=== PATIENT | male | born 1960 | race Caucasian/White ===

== ENCOUNTER 2020-03-07 13:55 | Emergency (ER) | payer OTHER, SELFPAY | END 2020-03-07 15:17 | disposition left against medical advice (07) | PROVIDERS: Emergency Provider Emergency Medicine; PCP Internal Medicine | DX: T63.481A Toxic effect of venom of other arthropod, accidental (unintentional), initial encounter (principal); M79.606 Pain in leg, unspecified; Y92.9 Unspecified place or not applicable | CPT/HCPCS: 99281 ==

== ENCOUNTER 2020-03-07 18:16 | Emergency (ER) | payer OTHER, SELFPAY | END 2020-03-07 19:30 | disposition left against medical advice (07) | PROVIDERS: Emergency Provider Emergency Medicine; PCP Internal Medicine | DX: T63.481A Toxic effect of venom of other arthropod, accidental (unintentional), initial encounter (principal); Y92.9 Unspecified place or not applicable | CPT/HCPCS: 99281 ==

== ENCOUNTER 2020-03-09 08:26 | Emergency (ER) | payer OTHER, SELFPAY ==
[2020-03-09 08:55] VITALS: BP 143/94; PULSE 61; RESP 16; TEMP 36.6; O2SAT 98; BMI 25.1
--- NOTE | 2020-03-09 09:20 | XR_ITS ---
EXAMINATION: XR TIBIA AND FIBULA, LEFT CLINICAL INFORMATION: Anterior lower leg soft tissue foreign body versus insect in soft tissue. COMPARISON: None TECHNIQUE: AP x2 and lateral view of the lower leg are obtained for 3 views. FINDINGS: There is no visible radiopaque soft tissue foreign body. No gas tracking in soft tissue planes. Bony structures appear normal in attenuation. There is no osteopenia. No periostitis or destructive process. No fracture or dislocation. XR/XR tibia fibula LT 2V IMPRESSION: No visible radiopaque soft tissue foreign body or gas tracking in soft tissues. No focal bony abnormality.
--- NOTE | 2020-03-09 09:21 | ED.SKABFB ---
HPI - Skin/Abscess/Foreign Bdy General Chief complaint: Skin/Abscess/Foreign Body Stated complaint: tick left pardo area Time Seen by Provider: 03/09/20 09:20 Source: patient Mode of arrival: ambulatory History of Present Illness HPI narrative: 59-year-old male with no significant past medical history presenting to the ED complaining of tick/insect bite to left pardo x1 week. Reports feels like insect or tick is under the skin. Admits tried to dig it out in the beginning. Denies fever, chills, itching, FB sensation to other area Related Data Previous Rx's Medication Instructions Recorded doxycycline hyclate 100 mg PO BID 7 Days #14 cap 03/09/20 Allergies Allergy/AdvReac Type Severity Reaction Status Date / Time tramadol Allergy Unknown muscle Verified 04/29/15 00:00 cramps No Known Allergies Allergy Unverified 01/16/20 14:52 Review of Systems Review of Systems: Constitutional: No Weight loss, No Fever, No Chills Musculoskeletal: No joint pain, No Myalgias, No Joint Swelling Skin: +Skin Lesions, No rash Neuro: No Weakness, No Numbness, No Paresthesias Yes all other systems are reviewed and are negative [facility] Past Medical History Attestation statement: The following information was validated with the patient. Surgical History History of bunionectomy (~06/2016) History of excision of mass (~09/2013) History of right inguinal hernia repair (~2001) Family History Family History (Updated 02/27/20 @ 14:55 by Norma Troncoso Anthony) Maternal Grandmother History of diabetes mellitus History of hypertension Social History Social History Advance Directives: No Advance Directives Information Provided: No Physical Exam Vital Signs: Vital Signs: Last Vital Signs Temp 98 F 03/09/20 08:55 Pulse 61 03/09/20 08:55 Resp 16 03/09/20 08:55 BP 143/94 H 03/09/20 08:55 Pulse Ox 98 03/09/20 08:55 Body Mass Index 25.1 Const: General: cooperative and healthy appearing Orientation/consciousness: patient oriented x3 Limitations: no limitations HENMT: Head: Yes normal to inspection Ears: hearing grossly normal bilaterally General nose exam: Normal external nose present Face and sinus: Yes normal facial exam Eyes: General: appearance normal, both eyes and all related structures EOM: EOMs intact bilaterally Neck: Neck: Yes normal visual inspection Chest: Chest palpation & inspection: normal inspection of the chest Resp: Effort & Inspection: normal respiratory effort : General: Yes no CVA tenderness Back/Spine/Pelvis: Back: no CVA tenderness Skin: Other: Small ulcerated area noted to anterior left pardo with mild surrounding erythema. No fluctuance/induration or drainage, no appreciable FB Neuro: General: patient oriented x3 Gait exam (Neuro): Normal gait present Extrem: General: Yes normal to inspection Course Course Course Narrative: -x-ray without acute findings MDM - Skin/Abscess/Foreign Bdy MDM Narrative Medical decision making narrative: On exam VSS, NAD/well-appearing. Exam as above. Concern for early cellulitis due to patient trying to pick at area. No appreciable FB. Low concern for Lyme, no Lyme like rash, no streaking. Will obtain x-ray, and treat for early cellulitis Discharge Plan Discharge Clinical Impression: Cellulitis Patient Disposition: Home, Self-Care Instructions: Cellulitis (ED) Additional Instructions: Looks like you have an early infection in your leg likely from picking at area There was no foreign body or abnormality seen on x-ray Doxycycline as antibiotic, take as prescribed AVOID THE SUN WITH DOXYCYCLINE CAN MAKE YOU HYPERSENSITIVE TO SUNLIGHT If the area on your leg grows, worsens, pain becomes unbearable/severe or you develop fever return to the ED Follow-up with her doctor Prescriptions: New doxycycline hyclate 100 mg capsule 100 mg PO BID 7 Days Qty: 14 RF: 0 Referrals: Chloe Austin MD [Primary Care Provider] - 3 days
== END 2020-03-09 10:43 | disposition home or self-care (01) ==
PROVIDERS: Emergency Provider Emergency Medicine; PCP Internal Medicine
DX: L03.116 Cellulitis of left lower limb (principal); M79.605 Pain in left leg; Z79.899 Other long term (current) drug therapy
CPT/HCPCS: 73590; 99283

== ENCOUNTER 2020-04-02 08:04 | Outpatient (REF) | payer OTHER, SELFPAY | END 2020-04-02 08:05 | disposition home or self-care (01) | LOC: HO.LAB 08:04 | PROVIDERS: Visit Provider Internal Medicine | DX: Z20.828 Contact with and (suspected) exposure to other viral communicable diseases (principal) | CPT/HCPCS: C9803; U0003 ==

== ENCOUNTER 2020-08-10 07:11 | Outpatient (REF) | payer OTHER, SELFPAY ==
--- NOTE | ~2020-08-10 | XR_ITS ---
EXAMINATION: XR LUMBOSACRAL SPINE CLINICAL INFORMATION: Back pain COMPARISON: Previous lumbar spine x-ray May 2013 and lumbar spine MRI December 2018 TECHNIQUE: Three views of the lumbosacral spine. FINDINGS: There is mild curvature of the lower lumbar spine to the left. Bone alignment is otherwise normal. No fracture or dislocation is seen. There is evidence of multilevel degenerative disc disease from L2-L3 to L5-S1. There is lower lumbar spine facet arthritis. XR/XR lumbar spine 2-3V IMPRESSION: Mild curvature of the lower lumbar spine to the left and multilevel degenerative disc disease and facet arthritis.
[2020-08-10 09:00] LABS: Alanine Aminotransferase 228 U/L (0-40); Albumin Level 4.4 g/dL (3.5-5.0); Alkaline Phosphatase 76 U/L (39-117); Anion Gap 13 (12-20); Aspartate Amino Transferase 125 U/L (5-37); Bilirubin Total 0.6 mg/dL (0.0-1.0); Blood Urea Nitrogen 17 mg/dL (9-16); Calcium 9.1 mg/dL (8.4-10.2); Carbon Dioxide 26 mmol/L (22-29); Chloride 105 mmol/L (96-108); Cholesterol 225 mg/dL; Estimated Glomerular Filt Rate > 60; Glucose Fasting 121 mg/dL (60-99); HDL Cholesterol 101 mg/dL; LDL Cholesterol Calculated 111 mg/dl; Potassium 4.9 mmol/L (3.3-5.1); Sodium 139 mmol/L (135-145); Total Protein 6.7 g/dL (6.5-8.0); Triglycerides 66 mg/dL
[2020-08-14 15:12] LABS: Vitamin D 25-OH, D2 <4 ng/mL; Vitamin D 25-OH, D3 13 ng/mL; Vitamin D 25-OH, Total 13 ng/mL (30-100)
== END 2020-08-10 07:12 | disposition home or self-care (01) ==
LOC: HO.LAB 07:11
PROVIDERS: PCP Internal Medicine; Visit Provider Internal Medicine
DX: M54.9 Dorsalgia, unspecified (principal); E55.9 Vitamin D deficiency, unspecified; E78.5 Hyperlipidemia, unspecified
CPT/HCPCS: 36415; 72100; 80053; 80061; 82306

== ENCOUNTER 2020-09-09 10:24 | Outpatient (REF) | payer OTHER, SELFPAY ==
--- NOTE | ~2020-09-09 | XR_ITS ---
EXAMINATION: CERVICAL AND THORACIC SPINE X-RAY CLINICAL INFORMATION: Pain COMPARISON: Previous chest x-ray May 2013 TECHNIQUE: 3 views of the cervical spine and 2 views of the thoracic spine FINDINGS: Cervical spine: Bone alignment is normal. No fracture or dislocation is seen. There is degenerative spondylosis and degenerative disc disease at C4-C5, C5-C6 and C6-C7. Prevertebral soft tissues are normal. Thoracic spine: There is mild curvature of the midthoracic spine to the right with apex at T6-T7. This is similar to May 2013 exam. Bone alignment is otherwise normal. No fracture or dislocation is seen. There is mild degenerative spondylosis of the lower thoracic spine. Paraspinal soft tissues are unremarkable. XR/XR thoracic spine 2V IMPRESSION: Cervical spine: Degenerative spondylosis and degenerative disc disease from C4-C5 to C6-C7. Thoracic spine: Mild scoliosis of the midthoracic spine and spondylosis of the lower thoracic spine.
--- NOTE | ~2020-09-09 | US_ITS ---
EXAMINATION: US ABDOMEN LIMITED WITH LIVER ELASTOGRAPHY CLINICAL INFORMATION: Elevated transaminase COMPARISON: None. TECHNIQUE: Real-time imaging of the abdominal viscera. Noninvasive ultrasound liver fibrosis assessment is performed using Kanu ElastPQ point quantification shear wave elastography (pSWE) with a C5-2 MHz transducer. Multiple elastography samples are obtained. FINDINGS: PANCREAS: The visualized pancreatic head and body are normal in appearance. The remainder of the pancreas is obscured from visualization by the overlying bowel gas. LIVER: Liver echotexture is increased. The liver is enlarged. The liver contour is normal.. No focal lesion or intrahepatic biliary duct dilatation. The right lobe measures 17 cm in length. The left lobe measures 8.2 cm in length. Portal flow is normal/hepatopedal Shear wave liver elastography median stiffness is 1.6 m/s (reference: normal median stiffness is 1.3 m/s or less). IQR/median stiffness to assess sampling precision is 0.1 (reference: good quality data set is IQR/median stiffness of 0.15 or less). GALLBLADDER: Normal. The gallbladder is physiologically distended without evidence of stones, sludge, polyps, wall thickening or pericholecystic fluid. COMMON BILE DUCT: Normal in caliber measuring 0.4 cm in diameter. RIGHT KIDNEY: Normal. No hydronephrosis. No renal calculi or focal parenchymal lesions. The kidney measures 9.2 cm in maximum dimension. FREE FLUID: None. US/US abdomen alberto w elastography IMPRESSION: 1. Impression: Enlarged echogenic liver probably representing fatty infiltration. Limited visualization of the tail of the pancreas. 2. Liver elastography: Adequate sampling. In the absence of other known clinical signs, rule out compensated advanced chronic liver disease. REFERENCE: Society of Radiologists in Ultrasound Liver Stiffness Thresholds (2020): LIVER STIFFNESS THRESHOLDS: *Liver Stiffness equal or less than 1.3 m/s: High probability of being normal. *Liver Stiffness less than 1.7 m/s: In the absence of other known clinical signs, rules out compensated advanced chronic liver disease. *Liver Stiffness 1.7-2.1 m/s: Suggestive of compensated advanced chronic liver disease but need further test for confirmation. *Liver Stiffness over 2.1 m/s: Rules in compensated advanced chronic liver disease. *Liver Stiffness over 2.4 m/s: Suggestive of clinically significant portal hypertension. QUALITY OF DATA SET: *IQR/Median value equal or less than 0.15 implies a quality data set. *IQR/Median value over 0.15 implies a poor quality data set. SIGNIFICANT CHANGE FROM PRIOR EXAM: Significant change if liver stiffness measurement is 10% or greater from prior exam. OTHER CONSIDERATIONS: The stage of liver fibrosis may be overestimated in the setting of acute hepatitis, liver inflammation, elevated liver function tests, hepatic vascular congestion, obstructive cholestasis, non-fasting state, and infiltrative diseases such as amyloidosis and lymphoma. In some patients with NAFLD, the liver stiffness thresholds for compensated advanced chronic liver disease may be lower. In causes other than viral hepatitis and NAFLD, liver stiffness thresholds are not well established.
--- NOTE | ~2020-09-09 | XR_ITS ---
EXAMINATION: CERVICAL AND THORACIC SPINE X-RAY CLINICAL INFORMATION: Pain COMPARISON: Previous chest x-ray May 2013 TECHNIQUE: 3 views of the cervical spine and 2 views of the thoracic spine FINDINGS: Cervical spine: Bone alignment is normal. No fracture or dislocation is seen. There is degenerative spondylosis and degenerative disc disease at C4-C5, C5-C6 and C6-C7. Prevertebral soft tissues are normal. Thoracic spine: There is mild curvature of the midthoracic spine to the right with apex at T6-T7. This is similar to May 2013 exam. Bone alignment is otherwise normal. No fracture or dislocation is seen. There is mild degenerative spondylosis of the lower thoracic spine. Paraspinal soft tissues are unremarkable. XR/XR cervical spine 3V IMPRESSION: Cervical spine: Degenerative spondylosis and degenerative disc disease from C4-C5 to C6-C7. Thoracic spine: Mild scoliosis of the midthoracic spine and spondylosis of the lower thoracic spine.
== END 2020-09-09 10:25 | disposition home or self-care (01) ==
LOC: HO.US 10:24
PROVIDERS: PCP Internal Medicine; Visit Provider Internal Medicine
DX: M54.2 Cervicalgia (principal); M54.9 Dorsalgia, unspecified; R74.01 Elevation of levels of liver transaminase levels
CPT/HCPCS: 72040; 72070; 76705; 76981

== ENCOUNTER → 2020-09-22 11:04 | Outpatient (BNVA) | payer OTHER, SELFPAY | PROVIDERS: PCP Internal Medicine; Referring Provider Internal Medicine; Visit Provider Nurse Practitioner | DX: R74.01 Elevation of levels of liver transaminase levels (principal); R10.9 Unspecified abdominal pain; R73.02 Impaired glucose tolerance (oral); D12.6 Benign neoplasm of colon, unspecified | CPT/HCPCS: 99202 ==

== ENCOUNTER 2020-09-25 12:54 | Outpatient (REF) | payer OTHER, SELFPAY ==
[2020-09-25 13:28] LABS: MANUAL DIFF FLAG NO
[2020-09-25 13:41] LABS: Basophils Absolute Auto 0.1 X10*3/uL (0.0-0.2); Eosinophils Absolute Auto 0.2 X10*3/uL (0.0-0.4); Eosinophils Percent Auto 4.8 % (0-4); Hematocrit 41.8 % (42-52); Hemoglobin 14.1 g/dl (14.0-18.0); Imm Gran Abs Auto 0.03 X10*3/uL (0.00-0.03); Imm Gran Pct Auto 0.6 % (0.0-0.4); Lymphocytes Absolute Auto 1.4 X10*3/uL (1.2-4.9); Lymphocytes Percent Auto 28.6 % (20-40); Mean Corpuscular HGB Conc 33.7 g/dl (31.0-36.0); Mean Corpuscular Hemoglobin 31.6 pg (27.0-33.0); Mean Corpuscular Volume 93.7 fL (80-98); Mean Platelet Volume 9.6 fL (9.4-12.4); Monocytes Absolute Auto 0.5 X10*3/uL (0.1-1.2); Monocytes Percent Auto 9.5 % (2-11); Neutrophils Absolute Auto 2.8 X10*3/uL (2.0-8.3); Neutrophils Percent Auto 55.5 % (45-73); Platelet Count 270 X10*3/uL (160-400); Red Blood Count 4.46 X10*6/uL (4.60-5.80); Red Cell Distribution Width 12.9 % (11.0-16.0)
[2020-09-25 13:49] LABS: Gamma Glutamyl Transpeptidase 41 U/L (11-51)
[2020-09-25 14:13] LABS: Ferritin 69 ng/mL (20-250)
[2020-09-27 15:27] LABS: Anti Nuclear Antibody Screen NEGATIVE (NEGATIVE)
[2020-09-29 04:53] LABS: HBS Num1 2.07 mIU/mL (0-7.99); HBc Num1 0.04 S/CO (0.00-0.79); Hepatitis B Core Antibody Nonreactive (Nonreactive); ~HepC Num1 0.03 S/CO (0.00-0.79); ~Hepatitis B Surface Antibody NONREACTIVE (Nonreactive); ~Hepatitis C Antibody Nonreactive (Nonreactive)
[2020-09-29 04:55] LABS: HBsAGNum1 0.18 S/CO (0.00-0.99); HIV AB/AG Nonreactive (Nonreactive); HIV Num 1 0.06 S/CO (0.00-0.99); Hepatitis B Surface Antigen Negative (Negative)
[2020-09-29 13:33] LABS: Alpha Fetoprotein 1.5 ng/mL (<6.1)
[2020-09-30 07:36] LABS: Hepatitis A Antibody IgM 0.31 Index (0-0.79); ~Hepatitis A Antibody IgM Nonreactive (Nonreactive)
[2020-09-30 16:31] LABS: Mitochondrial Antibodies NEGATIVE (NEGATIVE)
[2020-10-01 11:22] LABS: Smooth Muscle Antibody <20 U (<20)
== END 2020-09-25 12:55 | disposition home or self-care (01) ==
LOC: HO.LAB 12:54
PROVIDERS: PCP Internal Medicine; Visit Provider Nurse Practitioner
DX: R74.01 Elevation of levels of liver transaminase levels (principal); D12.6 Benign neoplasm of colon, unspecified
CPT/HCPCS: 36415; 82105; 82728; 82977; 85025; 86038; 86039; 86255; 86256; 86704; 86706; 86709; 86803; 87340; 87389

== ENCOUNTER 2020-11-04 10:17 | Outpatient (REF) | payer OTHER, SELFPAY ==
--- NOTE | ~2020-11-04 | US_ITS ---
EXAMINATION: US ABDOMEN LIMITED CLINICAL INFORMATION: Unspecified abdominal pain.? Abdominal wall hernia. COMPARISON: Limited abdominal ultrasound 09/09/2020. KUB 05/07/2015. TECHNIQUE: Real-time imaging of the left flank/abdominal wall, area indicated by patient. FINDINGS: No hernia is evident by ultrasound. No soft tissue mass or fluid collection is seen. US/US abdomen limited IMPRESSION: No hernia seen by ultrasound.
== END 2020-11-04 10:18 | disposition home or self-care (01) ==
LOC: HO.US 10:17
PROVIDERS: Visit Provider Nurse Practitioner
DX: R10.9 Unspecified abdominal pain (principal)
CPT/HCPCS: 76705

== ENCOUNTER 2020-12-04 12:38 | Day surgery (SDC) | payer OTHER, SELFPAY ==
[2020-11-30 11:01] VITALS: BMI 27.0
--- NOTE | 2020-12-03 11:51 | P.CONAN_ITS ---
Documented by User: Vidhya Miranda 12/03/20 11:53 HPI - Anesthesia Eval Consult details Narrative: 60yo M for Colonoscopy PMFSH Active Problems Active Problems: All Active Problems (Updated 09/22/20 @ 12:08 by KIMBERLY Olvera) Tubular adenoma of colon (Acute) Abdominal pain (Acute) Chest pain (Acute) Neck pain (Acute) Impaired glucose tolerance (Acute) Transaminitis (Acute) Back pain (Acute) Past Medical History Medical History Back pain Chest pain Impaired glucose tolerance Neck pain Transaminitis Family History Family History Maternal Grandmother History of diabetes mellitus History of hypertension Mother Medical history unknown Father Medical history unknown Son No problems noted. Son No problems noted. Son No problems noted. Daughter No problems noted. Surgical History Surgical History H/O colonoscopy History of bunionectomy (~06/2016) History of excision of mass (~09/2013) History of right inguinal hernia repair (~2001) History of varicose vein ligation and stripping Social History Social History Alcohol intake: current Alcohol intake frequency: 0-2 drinks per day Alcohol type: beer Patient Tobacco Use Status: Never used Tobacco Advance Directives Information Provided: No Meds Allergies Allergy/AdvReac Type Severity Reaction Status Date / Time tramadol Allergy Intermediate muscle Verified 12/04/20 13:04 cramps Home Medications Medication Instructions Recorded Confirmed Last Taken Type cyclobenzaprine 10 mg tablet 10 mg PO BEDTIME PRN 08/10/20 11/30/20 Unknown History Exam Exam Date and Time: December 03, 2020 1151 Height,Weight and Vital Signs: Height 5 ft 9 in Weight 83.064 kg Pertinent Lab Results Pertinent Lab Results: Laboratory Tests 08/10/20 09/25/20 07:38 13:01 WBC 5.0 Hgb 14.1 Hct 41.8 L Plt Count 270 Sodium 139 Potassium 4.9 Chloride 105 Carbon Dioxide 26 BUN 17 H Creatinine 1.10 Assessment and Plan Assessment Anesthesia Assessment: Chart Reviewed Documented by User: Lety Rooney MD 12/04/20 14:03 PMFSH Past Medical History Medical History Back pain Chest pain Impaired glucose tolerance Neck pain Transaminitis Family History Family History Maternal Grandmother History of diabetes mellitus History of hypertension Mother Medical history unknown Father Medical history unknown Son No problems noted. Son No problems noted. Son No problems noted. Daughter No problems noted. Surgical History Surgical History H/O colonoscopy History of bunionectomy (~06/2016) History of excision of mass (~09/2013) History of right inguinal hernia repair (~2001) History of varicose vein ligation and stripping History of Problems with Anesthesia: No Social History Social History Alcohol intake: current Alcohol intake frequency: 0-2 drinks per day Alcohol type: beer Patient Tobacco Use Status: Never used Tobacco Advance Directives Information Provided: No Meds Allergies Allergy/AdvReac Type Severity Reaction Status Date / Time tramadol Allergy Intermediate muscle Verified 12/04/20 13:04 cramps Home Medications Medication Instructions Recorded Confirmed Last Taken Type cyclobenzaprine 10 mg tablet 10 mg PO BEDTIME PRN 08/10/20 11/30/20 Unknown H istory Exam Airway Mallampati Class: II TM Dist: >3cm Neck ROM: Full Loose/Missing/Broken Teeth: No Heart: RRR Lungs: CTA Assessment and Plan Assessment Anesthesia Assessment: Anesthesia Plan Discussed Final Anesthetic Review History of Problems with Anesthesia: No NPO: Yes ASA Class: II Final Preanesthetic Review: Meds/Allgs Chart Reviewed, Consent Obtained/Reviewed and Anes Risks/Benef Reviewed Patient Risk: Low Procedure Risk: Low Anesthetic Plan Anesthetic Plan: MAC: Disposition: Standard PACU
[2020-12-04 13:21] VITALS: BP 138/91; PULSE 66; RESP 18; TEMP 36.7; O2SAT 98
[2020-12-04] MEDS: Lactated Ringers 1,000 ML 100 ML IVCONT (13:32)
--- NOTE | 2020-12-04 14:35 | MHC.SHP ---
Pre-Procedural Eval Section A Date of Service: 12/04/20 The patient is an INPATIENT: No The History & Physical has been completed within 30 days and I have reviewed it.: No Section B Chief Complaint: Tubular adenoma of colon Details of Present Illness: Colon cancer screening, history of colon polyps Relevant Family History (Specify if Yes): No Relevant Social History: None Present Medications: see Short Stay Collaborative assessment Medical History: Significant History (Back pain Chest pain Impaired glucose tolerance Neck pain Transaminitis) History of Previous Operations: Relevant previous surgery/procedure and date(s) (History of bunionectomy (~06/2016) History of excision of mass (~09/2013) History of right inguinal hernia repair (~2001) History of varicose vein ligation and stripping) Allergies: Allergies Allergy/AdvReac Type Severity Reaction Status Date / Time tramadol Allergy Intermediate muscle Verified 12/04/20 13:04 cramps Review of Systems Sugical H&P ROS: Negative: Constitution, Cardiovascular, Respiratory and Gastrointestinal Exam Surgical H&P Exam: Normal: Heart, Normal: Lungs, Normal: Extremities and Normal: Abdomen Plan Diagnosis/Plan: Unchanged I have reviewed the history and physical and performed a pertinent physical examination on my patient. No changes have occurred unless specified.
--- NOTE | 2020-12-04 15:47 | PM.OP ---
Brief Operative Note Date of Service: 12/04/20 Pre-op diagnosis: Colon cancer screening, known hx of a large adenomatous cecal polyp detected in 2017 and pt declined surgery Post-op diagnosis: other (cecal mass, diverticulosis) Procedure: COLONOSCOPY TILL CECUM WITH BIOPSIES Consent: Indications for the procedure and potential complications of bleeding, perforation, reaction to medications and missed diagnosis were discussed with the patient and informed consent was obtained. Instrument: Olympus PCF H 190 L variable stiffness pediatric colonoscope Monitoring: Vital signs and clinical assessment, intermittent blood pressure monitoring, continuous EKG monitoring, Pulse oximetry and Carbon Dioxide monitoring were done throughout the procedure. Colon withdrawl time was 23 minutes. Procedure: The patient was placed in the left lateral decubitis position and pre-procedure medications were administered. After a digital rectal examination of the ano-rectum, the video colonoscope was inserted into the rectum and advanced through the colon to the cecum. The colonoscope was slowly withdrawn in a retrograde panoramic fashion and the colon mucosa was carefully examined including a retroflexed view of the rectum. Findings and interventions are described below. Procedure Difficulty: Without difficulty Findings: Terminal Ileum: Not evaluated Cecum: A 6-7 cms polypoidal mass in the cecum extending from the ICV and covering 60% of the colon circumference - multiple biopsies were obtained Ascending Colon: Normal Transverse Colon: Normal Descending Colon: Moderate diverticulosis Sigmoid Colon: Moderate diverticulosis Rectum: Normal Ano-rectum: Normal Colon preparation: Good after copious irrigation Impression and Post Procedure Diagnosis: Colonoscopy Findings: A 6-7 cms polypoidal mass in the cecum extending from the ICV and covering 60% of the colon circumference - multiple biopsies were obtained Moderate diverticulosis seen in the left colon Plan: Await pathology results. Pt will be scheduled for an abdominal CT scan and referred to General surgery clinic. Patient to schedule a FU appointment in the GI Clinic with Paige Parish NP. Repeat Colonoscopy in 1 year ( after patient has surgery). Above findings were reviewed with the patient and diverticulosis handout was given in the discharge area Surgeon: Chele Talbert MD Anesthesia: MAC (Lilia Guzman CRNA) Was an Monorail Operator used for this Procedure?: No Monorail Operator: Herbie Dawn Estimated blood loss (mL): 0 Pathology: other (A. cecal mass) Condition: stable Disposition: PACU
[2020-12-04 15:52] VITALS: BP 114/83; PULSE 71; RESP 18; TEMP 36.1; O2SAT 96
[2020-12-04 16:07] VITALS: BP 142/85; PULSE 52; RESP 18; O2SAT 97
--- NOTE | 2020-12-04 19:24 | W.PM.OPN ---
Operative Note Operative Note Date of Service: 12/04/20 Narrative: Pre-op diagnosis:?Colon cancer screening, known hx of a large adenomatous cecal polyp detected in 2017 and pt declined surgery Post-op diagnosis:?other (cecal mass, diverticulosis) Procedure:? COLONOSCOPY TILL CECUM WITH BIOPSIES Consent: Indications for the procedure and potential complications of bleeding, perforation, reaction to medications and missed diagnosis were discussed with the patient and informed consent was obtained. Instrument: Olympus PCF H 190 L variable stiffness pediatric colonoscope Monitoring: Vital signs and clinical assessment, intermittent blood pressure monitoring, continuous EKG monitoring, Pulse oximetry and Carbon Dioxide monitoring were done throughout the procedure. Colon withdrawl time was 23 minutes. Procedure: The patient was placed in the left lateral decubitis position and pre-procedure medications were administered. After a digital rectal examination of the ano-rectum, the video colonoscope was inserted into the rectum and advanced through the colon to the cecum. The colonoscope was slowly withdrawn in a retrograde panoramic fashion and the colon mucosa was carefully examined including a retroflexed view of the rectum. Findings and interventions are described below. Procedure Difficulty: Without difficulty Findings: Terminal Ileum: Not evaluated Cecum:? A 6-7 cms polypoidal mass in the cecum extending from the ICV and covering 60% of the colon circumference - multiple biopsies were obtained Ascending Colon:? Normal Transverse Colon:? Normal Descending Colon:? Moderate diverticulosis Sigmoid Colon:? Moderate diverticulosis Rectum:? Normal Ano-rectum:? Normal Colon preparation: ? Good after copious irrigation Impression and Post Procedure Diagnosis: Colonoscopy Findings: A 6-7 cms polypoidal mass in the cecum extending from the ICV and covering 60% of the colon circumference - multiple biopsies were obtained Moderate diverticulosis seen in the left colon Plan: Await pathology results. Pt will be scheduled for an abdominal CT scan and referred to General surgery clinic. Patient to schedule a FU appointment in the GI Clinic with? Paige Parish NP. Repeat Colonoscopy in 1 year ( after patient has surgery). Above findings were reviewed with the patient and diverticulosis handout was given in the discharge area Surgeon:?Chele Talbert MD Anesthesia:?MAC (Lilia Guzman CRNA) Was an Dental Office Manager used for this Procedure?:?No Dental Office Manager:?Herbie Dawn Estimated blood loss (mL):?0 Pathology:?other (A.? cecal mass) Condition:?stable Disposition:?PACU
== END 2020-12-04 16:55 ==
LOC: HO.SSS 12:38
PROVIDERS: PCP Internal Medicine; Visit Provider Internal Medicine Gastroenterology
PROC: 0DJD8ZZ Inspection of Lower Intestinal Tract, Via Natural or Artificial Opening Endoscopic (ICD-10-PCS; CPT 45378; principal; 2020-12-04 14:10)
DX: Z12.11 Encounter for screening for malignant neoplasm of colon (principal); Z86.010 Personal history of colon polyps; C18.0 Malignant neoplasm of cecum; K57.30 Diverticulosis of large intestine without perforation or abscess without bleeding; R73.02 Impaired glucose tolerance (oral); Z79.899 Other long term (current) drug therapy; Z88.8 Allergy status to other drugs, medicaments and biological substances
CPT/HCPCS: 45380; 88305; 88341; 88342; 88360

== ENCOUNTER 2020-12-22 08:17 | Outpatient (REF) | payer OTHER, SELFPAY ==
--- NOTE | ~2020-12-22 | CT_ITS ---
EXAMINATION: CT ABDOMEN AND PELVIS WITH CONTRAST CLINICAL INFORMATION: Other specified diseases of intestine COMPARISON: Previous abdominal ultrasounds most recent October 2020 and pelvic ultrasound December 2019 TECHNIQUE: Multidetector volumetric images were obtained from the superior aspect of the liver through the pubic symphysis following administration 85 mL of Omnipaque 350 intravenous contrast. Sagittal and coronal reformatted images were obtained on the technologist's workstation. Oral contrast: Yes This CT examination was performed using dose optimization techniques as appropriate, variously including the following: *Automated exposure control *Adjustment of mA and/or kV according to patient size (this includes techniques or standardized protocols for targeted exams where dose is matched to indication/reason for exam; i.e. extremities or head) *Use of iterative reconstruction technique DLP: 403 mGy-cm FINDINGS: LUNG BASES: The visualized lung bases are unremarkable. LIVER, GALLBLADDER, AND BILIARY TREE: The liver is low in attenuation suggestive of fatty infiltration. The gallbladder is unremarkable with no evidence of radiopaque gallstones, gallbladder wall thickening, or obvious pericholecystic inflammatory changes. PANCREAS: Unremarkable. SPLEEN: Unremarkable. ADRENAL GLANDS: Unremarkable. KIDNEYS AND URETERS: The kidneys are normal in size, shape, and attenuation. No hydronephrosis, hydroureter, or calculi seen. No perinephric stranding. BLADDER: Unremarkable. GASTROINTESTINAL TRACT: There is a question of a focal wall thickening of the anterior medial cecum, for example axial image 49 series 3, coronal reconstructed image 42 and sagittal reconstructed image 83. There is mild diverticulosis of the distal colon. Small and large bowel is otherwise unremarkable. The appendix is unremarkable. ABDOMINAL WALL: There is a small umbilical hernia containing fat. LYMPH NODES: Normal. VASCULAR: Unremarkable. PELVIC VISCERA: Unremarkable. OSSEOUS STRUCTURES: There are degenerative changes of the spine. CT/CT abdomen pelvis w con IMPRESSION: Focal wall thickening of the cecum. Infectious, inflammatory and neoplastic process should be considered. . Correlation with colonoscopy recommended. Mild diverticulosis. Fatty liver.
[2020-12-22 09:54] LABS: Alanine Aminotransferase 66 U/L (0-40); Albumin Level 4.4 g/dL (3.5-5.0); Alkaline Phosphatase 68 U/L (39-117); Anion Gap 13 (12-20); Aspartate Amino Transferase 33 U/L (5-37); Bilirubin Direct < 0.2 mg/dL (0.0-0.5); Bilirubin Total 0.4 mg/dL (0.0-1.0); Blood Urea Nitrogen 14 mg/dL (9-16); Calcium 9.3 mg/dL (8.4-10.2); Carbon Dioxide 24 mmol/L (22-29); Chloride 109 mmol/L (96-108); Estimated Glomerular Filt Rate > 60; Glucose Fasting 112 mg/dL (60-99); Sodium 141 mmol/L (135-145); Total Protein 6.7 g/dL (6.5-8.0)
[2020-12-22] MEDS: iohexoL 350 MG/ML 100 ML INFUS..BTL 85 ML IV (10:52)
[2020-12-24 11:41] LABS: Alpha Fetoprotein 1.9 ng/mL (<6.1)
[2020-12-26 06:47] LABS: Mitochondrial Antibodies NEGATIVE (NEGATIVE)
== END 2020-12-22 08:18 | disposition home or self-care (01) ==
LOC: HO.CT 08:17
PROVIDERS: Absent Provider Internal Medicine; PCP Internal Medicine; Visit Provider Internal Medicine Gastroenterology
DX: K63.89 Other specified diseases of intestine (principal); R74.01 Elevation of levels of liver transaminase levels
CPT/HCPCS: 36415; 74177; 80053; 80076; 82105; 82248; 86255; 86256; Q9967

== ENCOUNTER → 2021-01-07 10:59 | Outpatient (BNVA) | payer OTHER, SELFPAY | PROVIDERS: PCP Internal Medicine; Visit Provider Surgery | DX: K63.89 Other specified diseases of intestine (principal) | CPT/HCPCS: 99202 ==

== ENCOUNTER → 2021-02-10 09:13 | Outpatient (BNVA) | payer OTHER, SELFPAY | PROVIDERS: PCP Internal Medicine; Referring Provider Internal Medicine; Visit Provider Surgery | DX: K63.89 Other specified diseases of intestine (principal) | CPT/HCPCS: 99212 ==

== ENCOUNTER → 2021-02-18 09:41 | Outpatient (BNVA) | payer OTHER, SELFPAY | PROVIDERS: PCP Internal Medicine; Visit Provider Nurse Practitioner ==

== ENCOUNTER 2021-02-26 08:00 | Inpatient (IN) | payer OTHER, SELFPAY ==
--- NOTE | 2021-02-17 | ECG_ITS ---
Test Reason : PREOP Blood Pressure : / mmHG Vent. Rate : 071 BPM Atrial Rate : 071 BPM P-R Int : 164 ms QRS Dur : 106 ms QT Int : 396 ms P-R-T Axes : 071 -36 032 degrees QTc Int : 430 ms Sinus rhythm with Premature atrial complexes with Aberrant conduction Left axis deviation Abnormal ECG No previous ECGs available Referred By: Chloe Henry Electronically Signed By:RAI GALEANA MD
[2021-02-17 12:04] VITALS: BP 158/96; PULSE 71; RESP 20; O2SAT 98; BMI 26.1
--- NOTE | 2021-02-17 12:15 | P.CONAN_ITS ---
Documented by User: Vidhya Miranda NP 02/25/21 11:06 HPI - Anesthesia Eval Consult details Narrative: 60yo M for Right Hand Assisted Laparoscopic Colon Resection, Poss open +ETOH daily: Admits 2 nips + 1 beer - denies any hx of w/drawal. Encouraged decrease preop. Pt has plan to stop drinking. PMFSH Active Problems Active Problems: All Active Problems (Updated 02/17/21 @ 12:00 by Carol Marsh RN) Tubular adenoma of colon (Acute) Abdominal pain (Acute) Colon cancer screening (Acute) ROSADO (nonalcoholic steatohepatitis) (Acute) Chest pain (Acute) Neck pain (Acute) Impaired glucose tolerance (Acute) Back pain (Acute) Past Medical History Medical History Back pain Chest pain History of gibbs Impaired glucose tolerance Mass of cecum Neck pain Numbness and tingling in left hand Transaminitis Family History Family History Maternal Grandmother History of diabetes mellitus History of hypertension Mother Medical history unknown Father Medical history unknown Son No problems noted. Son No problems noted. Son No problems noted. Daughter No problems noted. Family history of problems with anesthesia: Unobtainable (Adopted) Surgical History Surgical History (Updated 02/26/21 @ 06:44 by Arti Walsh RN) H/O colonoscopy History of bunionectomy History of esophagogastroduodenoscopy (EGD) History of excision of mass History of right inguinal hernia repair History of varicose vein ligation and stripping Hx of hand surgery History of Problems with Anesthesia: No Social History Social History Are you a primary career development director to a significant other at home: No Do you presently have visiting nurse or other home services: No Alcohol intake: current Alcohol intake frequency: 3 or more drinks per day Alcohol type: beer Patient Tobacco Use Status: Never used Tobacco Narrative Narrative: No recent illness. Describes atyplcal CP. [place] over chest . Happens randomly. Very active outside without symptoms. EKG ordered at [facility]. Meds Allergies Allergy/AdvReac Type Severity Reaction Status Date / Time tramadol Allergy Intermediate muscle Verified 02/26/21 06:44 cramps Exam Exam Date and Time: February 17, 2021 1215 Height,Weight and Vital Signs: Height 5 ft 9 in Weight 80.286 kg Last Vital Signs Pulse 71 02/17/21 12:04 Resp 20 02/17/21 12:04 BP 158/96 H 02/17/21 12:04 Pulse Ox 98 02/17/21 12:04 Pertinent Lab Results Pertinent Lab Results: Laboratory Tests 02/17/21 02/17/21 13:00 13:00 WBC 6.7 Hgb 15.2 Hct 44.0 Plt Count 287 Sodium 137 Potassium 4.8 Chloride 103 Carbon Dioxide 25 BUN 13 Creatinine 1.12 Laboratory Tests 02/17/21 13:00 Blood Type O Positive Antibody Screen NEGATIVE Narrative Narrative: EKG 01/2021 Vent. Rate : 071 BPM ? ? Atrial Rate : 071 BPM ?? P-R Int : 164 ms? QRS Dur : 106 ms ? ? QT Int : 396 ms ? ? ? P-R-T Axes : 071 -36 032 degrees ?? QTc Int : 430 ms ? Sinus rhythm with Premature atrial complexes with Aberrant conduction Left axis deviation Abnormal ECG No previous ECGs available Negative Exercise stress 2014 Airway Mallampati Class: I TM Dist: >3cm Neck ROM: Full (? Pinched nerve in neck) Loose/Missing/Broken Teeth: Yes (2 x molars missing, left upper molar chipped) Heart: RRR Lungs: CTAB Assessment and Plan Final Anesthetic Review Family History of Problems with Anesthesia: Unobtainable (Adopted) History of Problems with Anesthesia: No Documented by User: Gordon Manzo MD 02/26/21 07:55 [facility] Past Medical History Medical History Back pain Chest pain History of gibbs Impaired glucose tolerance Mass of cecum Neck pain Numbness and tingling in left hand Transaminitis Family History Family History Maternal Grandmother History of diabetes mellitus History of hypertension Mother Medical history unknown Father Medical history unknown Son No problems noted. Son No problems noted. Son No problems noted. Daughter No problems noted. Family history of problems with anesthesia: No (Adopted) Surgical History Surgical History (Updated 02/26/21 @ 06:44 by Arti Walsh RN) H/O colonoscopy History of bunionectomy History of esophagogastroduodenoscopy (EGD) History of excision of mass History of right inguinal hernia repair History of varicose vein ligation and stripping Hx of hand surgery History of Problems with Anesthesia: No Social History Social History Are you a primary career development director to a significant other at home: No Do you presently have visiting nurse or other home services: No Alcohol intake: current Alcohol intake frequency: 3 or more drinks per day Alcohol type: beer Patient Tobacco Use Status: Never used Tobacco Meds Allergies Allergy/AdvReac Type Severity Reaction Status Date / Time tramadol Allergy Intermediate muscle Verified 02/26/21 06:44 cramps Exam Airway Mallampati Class: I TM Dist: >3cm Neck ROM: Full Assessment and Plan Final Anesthetic Review Family History of Problems with Anesthesia: No (Adopted) History of Problems with Anesthesia: No NPO: Yes ASA Class: II Final Preanesthetic Review: No Changes in Pt Med Stat, Meds/Allgs Chart Reviewed, Consent Obtained/Reviewed and Anes Risks/Benef Reviewed Patient Risk: Low Procedure Risk: Intermediate Anesthetic Plan Anesthetic Plan: GA and Agree w/ Assess. and Plan Disposition: Standard PACU
[2021-02-17 13:14] LABS: Hemoglobin 15.2 g/dl (14.0-18.0); Mean Corpuscular HGB Conc 34.5 g/dl (31.0-36.0); Mean Corpuscular Hemoglobin 31.5 pg (27.0-33.0); Mean Corpuscular Volume 91.3 fL (80-98); Platelet Count 287 X10*3/uL (160-400); Red Blood Count 4.82 X10*6/uL (4.60-5.80); Red Cell Distribution Width 12.5 % (11.0-16.0); White Blood Count 6.7 X10*3/uL (4.8-10.8)
[2021-02-17 13:19] LABS: INTERNATIONAL NORM RATIO 0.9 (0.9-1.1); Prothrombin Time 10.7 SEC (9.9-13.0)
[2021-02-17 13:22] LABS: Estimated Average Glucose 105 mg/dL; Hemoglobin A1c % 5.3 %
[2021-02-17 13:36] LABS: Alanine Aminotransferase 95 U/L (0-40); Albumin Level 4.7 g/dL (3.5-5.0); Alkaline Phosphatase 77 U/L (39-117); Anion Gap 14 (12-20); Aspartate Amino Transferase 65 U/L (5-37); Bilirubin Total 0.8 mg/dL (0.0-1.0); Blood Urea Nitrogen 13 mg/dL (9-16); Calcium 9.7 mg/dL (8.4-10.2); Carbon Dioxide 25 mmol/L (22-29); Chloride 103 mmol/L (96-108); Creatinine Clr Calc Pharmacy 71.8; Estimated Glomerular Filt Rate > 60; Glucose Random 102 mg/dL (60-115); Potassium 4.8 mmol/L (3.3-5.1); Sodium 137 mmol/L (135-145); Total Protein 7.3 g/dL (6.5-8.0)
[2021-02-26] VITALS (14 sets, daily range): BP systolic 110–165; BP diastolic 78–105; PULSE 58–84; RESP 12–18; TEMP 36.1–36.7; O2SAT 93–100
--- NOTE | ~2021-02-26 | XR_ITS ---
EXAMINATION: XR CHEST CLINICAL INFORMATION: NG tube placement COMPARISON: CT abdomen/pelvis 02/21/2021 TECHNIQUE: Frontal view of the chest was obtained. FINDINGS: NG tube tip overlies the fundus of the stomach. The lungs are hypoinflated. Subsegmental right basilar atelectasis is suspected. No additional consolidation is seen. No evidence of pneumothorax, pleural effusion, or pulmonary edema. The cardiomediastinal contour is unremarkable. No acute osseous findings are seen. Multiple dilated gas-filled small bowel loops are present in the abdomen. XR/XR chest 1V IMPRESSION: 1. NG tube tip in the stomach. 2. Low lung volumes. 3. Multiple dilated gas-filled small bowel loops in the abdomen concerning for obstruction or ileus in the proper clinical setting.
[2021-02-26 07:19] LABS: COVID-19 Test Negative (Negative)
[2021-02-26] MEDS: Lactated Ringers 1,000 ML 100 ML IVCONT (07:30)
--- NOTE | 2021-02-26 10:13 | W.PM.OPN ---
Operative Note Operative Note Date of Service: 02/26/21 Narrative: Preop diagnosis: Cecal polyp with intramucosal adenocarcinoma Postop diagnosis: The same Procedure: Hand assisted laparoscopic right colon resection Surgeon: Celso Bernstein MD assistant infant teacher: CORAL Zelaya The patient is a 60-year-old male who had previously undergone colonoscopy about 2 years ago noted to have a cecal polyp. At that time, this was unresectable endoscopically because of the flat nature. I had scheduled him for right colon resection but he canceled he had another colonoscopy last December, and again this cecal polyp was seen. Biopsies of these revealed an intramucosal adenocarcinoma. I had a discussion with him about proceeding with the resection. He eventually consented. He understood the technique of the procedure as well as the risks, benefits, and alternatives. He was brought to the operating room and placed supine on the table under general anesthesia via endotracheal tube. The abdomen is prepped and draped in the usual sterile fashion. A Small catheter was in place. A surgical time-out was done. The patient received Cefotan 2 g IV preoperatively I made a short midline incision starting from the level umbilicus cephalad using blade 15. And this carried down through the full-thickness of the skin subcutaneous fat down to the fascia. The fascia was incised the peritoneum was entered. We extended the fascial incision to optimize the length of the skin incision. The Allan wound retractor was placed. The GelPort was positioned and we insufflated to this GelPort with an insufflating port to a pressure of 15 mm hg. A 30 degree 10 mm laparoscope was placed through this insufflating port. With laparoscopic visualization a proceeded to then insert 5/12 mm ports in the epigastric area just below the costal margin, and on the left upper quadrant. I repositioned the laparoscopic through the epigastric port. The patient was then placed any [id number] position. I placed my the GelPort and reflected all the small bowel loops away from the right lower quadrant. I easily visualized the cecum, appendix and the entire right colon. I proceeded to gently dissect the peritoneal attachments of the right colon starting from the cecum using the LigaSure along the white line of Toldt. We proceeded with this dissection from the cecum all the way to the hepatic flexure. I then proceeded to continue to mobilize the hepatic flexure by dividing the hepatic colic ligaments with the LigaSure. Proceeded to continue with this dissection distally. I the proximal transverse from the attached omentum for continued mobilization. I continued with this dissection all the way to just past the midline. I continued to also separate the right colon along its retroperitoneum with the LigaSure until was able to reflect this medially all the way to expose the duodenum. The duodenum was clearly seen and this was the limit of our medial dissection I continued to mobilize the cecum and the terminal ileum by dividing the rest of its ligamentous attachments on the sidewall using the LigaSure. I was able to reflect the entire right colon medially and I felt that we had adequate mobilization. I could also feel the polyp the cecum I desufflated. The patient was leveled. I removed the GelPort and pulled up the terminal ileum, right colon and hepatic flexure out into the field. It however appeared that the proximal transverse colon was still tethered to the omentum. We therefore brought back to the right colon into the peritoneal cavity. I replaced the port and had to separate rest of the more distal transverse colon from the at attached omentum. This was again achieved with the LigaSure. Once I felt that we were way past the midline and that we had good mobilization, I then removed the GelPort again. This time were able to have a longer length of adverse colon in that we were able to pull out into the field. I chose my point of transection in the terminal ileum about 12 cm from the ileocecal valve. A mesenteric defect was created. I transected terminal ileum at this level using the CRISTHIAN 60 mm stapler I chose my point of dissection in the hepatic flexure as well by a mesenteric window. I divided this area with a CRISTHIAN 60 mm stapler. I then proceeded to divide the mesentery attachments, alternating from proximal and distal towards the ileocolic pedicle. I made sure that we were including adequate lymphatic basin for lymph node assessment. I then thinned out the ileocolic pedicle. I also made sure that we were going to do a high ligation of this pedicle. Applied a right angle clamp and divided the pedicle above this. The entire specimen was therefore sent for immediate gross. I doubly ligated the pedicle with the Polysorb 2 0 tie. This was hemostatic I then proceeded to position the divided limbs aligned this for a [id number]-vh-fwny anastomosis. I cleared up some of the appendices epiploicae a from the remaining proximal transverse colon in preparation for the anastomosis. I opened up the staple line on each apex to enter the lumen. I positioned each arm of the CRISTHIAN 60 mm stapler on the anti mesenteric border. I locked this tapers in place and made sure that there was no bowel loops trapped within the staple line. Once it appeared that we had a good staple line, I proceeded to fire this to create our [id number]-[id number]-kiyd anastomosis. I completed the anastomosis by closing the enterotomy with a TA 60 mm stapler. I examined the staple line. This appeared patent and I could feel a good anastomosis between my thumb and index finger The entire staple line appeared hemostatic. There was no evidence of any leak. Both limbs appeared viable and nonischemic. We observed this for about a minute. We then proceeded to apply a seromuscular Dexon 3-0 stitch at the crotch of the staple line to relieve the staple line of any tension I irrigated the staple line. I brought this back into the peritoneal cavity I replaced all the ports and the GelPort. I examined the abdominal cavity laparoscopically. There was no evidence of any bowel injury or any bleeding. We irrigated the right gutter a bit to clear this of clots and blood Once hemostasis was ensured I proceeded to position the omentum to overlie the anastomosis. Again this appeared viable. I then proceeded to desufflate through the port sites. I removed the GelPort, the Allan wound retractor as well as both ports. I closed the fascia with running Maxon 1 stitch. Skin closure was achieved on all incisions using skin aliza. All incisions were infiltrated with Marcaine 0.5% for postop analgesia. The procedure was then completed. The patient tolerated procedure well. There were no complications noted. Initial and final counts of sponges and instruments were correct. Estimated blood loss was about 50 cc. The patient was extubated without difficulty in the operating room and transferred to the recovery room with stable vital signs. Colon Resection Tumor location: Right colon Extent of lymphovascular resection Right colon (cecum and ascending colon): from the distal ileum to include the cecum, right colon, hepatic flexure General Surg. - Synoptic Notes Colon Resection Tumor location: Right colon Extent of Lymphovascular Resection: Right colon (cecum and ascending colon): from the distal ileum to include the cecum, right colon, hepatic flexure
[2021-02-26] MEDS: HYDROmorphone HCl 0.5 MG/0.5 ML SYRINGE IVPUSH ×3 (10:36→10:54)
[2021-02-26] MEDS: fentaNYL citrate/PF 100 MCG/2 ML VIAL 50 MCG IVPUSH ×2 (11:01→11:21)
--- NOTE | 2021-02-26 11:07 | P.BOP_ITS ---
Brief Operative Note Date of Service: 02/26/21 Pre-op diagnosis: cecal polyp with intramucosal adenocarcinoma Post-op diagnosis: same Procedure: KRYSTIAN right colectomy Surgeon: XIOMARA HERNANDEZ MD Anesthesia: GETA Was an Aviation Support Equipment Repairer used for this Procedure?: Yes Aviation Support Equipment Repairer: Ruba Zelaya Estimated blood loss (mL): 50 Urine output (mL): 200 Pathology: other (CECUM) Condition: stable Disposition: PACU
[2021-02-26] MEDS: Lactated Ringers 1,000 ML 80 ML IVCONT (13:08)
[2021-02-26] MEDS: 0.9 % Sodium Chloride Flush 3 ML SYRINGE IVFLUSH (13:12)
[2021-02-26] MEDS: Morphine Sulfate 2 MG/ML CARTRIDGE 4 MG IVPUSH ×2 (15:55→20:55)
[2021-02-26] MEDS: ondansetron HCL 4 MG/2 ML VIAL IVPUSH (15:55)
--- NOTE | 2021-02-26 18:38 | PM.EVENT ---
Event Note Date of Service: 02/26/21 Event Note: Seen postop Underwent right colon resection earlier Some pain on incisions Feels a little gassy Abdomen soft Good urine output Stable vital signs Pain management Out of bed to chair Explained plan to patient at bedside as well
[2021-02-27] VITALS (8 sets, daily range): BP systolic 124–159; BP diastolic 68–98; PULSE 66–79; RESP 16–18; TEMP 36.1–37.7; O2SAT 95–99
[2021-02-27] MEDS: Morphine Sulfate 2 MG/ML CARTRIDGE 4 MG IVPUSH ×2 (00:51→05:33)
[2021-02-27] MEDS: Lactated Ringers 1,000 ML 80 ML IVCONT ×2 (02:25→15:03)
[2021-02-27 06:08] LABS: MANUAL DIFF FLAG NO
[2021-02-27 06:15] LABS: Basophils Percent Auto 0.2 % (0-2); Eosinophils Percent Auto 0.3 % (0-4); Hematocrit 38.9 % (42-52); Hemoglobin 13.5 g/dl (14.0-18.0); Imm Gran Abs Auto 0.05 X10*3/uL (0.00-0.03); Imm Gran Pct Auto 0.5 % (0.0-0.4); Lymphocytes Absolute Auto 1.1 X10*3/uL (1.2-4.9); Lymphocytes Percent Auto 10.9 % (20-40); Mean Corpuscular HGB Conc 34.7 g/dl (31.0-36.0); Mean Corpuscular Hemoglobin 31.9 pg (27.0-33.0); Mean Platelet Volume 9.6 fL (9.4-12.4); Monocytes Absolute Auto 1.1 X10*3/uL (0.1-1.2); Monocytes Percent Auto 10.6 % (2-11); Neutrophils Percent Auto 77.5 % (45-73); Platelet Count 276 X10*3/uL (160-400); Red Blood Count 4.23 X10*6/uL (4.60-5.80); Red Cell Distribution Width 12.6 % (11.0-16.0); White Blood Count 10.3 X10*3/uL (4.8-10.8)
[2021-02-27 06:43] LABS: Anion Gap 13 (12-20); Blood Urea Nitrogen 11 mg/dL (9-16); Calcium 8.9 mg/dL (8.4-10.2); Carbon Dioxide 27 mmol/L (22-29); Chloride 102 mmol/L (96-108); Creatinine Clr Calc Pharmacy 75.9; Estimated Glomerular Filt Rate > 60; Glucose Random 110 mg/dL (60-115); Potassium 4.5 mmol/L (3.3-5.1); Sodium 137 mmol/L (135-145)
[2021-02-27] MEDS: 0.9 % Sodium Chloride Flush 3 ML SYRINGE IVFLUSH (08:22)
--- NOTE | 2021-02-27 09:47 | MHC.CM.PN ---
met with pt who is independent cm interventio n is not expected to bve needed pt has own transportation home
--- NOTE | 2021-02-27 10:33 | P.PNGS_ITS ---
Subjective Subjective Date of Service: 02/27/21 Interval history: He states he feels well this morning Some incisional pain but well controlled Denies flatus Small catheter was removed last night, able to void freely Physical Exam Vital Signs: Vital Signs: Last Vital Signs Temp 99.3 F 02/27/21 08:00 Pulse 66 02/27/21 08:00 Resp 18 02/27/21 08:00 BP 148/94 H 02/27/21 08:00 Pulse Ox 96 02/27/21 08:00 Body Mass Index 26.1 Const: Other: Chemistry 02/27/21 05:39 Sodium 137 Potassium 4.5 Carbon Dioxide 27 BUN 11 Creatinine 1.06 Calcium 8.9 D Hematology 02/27/21 05:39 WBC 10.3 Hgb 13.5 L Plt Count 276 General: comfortable and no acute distress Resp: Effort & Inspection: normal respiratory effort Cardio: Rate: regular rate GI: Other: Soft, dressings dry, no guarding or rebound Procedures Date of Service Date of Service: 02/27/21 Progress Note: A&P Assessment and plan (1) Mass of cecum: Status: Acute Assessment and Plan: Status post right colon resection Doing well Labs okay Abdomen soft Encouraged to get out of bed and ambulate Pain control Await return of GI function Fall Risk Details Current Medications: Current Medications Diphenhydramine HCl (Diphenhydramine Hcl 50 Mg/Ml Vial) 25 mg IVPUSH Q6H PRN PRN Reason: Itching Heparin Sodium (Porcine) (Heparin Sodium,Porcine 5,000 Unit/Ml Vial) 5,000 unit SUBCUT Q8H JEFFREY Acetaminophen (Ofirmev) 1,000 mg in 100 mls @ 400 mls/hr IV Q6H PRN PRN Reason: Pain, Severe (Pain Scale 7-10) Lactated Ringer's (Lr) 1,000 mls @ 80 mls/hr IVCONT .[id number] [facility] Last Infusion: 02/27/21 02:26 Dose: 80 mls/hr Documented by: Morphine Sulfate (Morphine Sulfate 4 Mg/Ml Cartridge) 4 mg IVPUSH Q4H PRN; Protocol PRN Reason: Pain, Severe (Pain Scale 7-10) Ondansetron HCl (Ondansetron Hcl 4 Mg/2 Ml Vial) 4 mg IVPUSH Q8H PRN PRN Reason: Nausea and Vomiting Last Admin: 02/26/21 15:55 Dose: 4 mg Documented by: Oxycodone HCl (Oxycodone Hcl Immed Release 5 Mg Tablet) 5 mg PO Q4H PRN PRN Reason: Pain, Moderate (Pain Scale 4-6 Oxycodone HCl (Oxycodone Hcl Immed Release 5 Mg Tablet) 10 mg PO Q4H PRN PRN Reason: Pain, Severe (Pain Scale 7-10) Sodium Chloride (0.9 % Sodium Chloride Flush 3 Ml Syringe) [facility] Last Admin: 02/27/21 08:22 Dose: 3 ml Documented by: Sodium Chloride (0.9 % Sodium Chloride Flush 3 Ml Syringe) [facility] Last Admin: 02/27/21 08:23 Dose: Not Given Documented by: Zolpidem Tartrate (Zolpidem Tartrate 5 Mg Tablet) 5 mg PO BEDTIME PRN PRN Reason: Insomnia Time Spent With Patient Time: Total time spent is greater than 50% in coordination of care (as documented) at patient's floor/unit and/or counseling patient: Time with patient: 15 - 24 minutes Quality Stroke Does the patient have a stroke diagnosis?: No VTE Prior VTE?: No VTE Risk Level:: Surgical - moderate VTE Device Contraindication: N/A - Device Ordered VTE Drug Contraindication: N/A - Med Ordered
[2021-02-27] MEDS: Morphine Sulfate 4 MG/ML CARTRIDGE IVPUSH ×3 (10:49→20:52)
[2021-02-27] MEDS: Heparin Sodium,Porcine 5,000 UNIT/ML VIAL 5000 UNIT SUBCUT ×2 (11:08→20:15)
--- NOTE | 2021-02-27 13:23 | HO.POSTANES ---
Post Anesthesia Evaluation Post Anesthesia Evaluation Vital Signs: Vital Signs Temp Pulse Resp BP Pulse Ox 02/27/21 11:32 99.9 F 70 18 153/98 H 97 02/27/21 08:00 99.3 F 66 18 148/94 H 96 02/27/21 07:47 99 F 69 18 140/96 H 97 02/27/21 03:55 98.8 F 72 18 124/79 96 Anesthesia: General Endotracheal-GETA Mental Status: Awake Pain Control: Satisfactory Nausea/Vomiting: None Hydration: Adequate Anesthesia-Related Issues: No Anes. Related Issues
[2021-02-28] VITALS: BP 147/92; PULSE 66; RESP 17; TEMP 36.1; O2SAT 98
[2021-02-28] MEDS: Morphine Sulfate 4 MG/ML CARTRIDGE IVPUSH ×4 (01:18→22:25)
[2021-02-28 03:33] VITALS: BP 160/91; PULSE 71; RESP 16; TEMP 36.2; O2SAT 98
[2021-02-28] MEDS: Heparin Sodium,Porcine 5,000 UNIT/ML VIAL 5000 UNIT SUBCUT ×3 (03:34→19:47)
[2021-02-28] MEDS: Lactated Ringers 1,000 ML 80 ML IVCONT ×2 (03:37→18:23)
[2021-02-28] MEDS: diphenhydrAMINE HCL 50 MG/ML VIAL 25 MG IVPUSH (05:19)
[2021-02-28 07:59] VITALS: BP 160/98; PULSE 65; RESP 16; TEMP 37.2; O2SAT 94
--- NOTE | 2021-02-28 11:01 | PM.PNGS ---
Subjective Subjective Date of Service: 02/28/21 Interval history: Feels ?great? Says he has passed small amounts of flatus Has been ambulating down the hallway States he has good pain control Voiding freely Physical Exam Vital Signs: Vital Signs: Last Vital Signs Temp 98.9 F 02/28/21 07:59 Pulse 65 02/28/21 07:59 Resp 16 02/28/21 07:59 BP 160/98 H 02/28/21 07:59 Pulse Ox 94 02/28/21 07:59 Body Mass Index 26.1 Const: General: comfortable and no acute distress Resp: Effort & Inspection: normal respiratory effort Cardio: Rate: regular rate GI: Other: Soft, a little distended, no guarding rebound, dressings clean and dry Procedures Date of Service Date of Service: 02/28/21 Progress Note: A&P Assessment and plan (1) Mass of cecum: Status: Acute Assessment and Plan: Status post right colectomy Doing well Says he has passed small amounts of flatus Likely advance diet later Abdomen soft and benign Pain management Fall Risk Details Current Medications: Current Medications Diphenhydramine HCl (Diphenhydramine Hcl 50 Mg/Ml Vial) 25 mg IVPUSH Q6H PRN PRN Reason: Itching Last Admin: 02/28/21 05:19 Dose: 25 mg Documented by: Heparin Sodium (Porcine) (Heparin Sodium,Porcine 5,000 Unit/Ml Vial) 5,000 unit SUBCUT Q8H [facility] Last Admin: 02/28/21 03:34 Dose: 5,000 unit Documented by: Acetaminophen (Ofirmev) 1,000 mg in 100 mls @ 400 mls/hr IV Q6H PRN PRN Reason: Pain, Severe (Pain Scale 7-10) Last Infusion: 02/28/21 06:15 Dose: Infused Documented by: Lactated Ringer's (Lr) 1,000 mls @ 80 mls/hr IVCONT .[id number] [facility] Last Admin: 02/28/21 03:37 Dose: 80 mls/hr Documented by: Morphine Sulfate (Morphine Sulfate 4 Mg/Ml Cartridge) 4 mg IVPUSH Q4H PRN; Protocol PRN Reason: Pain, Severe (Pain Scale 7-10) Last Admin: 02/28/21 01:18 Dose: 4 mg Documented by: Ondansetron HCl (Ondansetron Hcl 4 Mg/2 Ml Vial) 4 mg IVPUSH Q8H PRN PRN Reason: Nausea and Vomiting Last Admin: 02/26/21 15:55 Dose: 4 mg Documented by: Oxycodone HCl (Oxycodone Hcl Immed Release 5 Mg Tablet) 5 mg PO Q4H PRN PRN Reason: Pain, Moderate (Pain Scale 4-6 Oxycodone HCl (Oxycodone Hcl Immed Release 5 Mg Tablet) 10 mg PO Q4H PRN PRN Reason: Pain, Severe (Pain Scale 7-10) Sodium Chloride (0.9 % Sodium Chloride Flush 3 Ml Syringe) 3 ml IVFLUSH [facility] Last Admin: 02/28/21 07:55 Dose: Not Given Documented by: Sodium Chloride (0.9 % Sodium Chloride Flush 3 Ml Syringe) 3 ml IVFLUSH [facility] Last Admin: 02/28/21 07:55 Dose: Not Given Documented by: Zolpidem Tartrate (Zolpidem Tartrate 5 Mg Tablet) 5 mg PO BEDTIME PRN PRN Reason: Insomnia Time Spent With Patient Time: Total time spent is greater than 50% in coordination of care (as documented) at patient's floor/unit and/or counseling patient: Time with patient: 15 - 24 minutes Quality Stroke Does the patient have a stroke diagnosis?: No VTE Prior VTE?: No VTE Risk Level:: Surgical - moderate VTE Device Contraindication: N/A - Device Ordered VTE Drug Contraindication: N/A - Med Ordered
[2021-02-28 15:22] VITALS: BP 134/94; PULSE 90; RESP 16; TEMP 36.6; O2SAT 98
--- NOTE | 2021-02-28 23:25 | PC.NURSE ---
PT VERY UNCOMFORTABLE hiccupping constantly spitting , abdomen distended SPOKE WITH DR Bernstein ORDER Receved for NG TUBE placement .to low suction .tube placed , chest x-ray ordered to verify placement . drainage dark brown. pt states feels little better will monitor
[2021-02-28 23:46] VITALS: BP 137/91; PULSE 96; RESP 16; TEMP 36.2; O2SAT 95
[2021-03-01] MEDS: Morphine Sulfate 4 MG/ML CARTRIDGE IVPUSH ×5 (02:49→22:14)
[2021-03-01] MEDS: Heparin Sodium,Porcine 5,000 UNIT/ML VIAL 5000 UNIT SUBCUT ×3 (02:49→20:36)
[2021-03-01] MEDS: Lactated Ringers 1,000 ML 80 ML IVCONT ×2 (06:16→20:37)
[2021-03-01] MEDS: oxyCODONE HCl Immed Release 5 MG TABLET 10 MG PO ×2 (07:23→12:01)
[2021-03-01 07:40] VITALS: BP 159/99; PULSE 86; RESP 18; TEMP 36.4; O2SAT 96
--- NOTE | 2021-03-01 08:23 | PM.PNGS ---
Subjective Subjective Date of Service: 03/01/21 Interval history: Had a lot of hiccuping and distension last night NG-tube placed Patient says he has much more comfortable now Says he says since he has passed small amounts of flatus Physical Exam Vital Signs: Vital Signs: Last Vital Signs Temp 97.5 F 03/01/21 07:40 Pulse 86 03/01/21 07:40 Resp 18 03/01/21 07:40 BP 159/99 H 03/01/21 07:40 Pulse Ox 96 03/01/21 07:40 Body Mass Index 26.1 Const: Other: Looks comfortable General: comfortable and no acute distress Resp: Effort & Inspection: normal respiratory effort Cardio: Rate: regular rate GI: Other: Distended but soft, no guarding or rebound, dressings dry Procedures Date of Service Date of Service: 03/01/21 Progress Note: A&P Assessment and plan (1) Mass of cecum: Status: Acute Assessment and Plan: Status post right colon resection Clinical postop ileus Keep NG tube in; x-rays seen Exam benign Instructed patient to get out of bed and ambulate more Looks well otherwise Fall Risk Details Current Medications: Current Medications Diphenhydramine HCl (Diphenhydramine Hcl 50 Mg/Ml Vial) 25 mg IVPUSH Q6H PRN PRN Reason: Itching Last Admin: 02/28/21 05:19 Dose: 25 mg Documented by: Heparin Sodium (Porcine) (Heparin Sodium,Porcine 5,000 Unit/Ml Vial) 5,000 unit SUBCUT Q8H [facility] Last Admin: 03/01/21 02:49 Dose: 5,000 unit Documented by: Acetaminophen (Ofirmev) 1,000 mg in 100 mls @ 400 mls/hr IV Q6H PRN PRN Reason: Pain, Severe (Pain Scale 7-10) Last Infusion: 02/28/21 06:15 Dose: Infused Documented by: Lactated Ringer's (Lr) 1,000 mls @ 80 mls/hr IVCONT .[id number] [facility] Last Admin: 03/01/21 06:16 Dose: 80 mls/hr Documented by: Morphine Sulfate (Morphine Sulfate 4 Mg/Ml Cartridge) 4 mg IVPUSH Q4H PRN; Protocol PRN Reason: Pain, Severe (Pain Scale 7-10) Last Admin: 03/01/21 06:07 Dose: 4 mg Documented by: Ondansetron HCl (Ondansetron Hcl 4 Mg/2 Ml Vial) 4 mg IVPUSH Q8H PRN PRN Reason: Nausea and Vomiting Last Admin: 02/26/21 15:55 Dose: 4 mg Documented by: Oxycodone HCl (Oxycodone Hcl Immed Release 5 Mg Tablet) 5 mg PO Q4H PRN PRN Reason: Pain, Moderate (Pain Scale 4-6 Oxycodone HCl (Oxycodone Hcl Immed Release 5 Mg Tablet) 10 mg PO Q4H PRN PRN Reason: Pain, Severe (Pain Scale 7-10) Last Admin: 03/01/21 07:23 Dose: 10 mg Documented by: Sodium Chloride (0.9 % Sodium Chloride Flush 3 Ml Syringe) 3 ml IVFLUSH [facility] Last Admin: 03/01/21 07:40 Dose: Not Given Documented by: Sodium Chloride (0.9 % Sodium Chloride Flush 3 Ml Syringe) 3 ml IVFLUSH [facility] Last Admin: 03/01/21 07:40 Dose: Not Given Documented by: Zolpidem Tartrate (Zolpidem Tartrate 5 Mg Tablet) 5 mg PO BEDTIME PRN PRN Reason: Insomnia Time Spent With Patient Time: Total time spent is greater than 50% in coordination of care (as documented) at patient's floor/unit and/or counseling patient: Time with patient: 15 - 24 minutes Quality Stroke Does the patient have a stroke diagnosis?: No VTE Prior VTE?: No VTE Risk Level:: Surgical - moderate VTE Device Contraindication: N/A - Device Ordered VTE Drug Contraindication: N/A - Med Ordered
--- NOTE | 2021-03-01 09:23 | MHC.CM.PN ---
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 ng-tube in place. 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
--- NOTE | 2021-03-01 13:25 | PC.NURSE ---
Skin assessment completed. Patient has 2 surgical incision with C/D/I bandages. No other skin issues noted at this time.
[2021-03-01 15:13] VITALS: BP 159/105; PULSE 88; RESP 18; TEMP 36.2; O2SAT 95
--- NOTE | 2021-03-01 15:53 | PM.EVENT ---
Event Note Date of Service: 03/01/21 Event Note: He denies significant pain Says that he thinks he may have passed small amounts of flatus He looks comfortable Stable vital signs Abdomen soft although some distension Incision clean and dry No guarding rebound NG tube in place Encourage out of bed and ambulation Hopefully we can pull out NG tube tomorrow He understands the plan
[2021-03-01 23:36] VITALS: BP 129/91; PULSE 80; RESP 17; TEMP 36.8; O2SAT 95
[2021-03-02 02:30] VITALS: RESP 18
[2021-03-02] MEDS: Morphine Sulfate 4 MG/ML CARTRIDGE IVPUSH ×3 (02:30→17:00)
[2021-03-02] MEDS: Heparin Sodium,Porcine 5,000 UNIT/ML VIAL 5000 UNIT SUBCUT ×3 (02:35→20:37)
[2021-03-02 03:41] VITALS: RESP 18
[2021-03-02 07:09] VITALS: BP 140/83; PULSE 75; RESP 18; TEMP 36.8; O2SAT 95
--- NOTE | 2021-03-02 08:06 | P.PNGS_ITS ---
Subjective Subjective Date of Service: 03/02/21 <Ruba Zelaya PA-C - Last Filed: 03/02/21 08:15> 03/02/21 <Celso Bernstein MD - Last Filed: 03/02/21 16:08> Interval history: Feels better this morning, some pain but improved and all at incision site. Denies nausea. Passing more flatus. Feels less bloated. NGT bothering throat. <Ruba Zelaya PA-C - Last Filed: 03/02/21 08:15> Physical Exam Vital Signs: Vital Signs: Last Vital Signs Temp 98.3 F 03/02/21 07:09 Pulse 75 03/02/21 07:09 Resp 18 03/02/21 07:09 BP 140/83 H 03/02/21 07:09 Pulse Ox 95 03/02/21 07:09 Body Mass Index 26.1 <Ruba Zelaya PA-C - Last Filed: 03/02/21 08:15> Const: General: comfortable, no acute distress and alert <Ruba Zelaya PA-C - Last Filed: 03/02/21 08:15> Orientation/consciousness: patient oriented x3 <Ruba Zelaya PA-C - Last Filed: 03/02/21 08:15> Resp: Effort & Inspection: normal respiratory effort <Ruba Zelaya PA-C - Last Filed: 03/02/21 08:15> GI: Inspection: Yes distended and Yes incision (clean) <Ruba Zelaya PA-C - Last Filed: 03/02/21 08:15> Palpation (GI): Soft to palpation and Tenderness to palpation present (GI) (mild incisional) <Ruba Zelaya PA-C - Last Filed: 03/02/21 08:15> Percussion: Yes tympanic to percussion <COURTNEY Lopez Last Filed: 03/02/21 08:15> Skin: General skin exam: no rashes or lesions noted <COURTNEY Lopez Last Filed: 03/02/21 08:15> Neuro: General: patient oriented x3 <COURTNEY Lopez Last File d: 03/02/21 08:15> Extrem: General: Yes no clubbing, cyanosis or edema <Ruba Zelaya PA-C - Last Filed: 03/02/21 08:15> Procedures Date of Service Date of Service: 03/02/21 <Ruba Zelaya PA-C - Last Filed: 03/02/21 08:15> Progress Note: A&P Assessment and plan (1) Mass of cecum: Status: Acute <Ruba Zelaya PA-C - Last Filed: 03/02/21 08:15> Assessment and Plan: Says he has been passing small amounts of flatus Denies significant abdominal pain Complaints of pain on the throat from the NG tube Says he feels well Abdomen soft, mildly distended Seen and examined-agree with CORAL Zelaya <eClso Bernstein MD - Last Filed: 03/02/21 16:08> (2) S/P right colectomy: Status: Acute <Ruba Zelaya PA-C - Last Filed: 03/02/21 08:15> Assessment and Plan: 60 year old male POD #4 s/p KRYSTIAN right colectomy for cecal polyp with intramucosal adenocarcinoma. He was doing well post op but developed abd distention requiring NGT inserti for post op ileus. He reports passing more flatus yesterday. His NGT output has been scanty and he has no nausea, vomiting but he does remain distended. Will trial clamping NGT for 4 hrs, check residual. Unclamp sooner if develops worsening abd pain, N/V, distention. Encouraged ambulation of halls today. Patient comfortable with plan. Pathology- pending. <Ruba Zelaya PA-C - Last Filed: 03/02/21 08:15> Fall Risk Details Current Medications: Current Medications Diphenhydramine HCl (Diphenhydramine Hcl 50 Mg/Ml Vial) 25 mg IVPUSH Q6H PRN PRN Reason: Itching Last Admin: 02/28/21 05:19 Dose: 25 mg Documented by: Heparin Sodium (Porcine) (Heparin Sodium,Porcine 5,000 Unit/Ml Vial) 5,000 unit SUBCUT Q8H [facility] Last Admin: 03/02/21 02:35 Dose: 5,000 unit Documented by: Lactated Ringer's (Lr) 1,000 mls @ 80 mls/hr IVCONT .[id number] [facility] Last Admin: 03/01/21 20:37 Dose: 80 mls/hr Documented by: Morphine Sulfate (Morphine Sulfate 4 Mg/Ml Cartridge) 4 mg IVPUSH Q4H PRN; Protocol PRN Reason: Pain, Severe (Pain Scale 7-10) Last Admin: 03/02/21 02:30 Dose: 4 mg Documented by: Ondansetron HCl (Ondansetron Hcl 4 Mg/2 Ml Vial) 4 mg IVPUSH Q8H PRN PRN Reason: Nausea and Vomiting Last Admin: 02/26/21 15:55 Dose: 4 mg Documented by: Oxycodone HCl (Oxycodone Hcl Immed Release 5 Mg Tablet) 5 mg PO Q4H PRN PRN Reason: Pain, Moderate (Pain Scale 4-6 Oxycodone HCl (Oxycodone Hcl Immed Release 5 Mg Tablet) 10 mg PO Q4H PRN PRN Reason: Pain, Severe (Pain Scale 7-10) Last Admin: 03/01/21 12:01 Dose: 10 mg Documented by: Sodium Chloride (0.9 % Sodium Chloride Flush 3 Ml Syringe) 3 ml IVFLUSH [facility] Last Admin: 03/02/21 00:36 Dose: Not Given Documented by: Sodium Chloride (0.9 % Sodium Chloride Flush 3 Ml Syringe) 3 ml IVFLUSH [facility] Last Admin: 03/02/21 00:36 Dose: Not Given Documented by: Zolpidem Tartrate (Zolpidem Tartrate 5 Mg Tablet) 5 mg PO BEDTIME PRN PRN Reason: Insomnia <Ruba Zelaya PA-C - Last Filed: 03/02/21 08:15> Time Spent With Patient Time: Total time spent is greater than 50% in coordination of care (as documented) at patient's floor/unit and/or counseling patient: <Ruba Zelaya PA-C - Last Filed: 03/02/21 08:15> Time with patient: 15 - 24 minutes <Ruba Zelaya PA-C - Last Filed: 03/02/21 08:15> Quality Stroke Does the patient have a stroke diagnosis?: No <Ruba Zelaya PA-C - Last Filed: 03/02/21 08:15> VTE Prior VTE?: No <Ruba Zelaya PA-C - Last Filed: 03/02/21 08:15> VTE Risk Level:: Surgical - moderate <Ruba Zelaya PA-C - Last Filed: 03/02/21 08:15> VTE Device Contraindication: N/A - Device Ordered <Ruba Zelaya PA-C - Last Filed: 03/02/21 08:15> VTE Drug Contraindication: N/A - Med Ordered <Ruba Zelaya PA-C - Last Filed: 03/02/21 08:15>
[2021-03-02] MEDS: Lactated Ringers 1,000 ML 80 ML IVCONT ×2 (08:16→20:38)
[2021-03-02] MEDS: oxyCODONE HCl Immed Release 5 MG TABLET 10 MG PO ×2 (11:58→22:44)
[2021-03-02 16:00] VITALS: BP 140/79; PULSE 82; RESP 18; TEMP 37; O2SAT 94
--- NOTE | 2021-03-02 16:08 | PM.EVENT ---
Event Note Date of Service: 03/02/21 Event Note: NG tube has been removed He has been ambulating around the hallways Looks well Abdomen soft although with distension Incision clean Stay on clear liquids He says he still is passing flatus Looks comfortable
[2021-03-02 23:54] VITALS: BP 159/95; PULSE 75; RESP 18; TEMP 37.2; O2SAT 96
[2021-03-02 23:56] VITALS: RESP 18
[2021-03-03] MEDS: Heparin Sodium,Porcine 5,000 UNIT/ML VIAL 5000 UNIT SUBCUT ×3 (04:09→19:44)
[2021-03-03] MEDS: Morphine Sulfate 4 MG/ML CARTRIDGE IVPUSH ×5 (04:17→23:57)
[2021-03-03 05:19] VITALS: RESP 18
[2021-03-03 07:16] VITALS: BP 147/86; PULSE 77; RESP 16; TEMP 36.9; O2SAT 92
--- NOTE | 2021-03-03 07:35 | PM.PNGS ---
Subjective Subjective Date of Service: 03/03/21 <Ruba Zelaya PA-C - Last Filed: 03/03/21 07:38> 03/03/21 <Celso Bernstein MD - Last Filed: 03/03/21 08:33> Interval history: NGT removed yesterday and started on sips of liquids. Was able to ambulate a lot yesterday, had some incisional pain following but improved with medication. Passing more flatus, no BM. Feels much better this morning. <Ruba Zelaya PA-C - Last Filed: 03/03/21 07:38> Physical Exam Vital Signs: Vital Signs: Last Vital Signs Temp 98.4 F 03/03/21 07:16 Pulse 77 03/03/21 07:16 Resp 16 03/03/21 07:16 BP 147/86 H 03/03/21 07:16 Pulse Ox 92 03/03/21 07:16 Body Mass Index 26.1 <Ruba Zelaya PA-C - Last Filed: 03/03/21 07:38> Const: Orientation/consciousness: patient oriented x3 <Ruba Zelaya PA-C - Last Filed: 03/03/21 07:38> Resp: Effort & Inspection: normal respiratory effort <COURTNEY Lopez Last Filed: 03/03/21 07:38> GI: Inspection: Yes distended and Yes incision (clean, mild ecchymosis midline ) <Ruba Zelaya PA-C - Last Filed: 03/03/21 07:38> Palpation (GI): Soft to palpation, Tenderness to palpation present (GI) (mild, incisional) and no guarding <Ruba Zelaya PA-C - Last Filed: 03/03/21 07:38> Percussion: Yes tympanic to percussion (decreasing) <COURTNEY Lopez Last Filed: 03/03/21 07:38> Skin: General skin exam: no rashes or lesions noted <COURTNEY Lopez Last Filed: 03/03/21 07:38> Neuro: General: patient oriented x3 <COURTNEY Lopez Last Filed: 03/03/21 07:38> Procedures Date of Service Date of Service: 03/03/21 <Ruba Zelaya PA-C - Last Filed: 03/03/21 07:38> Progress Note: A&P Assessment and plan (1) S/P right colectomy: Status: Acute <Ruba Zelaya PA-C - Last Filed: 03/03/21 07:38> Assessment and Plan: NG tube removed yesterday Still distended but passing flatus Clear liquids Abdomen remained soft, no guarding rebound, minimal tenderness Denies significant pain Has been ambulating Await full return of GI function Looks well otherwise Seen and examined - agree with CORAL Zelaya Path report seen Oncology consult <Celso Bernstein MD - Last Filed: 03/03/21 08:33> (2) Mass of cecum: Status: Acute <Ruba Zelaya PA-C - Last Filed: 03/03/21 07:38> Assessment and Plan: 60 year old male POD #5 s/p KRYSTIAN right colectomy for cecal polyp with intramucosal adenocarcinoma. He was doing well post op but developed abd distention requiring NGT insertion for post op ileus. Removed yesterday after trial clamping. He reports passing more flatus. Will advance to clear liquids and then further as tolerated. Encouraged continued ambulation of halls today. Add colace, miralax for bowel regimen. Patient comfortable with plan. Colon, right, hemicolectomy: - Adenocarcinoma, moderately differentiated, invasive into subserosa; margins negative. - 19 lymph nodes negative for metastatic carcinoma. - AJCC Stage (8th ed.)? pT3 N0 - Tubular adenomata with low grade dysplasia, incidental. - Vermiform appendix within normal limits. <Ruba Zelaya PA-C - Last Filed: 03/03/21 07:38> Fall Risk Details Current Medications: Current Medications Diphenhydramine HCl (Diphenhydramine Hcl 50 Mg/Ml Vial) 25 mg IVPUSH Q6H PRN PRN Reason: Itching Last Admin: 02/28/21 05:19 Dose: 25 mg Documented by: Heparin Sodium (Porcine) (Heparin Sodium,Porcine 5,000 Unit/Ml Vial) 5,000 unit SUBCUT Q8H [facility] Last Admin: 03/03/21 04:09 Dose: 5,000 unit Documented by: Lactated Ringer's (Lr) 1,000 mls @ 80 mls/hr IVCONT .[id number] [facility] Last Admin: 03/02/21 20:38 Dose: 80 mls/hr Documented by: Morphine Sulfate (Morphine Sulfate 4 Mg/Ml Cartridge) 4 mg IVPUSH Q4H PRN; Protocol PRN Reason: Pain, Severe (Pain Scale 7-10) Last Admin: 03/03/21 04:17 Dose: 4 mg Documented by: Ondansetron HCl (Ondansetron Hcl 4 Mg/2 Ml Vial) 4 mg IVPUSH Q8H PRN PRN Reason: Nausea and Vomiting Last Admin: 02/26/21 15:55 Dose: 4 mg Documented by: Oxycodone HCl (Oxycodone Hcl Immed Release 5 Mg Tablet) 5 mg PO Q4H PRN PRN Reason: Pain, Moderate (Pain Scale 4-6 Oxycodone HCl (Oxycodone Hcl Immed Release 5 Mg Tablet) 10 mg PO Q4H PRN PRN Reason: Pain, Severe (Pain Scale 7-10) Last Admin: 03/02/21 22:44 Dose: 10 mg Documented by: Sodium Chloride (0.9 % Sodium Chloride Flush 3 Ml Syringe) 3 ml IVFLUSH [facility] Last Admin: 03/02/21 23:56 Dose: Not Given Documented by: Sodium Chloride (0.9 % Sodium Chloride Flush 3 Ml Syringe) 3 ml IVFLUSH [facility] Last Admin: 03/02/21 23:56 Dose: Not Given Documented by: Zolpidem Tartrate (Zolpidem Tartrate 5 Mg Tablet) 5 mg PO BEDTIME PRN PRN Reason: Insomnia <Ruba Zelaya PA-C - Last Filed: 03/03/21 07:38> Time Spent With Patient Time: Total time spent is greater than 50% in coordination of care (as documented) at patient's floor/unit and/or counseling patient: <Ruba Zelaya PA-C - Last Filed: 03/03/21 07:38> Time with patient: 15 - 24 minutes <Ruba Zelaya PA-C - Last Filed: 03/03/21 07:38> Quality Stroke Does the patient have a stroke diagnosis?: No <Ruba Zelaya PA-C - Last Filed: 03/03/21 07:38> VTE Prior VTE?: No <Ruba Zelaya PA-C - Last Filed: 03/03/21 07:38> VTE Risk Level:: Surgical - moderate <Ruba Zelaya PA-C - Last Filed: 03/03/21 07:38> VTE Device Contraindication: N/A - Device Ordered <Ruba Zelaya PA-C - Last Filed: 03/03/21 07:38> VTE Drug Contraindication: N/A - Med Ordered <Ruba Zelaya PA-C - Last Filed: 03/03/21 07:38>
[2021-03-03] MEDS: Lactated Ringers 1,000 ML 80 ML IVCONT ×2 (08:31→19:45)
[2021-03-03] MEDS: Docusate Sodium 100 MG CAPSULE PO ×2 (08:32→19:44)
[2021-03-03] MEDS: polyethylene glycoL 3350 17 GM POWD.PACK PO (08:32)
[2021-03-03] MEDS: 0.9 % Sodium Chloride Flush 3 ML SYRINGE IVFLUSH ×2 (08:35→19:45)
[2021-03-03] MEDS: oxyCODONE HCl Immed Release 5 MG TABLET 10 MG PO (10:54)
[2021-03-03 15:11] VITALS: BP 151/88; PULSE 62; RESP 18; TEMP 36.3; O2SAT 98
--- NOTE | 2021-03-03 15:27 | PM.EVENT ---
Event Note Date of Service: 03/03/21 Event Note: Remains distended Comfortable however No significant abdominal pain Says he is ambulating Stable vital signs Abdominal exam otherwise benign Encouraged to ambulate some Advance diet slowly hopefully tomorrow He says he continues to pass flatus
[2021-03-03 23:02] VITALS: BP 159/95; PULSE 68; RESP 18; TEMP 36.1; O2SAT 96
[2021-03-04] MEDS: Morphine Sulfate 4 MG/ML CARTRIDGE IVPUSH (04:19)
[2021-03-04] MEDS: Heparin Sodium,Porcine 5,000 UNIT/ML VIAL 5000 UNIT SUBCUT ×3 (04:19→19:41)
--- NOTE | 2021-03-04 06:29 | PC.NURSE ---
Last night patient was oozing sero-sanguanous drainage from his umbilicus. Hoagland remain intact. Dressing applied and covered with and. This am a dime size area was noted on dressing. Dr Ang Munoz notified. Pt doing well ambulating frequently in ortiz. Pt reported passing gas and states distension in abdomen is better. Pts pain addressed with Morphine - see JUN. Will continue to monitor.
[2021-03-04 07:46] VITALS: BP 153/92; PULSE 66; RESP 18; TEMP 36.5; O2SAT 97
--- NOTE | 2021-03-04 08:19 | PM.PNGS ---
Subjective Subjective Date of Service: 03/04/21 <Ruba Zelaya PA-C - Last Filed: 03/04/21 08:25> 03/04/21 <Celso Bernstein MD - Last Filed: 03/04/21 08:35> Interval history: Had some bloating with clear liquids yesterday. Has only been having water since. Feels better this morning. Passing more flatus but continues to belch. Has been ambulating the halls regularly. <Ruba Zelaya PA-C - Last Filed: 03/04/21 08:25> Physical Exam Vital Signs: Vital Signs: Last Vital Signs Temp 97.7 F 03/04/21 07:46 Pulse 66 03/04/21 07:46 Resp 18 03/04/21 07:46 BP 153/92 H 03/04/21 07:46 Pulse Ox 97 03/04/21 07:46 Body Mass Index 26.1 <Ruba Zelaya PA-C - Last Filed: 03/04/21 08:25> Const: Orientation/consciousness: patient oriented x3 <Ruba Zelaya PA-C - Last Filed: 03/04/21 08:25> Resp: Effort & Inspection: normal respiratory effort <COURTNEY Lopez Last Filed: 03/04/21 08:25> GI: Inspection: Yes distended and Yes incision (some erythema at distal aspect) <Ruba Zelaya PA-C - Last Filed: 03/04/21 08:25> Palpation (GI): Soft to palpation, Tenderness to palpation present (GI) (mild, incisional) and no guarding <Ruba Zelaya PA-C - Last Filed: 03/04/21 08:25> Percussion: Yes tympanic to percussion (decreasing) <COURTNEY Lopez Last Filed: 03/04/21 08:25> Skin: General skin exam: no rashes or lesions noted <COURTNEY Lopez Last Filed: 03/04/21 08:25> Neuro: General: patient oriented x3 <COURTNEY Lopez Last Filed: 03/04/21 08:25> Extrem: General: Yes no clubbing, cyanosis or edema <Ruba Zelaya PA-C - Last Filed: 03/04/21 08:25> Procedures Date of Service Date of Service: 03/04/21 <Ruba Zelaya PA-C - Last Filed: 03/04/21 08:25> Progress Note: A&P Assessment and plan (1) S/P right colectomy: Status: Acute <Ruba Zelaya PA-C - Last Filed: 03/04/21 08:25> Assessment and Plan: still having bloating and distension no nausea or vomitting passing flatus however c/w postop ileus some thick serosanguinous drainage near the umbilicus - probed with qtip; no pus dressings replaced OOB, ambulate keep on clears for now abd soft pt looks well, comfortable, denies pain/tenderness seen and examined independently <Celso Bernstein MD - Last Filed: 03/04/21 08:35> (2) Mass of cecum: Status: Acute <Ruba Zelaya PA-C - Last Filed: 03/04/21 08:25> Assessment and Plan: 60 year old male POD #6 s/p KRYSTIAN right colectomy for cecal polyp with intramucosal adenocarcinoma. He was doing well post op but developed abd distention requiring NGT insertion for post op ileus. NGT has since been removed and started on clear liquids. Some increasing distention yesterday with clear liquids. Feels better this morning, passing more frequent flatus but continues to belch. VSS. Abd- soft, small amount of erythema at distal aspect of incision- will remove a couple aliza later today for ?seroma/hematoma. Continue clear liquids for now. Encouraged continued ambulation of halls today. Repeat BMP. Patient comfortable with plan. <Ruba Zelaya PA-C - Last Filed: 03/04/21 08:25> Fall Risk Details Current Medications: Current Medications Diphenhydramine HCl (Diphenhydramine Hcl 50 Mg/Ml Vial) 25 mg IVPUSH Q6H PRN PRN Reason: Itching Last Admin: 02/28/21 05:19 Dose: 25 mg Documented by: Docusate Sodium (Docusate Sodium 100 Mg Capsule) 100 mg PO BID [facility] Last Admin: 03/03/21 19:44 Dose: 100 mg Documented by: Heparin Sodium (Porcine) (Heparin Sodium,Porcine 5,000 Unit/Ml Vial) 5,000 unit SUBCUT Q8H [facility] Last Admin: 03/04/21 04:19 Dose: 5,000 unit Documented by: Lactated Ringer's (Lr) 1,000 mls @ 80 mls/hr IVCONT .[id number] [facility] Last Admin: 03/03/21 19:45 Dose: 80 mls/hr Documented by: Ondansetron HCl (Ondansetron Hcl 4 Mg/2 Ml Vial) 4 mg IVPUSH Q8H PRN PRN Reason: Nausea and Vomiting Last Admin: 02/26/21 15:55 Dose: 4 mg Documented by: Polyethylene Glycol (Polyethylene Glycol 3350 17 Gm Powd.Pack) 17 gm PO DAILY [facility] Last Admin: 03/03/21 08:32 Dose: 17 gm Documented by: Sodium Chloride (0.9 % Sodium Chloride Flush 3 Ml Syringe) 3 ml IVFLUSH [facility] Last Admin: 03/03/21 19:45 Dose: 3 ml Documented by: Sodium Chloride (0.9 % Sodium Chloride Flush 3 Ml Syringe) 3 ml IVFLUSH [facility] Last Admin: 03/04/21 00:35 Dose: Not Given Documented by: <Ruba Zelaya PA-C - Last Filed: 03/04/21 08:25> Time Spent With Patient Time: Total time spent is greater than 50% in coordination of care (as documented) at patient's floor/unit and/or counseling patient: <Ruba Zelaya PA-C - Last Filed: 03/04/21 08:25> Time with patient: 15 - 24 minutes <Ruba Zelaya PA-C - Last Filed: 03/04/21 08:25> Quality Stroke Does the patient have a stroke diagnosis?: No <Ruba Zelaya PA-C - Last Filed: 03/04/21 08:25> VTE Prior VTE?: No <Ruba Zelaya PA-C - Last Filed: 03/04/21 08:25> VTE Risk Level:: Surgical - moderate <Ruba Zelaya PA-C - Last Filed: 03/04/21 08:25> VTE Device Contraindication: N/A - Device Ordered <Ruba Zelaya PA-C - Last Filed: 03/04/21 08:25> VTE Drug Contraindication: N/A - Med Ordered <Ruba Zelaya PA-C - Last Filed: 03/04/21 08:25>
[2021-03-04] MEDS: polyethylene glycoL 3350 17 GM POWD.PACK PO (09:59)
[2021-03-04] MEDS: Docusate Sodium 100 MG CAPSULE PO ×2 (09:59→19:40)
[2021-03-04] MEDS: Lactated Ringers 1,000 ML 80 ML IVCONT (09:59)
--- NOTE | 2021-03-04 14:10 | MHC.CM.PN ---
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
[2021-03-04 16:00] VITALS: BP 149/89; PULSE 59; RESP 18; TEMP 36; O2SAT 99
--- NOTE | 2021-03-04 16:46 | PM.EVENT ---
Event Note Date of Service: 03/04/21 Event Note: Patient says he feels bloated but has been passing flatus Denies any pain States he has ambulated already Says he is comfortable Tolerating clear liquids Will keep on clear liquids until abdominal distension improves some more Has a very benign exam Stable vital signs Looks well
[2021-03-04] MEDS: oxyCODONE HCl Immed Release 5 MG TABLET PO (19:40)
[2021-03-04 22:52] VITALS: BP 157/99; PULSE 96; RESP 16; TEMP 36.2; O2SAT 97
[2021-03-05] MEDS: 0.9 % Sodium Chloride Flush 3 ML SYRINGE IVFLUSH ×3 (00:13→08:48)
[2021-03-05] MEDS: Heparin Sodium,Porcine 5,000 UNIT/ML VIAL 5000 UNIT SUBCUT ×2 (03:32→11:24)
[2021-03-05] MEDS: Morphine Sulfate 4 MG/ML CARTRIDGE IVPUSH (03:37)
[2021-03-05 08:00] VITALS: BP 154/99; PULSE 74; RESP 18; TEMP 36.3; O2SAT 96
--- NOTE | 2021-03-05 08:21 | P.PNGS_ITS ---
Subjective Subjective Date of Service: 03/05/21 <Ruba Zelaya PA-C - Last Filed: 03/05/21 08:25> 03/05/21 <Celso Bernstein MD - Last Filed: 03/05/21 23:08> Interval history: Had a large bowel movement this morning. Feels much better afterwards. Tolerating clear liquids and would like to eat solid food. OOB and ambulating halls. <Ruba Zelaya PA-C - Last Filed: 03/05/21 08:25> Physical Exam Vital Signs: Vital Signs: Last Vital Signs Temp 97.3 F 03/05/21 08:00 Pulse 74 03/05/21 08:00 Resp 18 03/05/21 08:00 BP 154/99 H 03/05/21 08:00 Pulse Ox 96 03/05/21 08:00 Body Mass Index 26.1 <COURTNEY Lopez Last Filed: 03/05/21 08:25> Const: General: comfortable, no acute distress and alert <Ruba Zelaya PA-C - Last Filed: 03/05/21 08:25> Orientation/consciousness: patient oriented x3 <COURTNEY Lopez Last Filed: 03/05/21 08:25> Eyes: Sclerae: sclerae normal <COURTNEY Lopez Last Filed: 03/05/21 08:25> Resp: Effort & Inspection: normal respiratory effort <Ruba Zelaya PA-C - Last Filed: 03/05/21 08:25> GI: Inspection: Yes distended (improving) and Yes incision (clean, erythema at distal apsect almost resolved) <COURTNEY Lopez Last Filed: 03/05/21 08:25> Palpation (GI): Soft to palpation (more soft this am), Tenderness to palpation present (GI) (mild, incisional) and no guarding <COURTNEY Lopez Last Filed: 03/05/21 08:25> Percussion: Yes normal to percussion <COURTNEY Lopez Last Filed: 03/05/21 08:25> Skin: General skin exam: no rashes or lesions noted <Ruba Zelaya PA-C - Last Filed: 03/05/21 08:25> Neuro: General: patient oriented x3 <Ruba Zelaya PA-C - Last Filed: 03/05/21 08:25> Procedures Date of Service Date of Service: 03/05/21 <COURTNEY Lopez Last Filed: 03/05/21 08:25> Progress Note: A&P Assessment and plan (1) S/P right colectomy: Status: Acute <Ruba Zelaya PA-C - Last Filed: 03/05/21 08:25> Assessment and Plan: tolerating diet has BM, flatus abd much softer, less distended looks well has been ambulating wants to go home ok to dc home explained path report [facility] Onc consult as outpt dc instructions explained seen and examined independently <Celso Bernstein MD - Last Filed: 03/05/21 23:08> (2) Mass of cecum: Status: Acute <Ruba Zelaya PA-C - Last Filed: 03/05/21 08:25> Assessment and Plan: 60 year old male POD #7 s/p KRYSTIAN right colectomy for cecal polyp with intramucosal adenocarcinoma. He was doing well post op but developed abd distention requiring NGT insertion for post op ileus. NGT has since been removed and started on clear liquids. Patient now has full return of GI function. Had large BM, continues to pass flatus. VSS. Abd- soft, the small amount of erythema at distal aspect of incision resolved following staple removal yesterday- serosanguineous fluid released consistent with seroma. Will advance to low residue diet. Home later today if not tomorrow if tolerating diet. Patient comfortable with plan. <Ruba Zelaya PA-C - Last Filed: 03/05/21 08:25> Fall Risk Details Current Medications: Current Medications Diphenhydramine HCl (Diphenhydramine Hcl 50 Mg/Ml Vial) 25 mg IVPUSH Q6H PRN PRN Reason: Itching Last Admin: 02/28/21 05:19 Dose: 25 mg Documented by: Docusate Sodium (Docusate Sodium 100 Mg Capsule) 100 mg PO BID JEFFREY Last Admin: 03/04/21 19:40 Dose: 100 mg Documented by: Heparin Sodium (Porcine) (Heparin Sodium,Porcine 5,000 Unit/Ml Vial) 5,000 unit SUBCUT Q8H [facility] Last Admin: 03/05/21 03:32 Dose: 5,000 unit Documented by: Morphine Sulfate (Morphine Sulfate 4 Mg/Ml Cartridge) 4 mg IVPUSH Q4H PRN; Protocol PRN Reason: Pain, Severe (Pain Scale 7-10) Last Admin: 03/05/21 03:37 Dose: 4 mg Documented by: Ondansetron HCl (Ondansetron Hcl 4 Mg/2 Ml Vial) 4 mg IVPUSH Q8H PRN PRN Reason: Nausea and Vomiting Last Admin: 02/26/21 15:55 Dose: 4 mg Documented by: Oxycodone HCl (Oxycodone Hcl Immed Release 5 Mg Tablet) 5 mg PO Q4H PRN PRN Reason: Pain, Moderate (Pain Scale 4-6 Last Admin: 03/04/21 19:40 Dose: 5 mg Documented by: Polyethylene Glycol (Polyethylene Glycol 3350 17 Gm Powd.Pack) 17 gm PO DAILY [facility] Last Admin: 03/04/21 09:59 Dose: 17 gm Documented by: Sodium Chloride (0.9 % Sodium Chloride Flush 3 Ml Syringe) 3 ml IVFLUSH [facility] Last Admin: 03/05/21 00:13 Dose: 3 ml Documented by: Sodium Chloride (0.9 % Sodium Chloride Flush 3 Ml Syringe) 3 ml IVFLUSH [facility] Last Admin: 03/05/21 00:14 Dose: 3 ml Documented by: <Ruba Zelaya PA-C - Last Filed: 03/05/21 08:25> Time Spent With Patient Time: Total time spent is greater than 50% in coordination of care (as documented) at patient's floor/unit and/or counseling patient: <Ruba Zelaya PA-C - Last Filed: 03/05/21 08:25> Time with patient: 15 - 24 minutes <Ruba Zelaya PA-C - Last Filed: 03/05/21 08:25> Quality Stroke Does the patient have a stroke diagnosis?: No <Ruba Zelaya PA-C - Last Filed: 03/05/21 08:25> VTE Prior VTE?: No <Ruba Zelaya PA-C - Last Filed: 03/05/21 08:25> VTE Risk Level:: Surgical - moderate <Ruba Zelaya PA-C - Last Filed: 03/05/21 08:25> VTE Device Contraindication: N/A - Device Ordered <COURTNEY Lopez Last Filed: 03/05/21 08:25> VTE Drug Contraindication: N/A - Med Ordered <Ruba Zelaya PA-C - Last Filed: 03/05/21 08:25>
[2021-03-05] MEDS: Docusate Sodium 100 MG CAPSULE PO (08:45)
[2021-03-05] MEDS: polyethylene glycoL 3350 17 GM POWD.PACK PO (08:46)
--- NOTE | 2021-03-05 13:14 | MHC.CM.PN ---
PLAN IS TO DC HOME TODAY - NO SERVICES. RN AWARE OF PLAN
--- NOTE | 2021-03-09 13:27 | P.DS_ITS ---
DS: Providers Provider Date of Service: 03/05/21 Date of admission: 02/26/21 08:00 Primary care physician: Chloe Henry MD Attending physician on admission: Celso Bernstein DS: Diagnosis Discharge Diagnosis (1) S/P right colectomy: Status: Acute (2) Mass of cecum: Status: Acute DS: Summary Hospital Course Hospital Course: BRIEF HPI: The patient is a 60-year-old male who had previously undergone colonoscopy about 2 years ago noted to have a cecal polyp.? At that time, this was unresectable endoscopically because of the flat nature.? I had scheduled him for right colon resection but he canceled. He had another colonoscopy December 2020 and again this cecal polyp was seen.? Biopsies of these revealed an intramucosal adenocarcinoma.? I had a discussion with him about proceeding with the resection.? He eventually consented.? He now presents for the procedure. HOSPITAL COURSE: On 02/26/21, a KRYSTIAN right colectomy was performed by Dr. Bernstein without complication. The patient tolerated the procedure well, completed routine recovery in PACU and was admitted to the medical/surgical floor for observation. He had a slow recovery course complicated by a post operative ileus. He was doi ng very well post operatively initially. His shah catheter was removed. He was tolerating a clear liquid diet without N/V and his pain was controlled on PRN analgesics. He was ambulating without difficulty. He began passing flatus on POD #2. On POD #3, he developed abdominal distention and hiccuping and an NGT was inserted. AXR was performed which was consistent with a post op ileus. He was ambulated multiple times daily to facilitate GI function. After two days, the NGT had scanty output. He began to pass more flatus and was less distended on exam. His NGT was clamped and removed 4 hours later after his residual was low and he remained asymptomatic. The following day he was advanced to clear liquids. He however reported some distention following clear liquids and he was continued on these for a couple days. He eventually began to tolerate the liquids without symptoms and was advanced to a solid diet. He was reassessed later that day and was tolerating solids without nausea, vomiting or worsening abdominal pain. His incisional pain was tolerable on PO analgesics. He felt ready for discharge. He was discharged to home on 03/05/21 in stable condition. He is to follow up with Dr. Bernstein in office in a week. His pathology revealed adenocarcinoma, moderately differentiated, invasive into subserosa with margins negative. He is to follow up with oncology as outpatient. The patient also developed some incisional erythema at the inferior aspect during the stay. A staple was removed and the subq was gently probed with a qtip releasing a small amount of serosanguineous drainage consistent with a seroma. The erythema resolved following. Status at Discharge Functional status at discharge: independent ambulation Overall status at discharge: patient is progressing back to baseline Time Spent with Patient Time attestation: Total time spent providing and/or coordinating discharge services: Discharge coordination time: Greater than 30 minutes Quality: Stroke Does the patient have a stroke diagnosis?: No Physical Exam Vital Signs: Vital Signs: Last Vital Signs Temp 97.3 F 03/05/21 08:00 Pulse 74 03/05/21 08:00 Resp 18 03/05/21 08:00 BP 154/99 H 03/05/21 08:00 Pulse Ox 96 03/05/21 08:00 Body Mass Index 26.1 Const: General: comfortable, no acute distress and alert Orientation/consciousness: patient oriented x3 Resp: Effort & Inspection: normal respiratory effort GI: Inspection: Yes distended (softly, decreasing) and Yes incision (clean) Palpation (GI): Soft to palpation and Tenderness to palpation present (GI) (mild, incisional) Percussion: Yes tympanic to percussion (decreasing) Skin: General skin exam: no rashes or lesions noted Neuro: General: patient oriented x3 Extrem: General: Yes no clubbing, cyanosis or edema DS: Data Data Completed and Pending Completed studies during hospitalization [Text1]: Colon, right, hemicolectomy: - Adenocarcinoma, moderately differentiated, invasive into subserosa; margins negative. - 19 lymph nodes negative for metastatic carcinoma. - AJCC Stage (8th ed.) pT3 N0 - Tubular adenomata with low grade dysplasia, incidental. - Vermiform appendix within normal limits. Discharge Plan Discharge Patient Disposition: Home, Self-Care Discharge Diagnosis: cecal polyp, s/p KRYSTIAN right colectomy Referrals: Celso Bernstein MD [Physician] - 03/11/21 Chloe Austin MD [Primary Care Provider] - 1 Week Discharge Medications: New ibuprofen 600 mg tablet 600 mg PO TID PRN (Reason: pain) Qty: 30 RF: 0 oxycodone-acetaminophen [Percocet] 5-325 mg tablet 1 tab PO Q4-6H PRN (Reason: pain) Qty: 20 RF: 0 Continued cyclobenzaprine 10 mg tablet 10 mg PO BEDTIME PRN (Reason: Muscle Spasm) 90 Days Qty: 90 RF: 1 Discharge Orders: Discharge Order (Routine); Ordered 03/05/21 Ordered By: Celso Bernstein Diet: other Activity on Discharge: No heavy lifting Stand Alone Forms: Patient Portal Discharge page Activity Restrictions/Additional Instructions: If the incision area is tender, you may apply an ice pack for short intervals (No more than 20 minutes on, followed by at least 20 minutes off). Do not apply heat. Do not use creams, lotions, or topical antibiotics unless instructed to do so by your surgeon. These can cause infection or allergic reaction. Ok to shower. You have aliza closing your incision and these will be removed approximately 10-14 days after surgery. NO HEAVY LIFTING (>10lbs). Follow up in office. ([phone]) Call Your Doctor If: -Your temperature exceeds 101.5? F -You experience excessive pain or swelling -You have an unexpected reaction to medication -You have excessive bleeding -You experience continued vomiting/nausea -Your incision begins to separate -Your incision shows signs of infection such as increased redness, swelling, excessive pain, drainage (light blood or clear fluid is normal) or heat Care Plan Goals: Return to baseline health and gradual return to activity following recovery period. Health Concerns: Cecal polyp, s/p KRYSTIAN right colectomy Plan of Treatment: Discharge to home, f/u in office Assessment: Doing well post op. Discharge Date/Time: 03/05/21 15:51
== END 2021-03-05 15:51 | disposition home or self-care (01) | DRG 231 ==
LOC: HO.SSSA 08:07 → HO.S3 11:06
PROVIDERS: Nurse Practitioner; Physician Assistant Surgical; Admitting Provider Surgery; PCP Internal Medicine; Visit Provider Surgery
PROC: 0DBK0ZZ Excision of Ascending Colon, Open Approach (ICD-10-PCS; principal; 2021-02-26 08:00)
DX: C18.9 Malignant neoplasm of colon, unspecified (principal); K56.7 Ileus, unspecified; Z88.5 Allergy status to narcotic agent; Z79.899 Other long term (current) drug therapy
CPT/HCPCS: 36415; 71045; 80048; 80053; 83036; 85025; 85027; 85610; 86850; 86900; 86901; 87635; 88309; 88329; 93005; 99024; J0131; J1100; J1170; J1200; J2250; J2270; J2405; J3010

== ENCOUNTER → 2021-03-11 09:46 | Outpatient (BNVA) | payer OTHER, SELFPAY | PROVIDERS: PCP Internal Medicine; Referring Provider Internal Medicine; Visit Provider Surgery | DX: Z48.3 Aftercare following surgery for neoplasm (principal); C18.9 Malignant neoplasm of colon, unspecified | CPT/HCPCS: 99212 ==

== ENCOUNTER → 2021-03-15 12:50 | Outpatient (BNV) | payer OTHER, SELFPAY | PROVIDERS: PCP Internal Medicine; Referring Provider Internal Medicine; Visit Provider Internal Medicine | DX: Z85.038 Personal history of other malignant neoplasm of large intestine (principal); Z86.010 Personal history of colon polyps | CPT/HCPCS: 99203; 99212; 99213; 99214; G2211 ==

== ENCOUNTER → 2021-03-29 14:48 | Outpatient (BNVA) | payer OTHER, SELFPAY | PROVIDERS: PCP Internal Medicine; Referring Provider Internal Medicine; Visit Provider Surgery | DX: C18.9 Malignant neoplasm of colon, unspecified (principal) | CPT/HCPCS: 99212 ==

== ENCOUNTER → 2021-04-28 10:06 | Outpatient (BNVA) | payer OTHER, SELFPAY | PROVIDERS: PCP Internal Medicine; Referring Provider Internal Medicine; Visit Provider Surgery | DX: Z48.3 Aftercare following surgery for neoplasm (principal); C18.9 Malignant neoplasm of colon, unspecified | CPT/HCPCS: 99212 ==

== ENCOUNTER 2021-08-02 06:26 | Outpatient (REF) | payer OTHER, SELFPAY ==
--- NOTE | ~2021-08-02 | CT_ITS ---
EXAMINATION: CT ABDOMEN AND PELVIS WITH CONTRAST CLINICAL INFORMATION: Colon cancer surveillance COMPARISON: 12/22/2020 TECHNIQUE: Multidetector volumetric images were obtained from the superior aspect of the liver through the pubic symphysis following administration 85 mL of Omnipaque 350 intravenous contrast. Sagittal and coronal reformatted images were obtained on the technologist's workstation. Oral contrast: Yes This CT examination was performed using dose optimization techniques as appropriate, variously including the following: *Automated exposure control *Adjustment of mA and/or kV according to patient size (this includes techniques or standardized protocols for targeted exams where dose is matched to indication/reason for exam; i.e. extremities or head) *Use of iterative reconstruction technique DLP: 390 mGy-cm FINDINGS: LUNG BASES: The visualized lung bases are unremarkable. LIVER, GALLBLADDER, AND BILIARY TREE: The liver is normal in size, shape, and attenuation. No focal hepatic lesion or biliary ductal dilatation is present. The gallbladder is unremarkable with no evidence of radiopaque gallstones, gallbladder wall thickening, or obvious pericholecystic inflammatory changes. PANCREAS: Unremarkable. SPLEEN: Unremarkable. ADRENAL GLANDS: Unremarkable. KIDNEYS AND URETERS: The kidneys are normal in size, shape, and attenuation. No hydronephrosis, hydroureter, or calculi seen. No perinephric stranding. BLADDER: Unremarkable. GASTROINTESTINAL TRACT: The stomach is unremarkable. Normal caliber of the small bowel. No obstruction. Previous area of anterior cecal wall thickening is no longer visualized. Moderate colonic stool burden. Diverticulosis at the distal descending and sigmoid colon. No diverticulitis. There is no wall thickening. ABDOMINAL WALL: No significant hernia is appreciated. LYMPH NODES: Normal. VASCULAR: Unremarkable. PELVIC VISCERA: The prostate and seminal vesicles are unremarkable. OSSEOUS STRUCTURES: No acute or suspicious osseous abnormality. Moderate degenerative changes of the lumbar spine. CT/CT abdomen pelvis w con IMPRESSION: No suspicious findings. No colonic wall thickening seen on this study. No lymphadenopathy. No suspicious liver lesion. Fleischner guidelines were followed.
[2021-08-02] MEDS: iohexoL 350 MG/ML 100 ML INFUS..BTL IV (08:38)
[2021-08-02] MEDS: Barium Sulfate Oral (Vanilla) 450 ML ORAL.SUSP 900 ML PO (08:39)
== END 2021-08-02 06:27 | disposition home or self-care (01) ==
LOC: HO.CT 06:26
PROVIDERS: Visit Provider Internal Medicine
DX: C18.9 Malignant neoplasm of colon, unspecified (principal)
CPT/HCPCS: 74177; Q9967

== ENCOUNTER → 2021-08-20 09:03 | Outpatient (BNVA) | payer OTHER, SELFPAY | PROVIDERS: PCP Internal Medicine; Referring Provider Internal Medicine; Visit Provider Nurse Practitioner | DX: C18.9 Malignant neoplasm of colon, unspecified (principal); K75.81 Nonalcoholic steatohepatitis (NASH); R25.2 Cramp and spasm; R35.89 Other polyuria | CPT/HCPCS: 99212 ==

== ENCOUNTER 2021-09-16 07:02 | Outpatient (REF) | payer OTHER, SELFPAY ==
[2021-09-16 08:07] LABS: Appearance Urine HAZY; Color Urine YELLOW; Glucose Urine UA NEG (NEG); Leukocyte Esterase Urine NEG (NEG); Nitrite Urine NEG (NEG); Specific Gravity - Urine >= 1.030 (1.005-1.025); Urine Blood NEG (NEG); Urine Ketones NEG (NEG); Urine Protein NEG (NEG-TRACE)
[2021-09-16 08:36] LABS: Estimated Average Glucose 105 mg/dL; Hemoglobin A1c % 5.3 %
[2021-09-16 08:42] LABS: Magnesium 2.2 mg/dL (1.6-2.6)
[2021-09-16 09:06] LABS: Ferritin 109 ng/mL (20-250); Vitamin D 25-OH Total 19.4 ng/mL (>30)
== END 2021-09-16 07:03 | disposition home or self-care (01) ==
LOC: HO.LAB 07:02
PROVIDERS: PCP Internal Medicine; Visit Provider Nurse Practitioner
DX: Z13.9 Encounter for screening, unspecified (principal); R25.2 Cramp and spasm; R35.89 Other polyuria; R82.90 Unspecified abnormal findings in urine
CPT/HCPCS: 36415; 81003; 82306; 82728; 83036; 83735

== ENCOUNTER → 2021-09-17 08:19 | Outpatient (BNVA) | payer OTHER, SELFPAY | PROVIDERS: PCP Internal Medicine; Referring Provider Internal Medicine; Visit Provider Nurse Practitioner | DX: R25.2 Cramp and spasm (principal); R35.89 Other polyuria; C18.9 Malignant neoplasm of colon, unspecified | CPT/HCPCS: 99212 ==

== ENCOUNTER → 2021-12-06 13:58 | Outpatient (BNVA) | payer OTHER, SELFPAY | PROVIDERS: PCP Internal Medicine; Visit Provider Surgery | DX: Z85.038 Personal history of other malignant neoplasm of large intestine (principal) | CPT/HCPCS: 99212 ==

== ENCOUNTER 2022-06-24 13:16 | Outpatient (REF) | payer OTHER, SELFPAY ==
--- NOTE | ~2022-06-24 | US_ITS ---
EXAMINATION: US ABDOMEN LIMITED CLINICAL INFORMATION: Umbilical hernia without obstruction or gangrene. COMPARISON: CT abdomen and pelvis with contrast dated 08/02/2021. Ultrasound abdomen limited dated 11/04/2020. KUB dated 05/07/2015. TECHNIQUE: Real-time imaging of the area of concern per patient left of umbilicus. FINDINGS: There is a tiny periumbilical hernia seen with a fascial defect of 0.7 cm. With Valsalva, this increases and small bit of bowel was appreciated by the technologist at the time of the exam although I see no images that definitely support this US/US abdomen limited IMPRESSION: Tiny periumbilical hernia. If further characterization is needed, would recommend CT scan.
--- NOTE | 2022-06-24 13:22 | ECG_ITS ---
Test Reason : HYPERKALEMIA Blood Pressure : / mmHG Vent. Rate : 077 BPM Atrial Rate : 077 BPM P-R Int : 170 ms QRS Dur : 098 ms QT Int : 364 ms P-R-T Axes : 077 -28 045 degrees QTc Int : 411 ms Sinus rhythm with sinus arrhythmia with occasional Premature ventricular complexes Otherwise normal ECG When compared with ECG of 17-FEB-2021 12:52, No significant changes seen Referred By: Chloe Henry Electronically Signed By:MIKAL FOWLER
[2022-06-24 15:40] LABS: Alanine Aminotransferase 33 U/L (0-40); Albumin Level 4.6 g/dL (3.5-5.0); Alkaline Phosphatase 83 U/L (39-117); Anion Gap 12 (12-20); Aspartate Amino Transferase 23 U/L (5-37); Bilirubin Total 0.7 mg/dL (0.0-1.0); Blood Urea Nitrogen 18 mg/dL (9-16); Calcium 9.4 mg/dL (8.4-10.2); Carbon Dioxide 26 mmol/L (22-29); Chloride 107 mmol/L (96-108); Cholesterol 231 mg/dL; Estimated Glomerular Filt Rate > 60; Glucose Fasting 107 mg/dL (60-99); HDL Cholesterol 69 mg/dL; LDL Cholesterol Calculated 143 mg/dl; Magnesium 1.9 mg/dL (1.6-2.6); Potassium 4.9 mmol/L (3.3-5.1); Sodium 140 mmol/L (135-145); Triglycerides 98 mg/dL
== END 2022-06-24 13:17 | disposition home or self-care (01) ==
LOC: HO.US 13:16
PROVIDERS: PCP Internal Medicine; Visit Provider Internal Medicine
DX: Z00.00 Encounter for general adult medical examination without abnormal findings (principal); R25.2 Cramp and spasm; K42.9 Umbilical hernia without obstruction or gangrene; E87.5 Hyperkalemia; E78.5 Hyperlipidemia, unspecified
CPT/HCPCS: 36415; 76705; 80053; 80061; 83735; 93005

== ENCOUNTER 2022-07-22 12:57 | Emergency (ER) | payer OTHER, SELFPAY ==
--- NOTE | ~2022-07-22 | CT_ITS ---
EXAMINATION: CT HEAD WITHOUT CONTRAST CLINICAL INFORMATION: Headache, blurry vision. COMPARISON: None available. TECHNIQUE: Contiguous axial imaging was performed from the skull base to vertex without intravenous administration of contrast. Coronal and sagittal reformatted images were obtained. This CT examination was performed using dose optimization techniques as appropriate, variously including the following: *Automated exposure control *Adjustment of mA and/or kV according to patient size (this includes techniques or standardized protocols for targeted exams where dose is matched to indication/reason for exam; i.e. extremities or head) *Use of iterative reconstruction technique DLP: 659 mGy-cm FINDINGS: The cortical sulci are normal. The lateral ventricles are symmetrical. The third and fourth ventricles are in their normal midline position. The basilar and prepontine cisterns are unremarkable. There is no acute intra or extracerebral abnormality. There is no mass effect or midline shift. Sections through the bony calvarium are unremarkable. The paranasal sinuses show mild to moderate mucosal thickening in the visualized portions. The bony orbits and orbital contents are unremarkable. Mild anterior nasal septal deviation, apex the left. CT/CT head/brain wo IV con IMPRESSION: No acute intracranial pathology.
[2022-07-22 13:23] VITALS: BP 151/94; PULSE 69; RESP 16; TEMP 36.4; O2SAT 98; BMI 27.4
--- NOTE | 2022-07-22 13:23 | ED_ITS ---
HPI - General Adult General Chief complaint: Chest Pain <CORAL Andrew - Last Filed: 07/22/22 13:25> Stated complaint: high BP <CORAL Andrew - Last Filed: 07/22/22 13:25> Time Seen by Provider: 07/22/22 13:39 <CORAL Andrew - Last Filed: 07/22/22 13:25> Source: patient and family (Significant other) <Lety Lacey MD - Last Filed: 07/22/22 17:05> Mode of arrival: ambulatory <Lety Lacey MD - Last Filed: 07/22/22 17:05> History of Present Illness HPI narrative: 62-year-old male who is an everyday alcohol drinker and also frequently consumes ibuprofen presents with concerns regarding high blood pressure and w orsening left eye blurriness though he states that this is been ongoing for 6 years. Patient states that he was evaluated in the [facility] with multiple testings at which time he was informed that they were unable to find any cause for his eye symptoms. He denies any headaches, dizziness, and states that it is like a film over his left eye. He has not been to an [facility] since the evaluations 6 years ago. His reference of blood pressure is in relation to getting together in a group with his family and testing out a blood pressure machine in which he states it read his blood pressure as in the 170s. Patient otherwise denies any speech difficulties or unilateral weakness/num bness/tingling. Patient denies any pain with eye movement. <Lety Lacey MD - Last Filed: 07/22/22 17:05> Related Data Home medications: Previous Rx's Medication Instructions Recorded cyclobenzaprine 10 mg tablet 10 mg PO BEDTIME PRN Muscle Spasm 03/31/22 90 days #90 tabs trazodone 50 mg tablet 50 mg PO BEDTIME PRN sleep 90 days 05/04/22 #90 tabs ibuprofen 600 mg tablet 600 mg PO TID PRN pain 30 days #90 06/14/22 tabs atorvastatin 20 mg tablet 20 mg PO BEDTIME 90 days #90 tabs 06/25/22 <CORAL Andrew - Last Filed: 07/22/22 13:25> Allergies/adverse reactions: Allergies Allergy/AdvReac Type Severity Reaction Status Date / Time tramadol Allergy Intermediate muscle Verified 07/22/22 13:26 cramps <CORAL Andrew - Last Filed: 07/22/22 13:25> Review of Systems Review of Systems: Pertinent positives and negatives as stated in HPI <Lety Lacey MD - Last Filed: 07/22/22 17:05> PMFSH Past Medical History Source: nursing notes reviewed <Lety Lacey MD - Last Filed: 07/22/22 17:05> Medical History: Medical History Back pain Chest pain Colon cancer History of gibbs History of colon cancer Impaired glucose tolerance Mass of cecum Neck pain Numbness and tingling in left hand Transaminitis <CORAL Andrew - Last Filed: 07/22/22 13:25> Surgical History: Surgical History H/O colonoscopy History of bunionectomy History of colectomy History of esophagogastroduodenoscopy (EGD) History of excision of mass History of right inguinal hernia repair History of varicose vein ligation and stripping Hx of hand surgery <CORAL Andrew - Last Filed: 07/22/22 13:25> Family History Family History: Family History Maternal Grandmother History of diabetes mellitus History of hypertension Mother Medical history unknown Father Medical history unknown Son No problems noted. Son No problems noted. Son No problems noted. Daughter No problems noted. <CORAL Andrew - Last Filed: 07/22/22 13:25> Social History Social History: Social History Household Members: Family Housing: House Are you a primary manager critical care to a significant other at home: No Do you presently have visiting nurse or other home services: No Alcohol intake: current Alcohol intake frequency: a few times a week Alcohol type: hard liquor Patient Tobacco Use Status: Never used Tobacco e-Cigarette/Vaping Use: Never Used Second Hand Smoke Exposure: No Substance Use Type: Marijuana Advance Directives: No Advance Directives Information Provided: Yes service: No Current occupational status: unemployed Cognitive needs: No Hearing needs: No Vision needs: No <CORAL Andrew - Last Filed: 07/22/22 13:25> Physical Exam ED Vital Signs: Vital Signs - 24 hr 07/22/22 13:23 Temperature 97.6 F Pulse Rate 69 Respiratory Rate 16 Blood Pressure 151/94 H Pulse Oximetry 98 Oxygen Delivery Method Room Air BMI result Body Mass Index 27.4 <CORAL Andrew - Last Filed: 07/22/22 13:25> Vital Signs - 24 hr 07/22/22 13:23 Temperature 97.6 F Pulse Rate 69 Respiratory Rate 16 Blood Pressure 151/94 H Pulse Oximetry 98 Oxygen Delivery Method Room Air BMI result Body Mass Index 27.4 VITAL SIGNS: Reviewed. GENERAL: Well developed, well nourished, in no acute distress. HEAD: Normocephalic/atraumatic, EYES: PERRLA, EOMI intact without pain, no nystagmus, no conjunctival injection, no palsies IOP: OD-11, OS-14 Visual Acuity: B/L- 20/20; OD-20/20; OS-20/40 LUNGS: Normal breath sounds. No adventitious sounds or accessory muscle use. SpO2<98> CARDIOVASCULAR: Regular rate and rhythm without noted murmurs ABDOMEN: Soft, non-tender, non-distended with bowel sounds. MUSCULOSKELETAL: No tenderness, deformities, or effusions noted on gross inspection. EXTREMITIES: No cyanosis, clubbing or edema. SKIN: Inspection of the skin reveals no rashes NEUROLOGIC: Alert and oriented x 4. Strength and sensation to light touch were grossly intact x 4, no facial asymmetry, no pronator drift, cranial nerves 2-12 are grossly intact. <Lety Lacey MD - Last Filed: 07/22/22 17:05> Course Course Course Narrative: RME-- 62 yo M w/PMHx ROSADO, HLD, c/o HTN at home 140/120's, with assoc LI, CP and L eye blurry vision x4 days. Denies SOB, or taking AC BP 151/94 in triage EKG, labs, HeadC CT ordered <CORAL Andrew - Last Filed: 07/22/22 13:25> Medical Decision Making Medical Decision Making MDM Narrative: 62-year-old male with history and clinical presentation of progressive left eye blurriness that is not new but has become more concerning for the patient given his blood pressure assessment with family members recently. Patient's description of a film over is I seems very consistent with likely cataracts. I reviewed all investigations and there are no findings to suggest acute infarct and story is inconsistent with central etiology. Eye pressures are within normal limits and visual acuity does not show any significant deficit. Patient understands that he needs to follow-up with an [facility]. <Lety Lacey MD - Last Filed: 07/22/22 17:05> Differential Diagnosis Please see the discussion above <Lety Lacey MD - Last Filed: 07/22/22 17:05> Lab Data Please see the discussion above <Lety Lacey MD - Last Filed: 07/22/22 17:05> Result Diagrams: 07/22/22 13:46 07/22/22 13:47 <CORAL Andrew - Last Filed: 07/22/22 13:25> Labs: Lab Results 07/22/22 07/22/22 07/22/22 Range/Units 13:46 13:46 13:47 WBC 6.9 (4.8-10.8) X10*3/uL RBC 5.10 (4.60-5.80) X10*6/uL Hgb 15.5 (14.0-18.0) g/dl Hct 44.6 (42.0-52.0) % MCV 87.5 (80.0-98.0) fL MCH 30.4 (27.0-33.0) pg MCHC 34.8 (31.0-36.0) g/dl RDW 12.6 (11.0-16.0) % Plt Count 247 (160-400) X10*3/uL MPV 9.0 L (9.4-12.4) fL Immature Gran % (Auto) 0.3 (0.0-0.4) % Neut % (Auto) 72.9 (45-73) % Lymph % (Auto) 15.5 L (20-40) % [place] % (Auto) 7.7 (2-11) % Eos % (Auto) 2.6 (0-4) % Baso % (Auto) 1.0 (0-2) % Lymph # (Auto) 1.1 L (1.2-4.9) X10*3/uL [place] # (Auto) 0.5 (0.1-1.2) X10*3/uL Eos # (Auto) 0.2 (0.0-0.4) X10*3/uL Baso # (Auto) 0.1 (0.0-0.2) X10*3/uL Abs Immat Gran (auto) 0.02 (0.00-0.03) X10*3/uL Absolute Neuts (auto) 5.0 (2.0-8.3) x10*3/uL Absolute Nucleated RBC 0.000 (0.0-0.012) X10*3/uL Nucleated RBC % (auto) 0.0 (0.0-0.2) /100WBC Sodium 140 (135-145) mmol/L Potassium 4.7 (3.3-5.1) mmol/L Chloride 104 (96-108) mmol/L Carbon Dioxide 27 (22-29) mmol/L Anion Gap 14 (12-20) BUN 15 (9-16) mg/dL Creatinine 1.18 (0.5-1.4) mg/dL Estim Creat Clear Calc 66.5 Estimated GFR > 60 Random Glucose 104 (60-115) mg/dL Calcium 9.5 (8.4-10.2) mg/dL Magnesium 2.0 (1.6-2.6) mg/dL Total Bilirubin 1.0 (0.0-1.0) mg/dL Direct Bilirubin 0.3 (0.0-0.5) mg/dL AST 35 (5-37) U/L ALT 25 (0-40) U/L Alkaline Phosphatase 104 (39-117) U/L Troponin I High Sens < 3.5 (<3.5-35.0) ng/L Total Protein 7.0 (6.5-8.0) g/dL Albumin 4.8 (3.5-5.0) g/dL <CORAL Andrew - Last Filed: 07/22/22 13:25> Lab Results 07/22/22 07/22/22 07/22/22 Range/Units 13:46 13:46 13:47 WBC 6.9 (4.8-10.8) X10*3/uL RBC 5.10 (4.60-5.80) X10*6/uL Hgb 15.5 (14.0-18.0) g/dl Hct 44.6 (42.0-52.0) % MCV 87.5 (80.0-98.0) fL MCH 30.4 (27.0-33.0) pg MCHC 34.8 (31.0-36.0) g/dl RDW 12.6 (11.0-16.0) % Plt Count 247 (160-400) X10*3/uL MPV 9.0 L (9.4-12.4) fL Immature Gran % (Auto) 0.3 (0.0-0.4) % Neut % (Auto) 72.9 (45-73) % Lymph % (Auto) 15.5 L (20-40) % [place] % (Auto) 7.7 (2-11) % Eos % (Auto) 2.6 (0-4) % Baso % (Auto) 1.0 (0-2) % Lymph # (Auto) 1.1 L (1.2-4.9) X10*3/uL [place] # (Auto) 0.5 (0.1-1.2) X10*3/uL Eos # (Auto) 0.2 (0.0-0.4) X10*3/uL Baso # (Auto) 0.1 (0.0-0.2) X10*3/uL Abs Immat Gran (auto) 0.02 (0.00-0.03) X10*3/uL Absolute Neuts (auto) 5.0 (2.0-8.3) x10*3/uL Absolute Nucleated RBC 0.000 (0.0-0.012) X10*3/uL Nucleated RBC % (auto) 0.0 (0.0-0.2) /100WBC Sodium 140 (135-145) mmol/L Potassium 4.7 (3.3-5.1) mmol/L Chloride 104 (96-108) mmol/L Carbon Dioxide 27 (22-29) mmol/L Anion Gap 14 (12-20) BUN 15 (9-16) mg/dL Creatinine 1.18 (0.5-1.4) mg/dL Estim Creat Clear Calc 66.5 Estimated GFR > 60 Random Glucose 104 (60-115) mg/dL Calcium 9.5 (8.4-10.2) mg/dL Magnesium 2.0 (1.6-2.6) mg/dL Total Bilirubin 1.0 (0.0-1.0) mg/dL Direct Bilirubin 0.3 (0.0-0.5) mg/dL AST 35 (5-37) U/L ALT 25 (0-40) U/L Alkaline Phosphatase 104 (39-117) U/L Troponin I High Sens < 3.5 (<3.5-35.0) ng/L Total Protein 7.0 (6.5-8.0) g/dL Albumin 4.8 (3.5-5.0) g/dL <Lety Lacey MD - Last Filed: 07/22/22 17:05> Radiology Impression Radiologist Impression: My interpretation is in agreement with radiology's impression of the imaging studies. <Lety Lacey MD - Last Filed: 07/22/22 17:05> Discharge Plan Discharge Clinical Impression: Blurred vision, left eye <CORAL Andrew - Last Filed: 07/22/22 13:25> Patient Disposition: Home, Self-Care <CORAL Andrew - Last Filed: 07/22/22 13:25> Instructions: Blurred Vision (ED) <CORAL Andrew - Last Filed: 07/22/22 13:25> Additional Instructions: 1. Please follow-up with Ophthalmology, you have been provided a referral below. Return to the ER for any worsening symptoms. <CORAL Andrew - Last Filed: 07/22/22 13:25> Prescriptions: No Action trazodone 50 mg tablet 50 mg PO BEDTIME PRN (Reason: sleep) 90 Days Qty: 90 0RF ibuprofen 600 mg tablet 600 mg PO TID PRN (Reason: pain) 30 Days Qty: 90 1RF atorvastatin 20 mg tablet 20 mg PO BEDTIME 90 Days Qty: 90 0RF cyclobenzaprine 10 mg tablet 10 mg PO BEDTIME PRN (Reason: Muscle Spasm) 90 Days Qty: 90 1RF <CORAL Andrew - Last Filed: 07/22/22 13:25> Referrals: Chloe Austin MD [Primary Care Provider] - Lucho Moulton [Physician] - (acute on chronic LEF eye blurriness, IOP wnl, visual acuity wnl, CT scan negative. Cataracts?) <CORAL Andrew - Last Filed: 07/22/22 13:25>
--- NOTE | 2022-07-22 13:25 | ECG_ITS ---
Test Reason : hypertension Blood Pressure : / mmHG Vent. Rate : 068 BPM Atrial Rate : 078 BPM P-R Int : 170 ms QRS Dur : 092 ms QT Int : 374 ms P-R-T Axes : 069 -37 015 degrees QTc Int : 397 ms Sinus rhythm with marked sinus arrhythmia with occasional Premature ventricular complexes Left axis deviation Possible Anterior infarct , age undetermined Abnormal ECG When compared with ECG of 24-JUN-2022 13:25, No significant change was found Referred By: La Patel Electronically Signed By:LUCINA BOOKER MD
[2022-07-22 13:50] LABS: MANUAL DIFF FLAG NO
[2022-07-22 14:03] LABS: Basophils Absolute Auto 0.1 X10*3/uL (0.0-0.2); Eosinophils Absolute Auto 0.2 X10*3/uL (0.0-0.4); Eosinophils Percent Auto 2.6 % (0-4); Hematocrit 44.6 % (42.0-52.0); Hemoglobin 15.5 g/dl (14.0-18.0); Imm Gran Abs Auto 0.02 X10*3/uL (0.00-0.03); Imm Gran Pct Auto 0.3 % (0.0-0.4); Lymphocytes Absolute Auto 1.1 X10*3/uL (1.2-4.9); Lymphocytes Percent Auto 15.5 % (20-40); Mean Corpuscular HGB Conc 34.8 g/dl (31.0-36.0); Mean Corpuscular Hemoglobin 30.4 pg (27.0-33.0); Mean Corpuscular Volume 87.5 fL (80.0-98.0); Monocytes Absolute Auto 0.5 X10*3/uL (0.1-1.2); Monocytes Percent Auto 7.7 % (2-11); Neutrophils Percent Auto 72.9 % (45-73); Platelet Count 247 X10*3/uL (160-400); Red Cell Distribution Width 12.6 % (11.0-16.0); White Blood Count 6.9 X10*3/uL (4.8-10.8)
[2022-07-22 14:12] LABS: Troponin-I High Sensitivity < 3.5 ng/L (<3.5-35.0)
[2022-07-22 14:14] LABS: Alanine Aminotransferase 25 U/L (0-40); Albumin Level 4.8 g/dL (3.5-5.0); Alkaline Phosphatase 104 U/L (39-117); Anion Gap 14 (12-20); Aspartate Amino Transferase 35 U/L (5-37); Bilirubin Direct 0.3 mg/dL (0.0-0.5); Blood Urea Nitrogen 15 mg/dL (9-16); Calcium 9.5 mg/dL (8.4-10.2); Carbon Dioxide 27 mmol/L (22-29); Chloride 104 mmol/L (96-108); Creatinine Clr Calc Pharmacy 66.5; Estimated Glomerular Filt Rate > 60; Glucose Random 104 mg/dL (60-115); Potassium 4.7 mmol/L (3.3-5.1); Sodium 140 mmol/L (135-145)
[2022-07-22 17:12] VITALS: BP 149/113; PULSE 92; RESP 16; O2SAT 98
== END 2022-07-22 17:30 | disposition home or self-care (01) ==
PROVIDERS: Physician Assistant; Emergency Provider Student in an Organized Health Care Education/Training Program; PCP Internal Medicine
DX: H54.62 Unqualified visual loss, left eye, normal vision right eye (principal); H53.8 Other visual disturbances; R07.89 Other chest pain; R51.9 Headache, unspecified; Z79.899 Other long term (current) drug therapy
CPT/HCPCS: 36415; 70450; 80048; 80076; 83735; 84484; 85025; 93005; 99284

== ENCOUNTER 2022-07-28 09:29 | Outpatient (REF) | payer OTHER, SELFPAY ==
--- NOTE | 2022-07-28 09:31 | EMG_ITS ---
Bilateral median and ulnar motor and sensory studies were obtained. Bilateral radial sensory studies were obtained and paraspinal muscles were tested with a needle. IMPRESSION: 1. Mild bilateral ulnar neuropathy across cubital tunnel. 2. Mild right median neuropathy across carpal tunnel. MD MOLLY Verma/IVET / [id number]
== END 2022-07-28 09:30 | disposition home or self-care (01) ==
LOC: HO.NEURO 09:29
PROVIDERS: PCP Internal Medicine; Visit Provider Internal Medicine
DX: R20.0 Anesthesia of skin (principal)
CPT/HCPCS: 95886; 95911

== ENCOUNTER → 2022-08-03 13:34 | Outpatient (BNVA) | payer OTHER, SELFPAY | PROVIDERS: PCP Internal Medicine; Referring Provider Internal Medicine; Visit Provider Surgery | DX: K42.9 Umbilical hernia without obstruction or gangrene (principal) | CPT/HCPCS: 99212 ==

== ENCOUNTER 2022-08-08 08:26 | Outpatient (REF) | payer OTHER, SELFPAY ==
--- NOTE | ~2022-08-08 | XR_ITS ---
EXAMINATION: XR chest 2V CLINICAL INFORMATION: Reason for Exam surveillance COMPARISON: Chest radiograph 02/28/2021 TECHNIQUE: 2 views of the chest FINDINGS: Left lung base rounded opacity measuring 2.9 cm, not definitively seen on prior study. No pneumothorax or pleural effusion. Normal cardiomediastinal silhouette. XR/XR chest 2V Impression: 1. Left lung base rounded opacity measuring 2.9 cm, not definitively seen on prior study. Recommend further evaluation with CT chest with IV contrast if clinically indicated. 2. No acute cardiopulmonary findings.
== END 2022-08-08 08:27 | disposition home or self-care (01) ==
LOC: HO.XRAY 08:26
PROVIDERS: Visit Provider Internal Medicine
DX: C18.9 Malignant neoplasm of colon, unspecified (principal)
CPT/HCPCS: 71046

== ENCOUNTER 2022-08-17 10:33 | Outpatient (REF) | payer OTHER, SELFPAY ==
--- NOTE | ~2022-08-17 | CT_ITS ---
EXAMINATION: CT ABDOMEN AND PELVIS WITH CONTRAST CLINICAL INFORMATION: Colon cancer COMPARISON: Previous CT of the abdomen and pelvis July 2021 and abdominal ultrasound June 2022 TECHNIQUE: Multidetector volumetric images were obtained from the superior aspect of the liver through the pubic symphysis following administration 85 mL of Omnipaque 350 intravenous contrast. Sagittal and coronal reformatted images were obtained on the technologist's workstation. Oral contrast: Yes This CT examination was performed using dose optimization techniques as appropriate, variously including the following: *Automated exposure control *Adjustment of mA and/or kV according to patient size (this includes techniques or standardized protocols for targeted exams where dose is matched to indication/reason for exam; i.e. extremities or head) *Use of iterative reconstruction technique DLP: 374 mGy-cm FINDINGS: LUNG BASES: The visualized lung bases are unremarkable. LIVER, GALLBLADDER, AND BILIARY TREE: Fatty liver.. No focal hepatic lesion or biliary ductal dilatation is present. The gallbladder is unremarkable with no evidence of radiopaque gallstones, gallbladder wall thickening, or obvious pericholecystic inflammatory changes. PANCREAS: Unremarkable. SPLEEN: Unremarkable. ADRENAL GLANDS: Unremarkable. KIDNEYS AND URETERS: The kidneys are normal in size, shape, and attenuation. No hydronephrosis, hydroureter, or calculi seen. No perinephric stranding. BLADDER: Unremarkable. GASTROINTESTINAL TRACT: Postsurgical changes following right colectomy. Mild diverticulosis of the colon. ABDOMINAL WALL: Midline ventral or supraumbilical bulge containing small bowel. Right paraumbilical hernia containing small bowel. No evidence of obstruction. LYMPH NODES: Normal. VASCULAR: Unremarkable. PELVIC VISCERA: Slightly enlarged measuring 4 x 4.5 cm in transverse dimension. OSSEOUS STRUCTURES: Scoliosis and degenerative changes of the spine. CT/CT abdomen pelvis w IV con IMPRESSION: Postsurgical changes following right hemicolectomy. No evidence of metastatic disease. Fatty liver. Diverticulosis. Slightly enlarged prostate gland. Periumbilical hernias containing small bowel. Fleischner guidelines were followed.
--- NOTE | ~2022-08-17 | CT_ITS ---
EXAMINATION: CT CHEST WITH CONTRAST CLINICAL INFORMATION: Colon cancer. History of lung nodule. COMPARISON: Previous chest CT July 2022 and abdominal and pelvic CT most recent July 2021. TECHNIQUE: Multidetector volumetric CT imaging of the chest was obtained after the administration of 85 mL of Omnipaque 350 intravenous contrast without immediate adverse reactions. Axial MIP volume rendering provided. Sagittal and coronal reformatted images were obtained. This CT examination was performed using dose optimization techniques as appropriate, variously including the following: *Automated exposure control *Adjustment of mA and/or kV according to patient size (this includes techniques or standardized protocols for targeted exams where dose is matched to indication/reason for exam; i.e. extremities or head) *Use of iterative reconstruction technique DLP: 172 mGy-cm FINDINGS: LUNGS: There is a 2 mm right upper lobe nodule axial image 182 series 5. There is a 2 mm left lower lobe nodule axial image 255 series 5. There is minimal scarring or subsegmental atelectasis at the lung bases. MEDIASTINUM: The mediastinum is normal. PLEURA: There is no pleural effusion. No pleural mass or thickening. AXILLA: No lymphadenopathy. UPPER ABDOMEN: Fatty liver. OSSEOUS STRUCTURES: Mild degenerative changes. CT/CT chest w IV con IMPRESSION: Small pulmonary nodules or micronodules. Chest CT follow-up as per protocol. Fleischner guidelines were followed.
[2022-08-17] MEDS: iohexoL 350 MG/ML 100 ML INFUS..BTL IV (12:23)
== END 2022-08-17 10:34 | disposition home or self-care (01) ==
LOC: HO.CT 10:33
PROVIDERS: PCP Internal Medicine; Visit Provider Internal Medicine
DX: C18.9 Malignant neoplasm of colon, unspecified (principal)
CPT/HCPCS: 71260; 74177; Q9967

== ENCOUNTER 2022-09-08 08:48 | Outpatient (REF) | payer OTHER, SELFPAY ==
[2022-09-08 10:29] LABS: Alanine Aminotransferase 24 U/L (0-40); Albumin Level 4.6 g/dL (3.5-5.0); Alkaline Phosphatase 89 U/L (39-117); Anion Gap 12 (12-20); Aspartate Amino Transferase 24 U/L (5-37); Blood Urea Nitrogen 12 mg/dL (9-16); Calcium 9.7 mg/dL (8.4-10.2); Carbon Dioxide 26 mmol/L (22-29); Chloride 106 mmol/L (96-108); Cholesterol 176 mg/dL; Estimated Glomerular Filt Rate > 60; Glucose Fasting 111 mg/dL (60-99); HDL Cholesterol 65 mg/dL; LDL Cholesterol Calculated 88 mg/dl; Potassium 4.9 mmol/L (3.3-5.1); Sodium 139 mmol/L (135-145); Total Protein 6.9 g/dL (6.5-8.0); Triglycerides 117 mg/dL
== END 2022-09-08 08:49 | disposition home or self-care (01) ==
LOC: HO.LAB 08:48
PROVIDERS: PCP Internal Medicine; Visit Provider Internal Medicine
DX: R25.2 Cramp and spasm (principal); E78.5 Hyperlipidemia, unspecified
CPT/HCPCS: 36415; 80053; 80061; 83735

== ENCOUNTER 2022-09-09 06:38 | Day surgery (SDC) | payer OTHER, SELFPAY ==
[2022-09-07 14:44] VITALS: BMI 34.4
--- NOTE | 2022-09-08 12:15 | HO.ANESPROP2 ---
Documented by User: Vidhya Miranda NP 09/08/22 12:18 HPI - Anesthesia Eval Consult details Narrative: 62yo M for Colonoscopy s/p bowel resect 2020 (mass) PMFSH Active Problems Active Problems: All Active Problems (Updated 08/16/22 @ 08:56 by Chloe Henry MD) Tubular adenoma of colon (Acute) Abdominal pain (Acute) Colon cancer screening (Acute) ROSADO (nonalcoholic steatohepatitis) (Acute) Muscle cramping (Acute) Polyuria (Acute) Physical exam (Acute) Hand numbness (Acute) Hyperkalemia (Acute) Rash (Acute) Nail deformity (Acute) Umbilical hernia (Acute) Pure hypercholesterolemia (Acute) Lung nodule (Acute) History of colon cancer (Acute) Colon cancer (Chronic) Chest pain (Acute) Neck pain (Acute) Impaired glucose tolerance (Acute) Back pain (Acute) Past Medical History Medical History Back pain Chest pain Colon cancer History of gibbs History of colon cancer Impaired glucose tolerance Mass of cecum Neck pain Numbness and tingling in left hand Transaminitis Family History Family History Maternal Grandmother History of diabetes mellitus History of hypertension Mother Medical history unknown Father Medical history unknown Son No problems noted. Son No problems noted. Son No problems noted. Daughter No problems noted. Family history of problems with anesthesia: No Surgical History Surgical History H/O colonoscopy History of bunionectomy History of colectomy History of esophagogastroduodenoscopy (EGD) History of excision of mass History of right inguinal hernia repair History of varicose vein ligation and stripping Hx of hand surgery History of Problems with Anesthesia: No Social History Social History Household Members: Family Housing: House Are you a primary rn care manager to a significant other at home: No Do you presently have visiting nurse or other home services: No Alcohol intake: current Alcohol intake frequency: holidays/special occasions only Alcohol type: other Patient Tobacco Use Status: Never used Tobacco e-Cigarette/Vaping Use: Never Used Second Hand Smoke Exposure: No Substance Use Type: Marijuana Are you DNR?: No Advance Directives: No Advance Directives Information Provided: Yes service: No Current occupational status: unemployed Cognitive needs: No Hearing needs: No Vision needs: No Meds Allergies Allergy/AdvReac Type Severity Reaction Status Date / Time tramadol Allergy Intermediate muscle Verified 08/16/22 08:19 cramps Exam Exam Date and Time: September 08, 2022 1215 Height,Weight and Vital Signs: Height 5 ft 9 in Weight 105.687 kg Pertinent Lab Results Pertinent Lab Results: Laboratory Tests 07/22/22 09/08/22 13:46 09:03 WBC 6.9 Hgb 15.5 Hct 44.6 Plt Count 247 Sodium 139 Potassium 4.9 Chloride 106 Carbon Dioxide 26 BUN 12 Creatinine 1.10 Narrative Narrative: EKG 06/2022 Vent. Rate : 068 BPM ? ? Atrial Rate : 078 BPM ?? P-R Int : 170 ms? QRS Dur : 092 ms ? ? QT Int : 374 ms ? ? ? P-R-T Axes : 069 -37 015 degrees ?? QTc Int : 397 ms ? Sinus rhythm with marked sinus arrhythmia with occasional Premature ventricular complexes Left axis deviation Possible Anterior infarct , age undetermined Abnormal ECG When compared with ECG of 24-JUN-2022 13:25, No significant change was found Assessment and Plan Assessment Anesthesia Assessment: Chart Reviewed Final Anesthetic Review Family History of Problems with Anesthesia: No History of Problems with Anesthesia: No Documented by User: Yany Espinoza MD 09/09/22 08:34 PMFSH Past Medical History Medical History Back pain Chest pain Colon cancer History of gibbs History of colon cancer Impaired glucose tolerance Mass of cecum Neck pain Numbness and tingling in left hand Transaminitis Family History Family History Maternal Grandmother History of diabetes mellitus History of hypertension Mother Medical history unknown Father Medical history unknown Son No problems noted. Son No problems noted. Son No problems noted. Daughter No problems noted. Surgical History Surgical History H/O colonoscopy History of bunionectomy History of colectomy History of esophagogastroduodenoscopy (EGD) History of excision of mass History of right inguinal hernia repair History of varicose vein ligation and stripping Hx of hand surgery Social History Social History Household Members: Family Housing: House Are you a primary rn care manager to a significant other at home: No Do you presently have visiting nurse or other home services: No Alcohol intake: current Alcohol intake frequency: holidays/special occasions only Alcohol type: other Patient Tobacco Use Status: Never used Tobacco e-Cigarette/Vaping Use: Never Used Second Hand Smoke Exposure: No Substance Use Type: Marijuana Are you DNR?: No Advance Directives: No Advance Directives Information Provided: Yes service: No Current occupational status: unemployed Cognitive needs: No Hearing needs: No Vision needs: No Meds Allergies Allergy/AdvReac Type Severity Reaction Status Date / Time tramadol Allergy Intermediate muscle Verified 08/16/22 08:19 cramps Exam Airway Mallampati Class: II TM Dist: >3cm Neck ROM: Full Heart: rrr Lungs: cta Assessment and Plan Assessment Anesthesia Assessment: Anesthesia Plan Discussed and Smoking Cess. Discussed Final Anesthetic Review NPO: Yes ASA Class: III Final Preanesthetic Review: No Changes in Pt Med Stat, Meds/Allgs Chart Reviewed, Consent Obtained/Reviewed and Anes Risks/Benef Reviewed Patient Risk: Low Procedure Risk: Low Anesthetic Plan Anesthetic Plan: MAC: Disposition: Standard PACU
--- NOTE | 2022-09-09 07:22 | MHC.SHP ---
Pre-Procedural Eval Section A Date of Service: 09/09/22 The patient is an INPATIENT: No The History & Physical has been completed within 30 days and I have reviewed it.: No Section B Chief Complaint: screening, hx of cecal cancer Relevant Family History (Specify if Yes): No Relevant Social History: None Present Medications: see Short Stay Collaborative assessment Medical History: Significant History (Back pain Chest pain Colon cancer History of gibbs Impaired glucose tolerance Mass of cecum Neck pain Numbness and tingling in left hand Transaminitis) History of Previous Operations: Relevant previous surgery/procedure and date(s) (History of colectomy History of esophagogastroduodenoscopy (EGD) History of excision of mass History of right inguinal hernia repair History of varicose vein ligation and stripping Hx of hand surgery) Allergies: Allergies Allergy/AdvReac Type Severity Reaction Status Date / Time tramadol Allergy Intermediate muscle Verified 08/16/22 08:19 cramps Review of Systems Sugical H&P ROS: Negative: Constitution, Cardiovascular, Respiratory and Gastrointestinal Exam Surgical H&P Exam: Normal: Heart, Normal: Lungs, Normal: Extremities and Normal: Abdomen Plan Diagnosis/Plan: Unchanged I have reviewed the history and physical and performed a pertinent physical examination on my patient. No changes have occurred unless specified. Time Spent With Patient Time: Total time managing care of this patient today ____ minutes.
[2022-09-09 07:23] VITALS: BP 133/86; PULSE 61; RESP 16; TEMP 36.5; O2SAT 99; BMI 27.1
[2022-09-09] MEDS: Lactated Ringers 1,000 ML 100 ML IVCONT (07:42)
--- NOTE | 2022-09-09 08:31 | W.PM.OPN ---
Operative Note Operative Note Date of Service: 09/09/22 Narrative: COLONOSCOPY TILL CECUM WITH SNARE POLYPECTOMY Pre-op diagnosis: Colon cancer screening, history of cecal cancer status post right hemicolectomy Post-op diagnosis:? Colon polyp, diverticulosis, hemorrhoid Endoscopist:? Chele Talbert MD Anesthesia:?MAC Consent: Indications for the procedure and potential complications of bleeding, perforation, reaction to medications and missed diagnosis were discussed with the patient and informed consent was obtained. Instrument: Olympus PCF H 190 L variable stiffness pediatric colonoscope Monitoring: Vital signs and clinical assessment, intermittent blood pressure monitoring, continuous EKG monitoring, Pulse oximetry and Carbon Dioxide monitoring were done throughout the procedure. Please see anesthesia flowsheet. Colon withdrawl time was 11 minutes. Procedure: The patient was placed in the left lateral decubitis position and pre-procedure medications were administered. After a digital rectal examination of the ano-rectum, the video colonoscope was inserted into the rectum and advanced through the colon to the ileo-colic anastomosis. The colonoscope was slowly withdrawn in a retrograde panoramic fashion and the colon mucosa was carefully examined including a retroflexed view of the rectum. Findings and interventions are described below. Procedure Difficulty: Without difficulty Findings: Terminal Ileum: distal 2 cms of babita-terminal ileum visulaized and appeared normal Transverse Colon: Normal ileo-colic anastomosis. A 6-7 mm sessile polyp proximal to the anastomosis - removed with a cold snare Descending Colon: Moderate diverticulosis Sigmoid Colon: Moderate diverticulosis Rectum: Normal Ano-rectum: Small internal hemorrhoids Colon preparation: Good Impression and Post Procedure Diagnosis: Colonoscopy Findings: One small polyp removed Moderate diverticulosis seen in the left colon Small hemorrhoids on retroflexed exam. Plan: Await pathology results Patient has an appointment on 09/23/22 in the [facility] with Paige Parish NP. Repeat Colonoscopy interval based on path results - in 3 years if polyps are adenomatous and due to a hx of cecal cancer. Colon polyps and diverticulosis handouts were given in the discharge area
[2022-09-09 09:10] VITALS: BP 97/67; PULSE 67; RESP 16; TEMP 36.7; O2SAT 98
[2022-09-09 09:25] VITALS: BP 126/86; PULSE 70; RESP 18; TEMP 36.8; O2SAT 98
== END 2022-09-09 09:50 | disposition home or self-care (01) ==
PROVIDERS: PCP Internal Medicine; Visit Provider Internal Medicine Gastroenterology
PROC: 0DJD8ZZ Inspection of Lower Intestinal Tract, Via Natural or Artificial Opening Endoscopic (ICD-10-PCS; CPT 45378; principal; 2022-09-09 08:30)
DX: Z12.11 Encounter for screening for malignant neoplasm of colon (principal); D12.3 Benign neoplasm of transverse colon; K57.30 Diverticulosis of large intestine without perforation or abscess without bleeding; K64.8 Other hemorrhoids; Z85.038 Personal history of other malignant neoplasm of large intestine; Z98.0 Intestinal bypass and anastomosis status; Z88.5 Allergy status to narcotic agent
CPT/HCPCS: 45385; 88305; J2250

== ENCOUNTER → 2022-09-23 10:35 | Outpatient (BNVA) | payer OTHER, SELFPAY | PROVIDERS: PCP Internal Medicine; Referring Provider Internal Medicine; Visit Provider Nurse Practitioner | DX: Z12.11 Encounter for screening for malignant neoplasm of colon (principal); D12.6 Benign neoplasm of colon, unspecified | CPT/HCPCS: 99212 ==

== ENCOUNTER 2022-12-19 07:50 | Outpatient (AMB) | payer OTHER, SELFPAY ==
[2022-12-19 08:02] VITALS: BP 126/82; BMI 26.3
--- NOTE | 2022-12-19 08:02 | MHC.PC.OV ---
Vital Signs 12/19/22 08:02 Height 5 ft 9 in Weight 178 lb BMI 26.3 BP 126/82 Blood Pressure Location Lt brachial Position Sitting Intake Visit Reasons: 6mth f/u Intake Note: Patient here for a 6 month follow up Publications Sales Representative Required: No Accompanied by: Self / Same As Patient Allergies tramadol Allergy (Intermediate, Verified 12/19/22 08:45) muscle cramps Medication List - Last Reconciled 12/19/22 by Chloe Henry MD atorvastatin 20 mg PO BEDTIME 90 days cyclobenzaprine 10 mg PO BEDTIME PRN 90 days ibuprofen 600 mg PO TID PRN 30 days trazodone 50 mg PO BEDTIME PRN 90 days Tobacco use date assessed: 08/16/22 Dental Screening Dental Screen Date: 12/19/22 Did you have a dental visit in the last 12 months?: No Did you have a dental problem in the last 6 months where you did not have access to dental care?: No Was dental information given to patient?: Patient has dentist HPI HPI Comments History of Present Illness Details This is a 62-year-old male with pure hypercholesterolemia that comes today complaining of right hip pain that has been present for few months and muscle cramps and has been present for over 6 months. On statins for his cholesterol and has been well control. I recommend use muscle relaxers for muscle cramps. Will order x-ray for the right hip. Has full active range of motion. History of colon cancer follow by Hematology-Oncology and Gastroenterology. [facility] Medical History (Updated 12/19/22 @ 08:53 by Chloe Henry MD) Back pain Chest pain Colon cancer History of gibbs History of colon cancer Impaired glucose tolerance Mass of cecum Neck pain Numbness and tingling in left hand Transaminitis Surgical History H/O colonoscopy History of bunionectomy History of colectomy History of esophagogastroduodenoscopy (EGD) History of excision of mass History of right inguinal hernia repair History of varicose vein ligation and stripping Hx of hand surgery Family History Maternal Grandmother History of diabetes mellitus History of hypertension Mother Medical history unknown Father Medical history unknown Son No problems noted. Son No problems noted. Son No problems noted. Daughter No problems noted. Social History (Updated 12/19/22 @ 08:48 by Chloe Henry MD) Household Members: Family Housing: House Are you a primary managed care specialist to a significant other at home: No Do you presently have visiting nurse or other home services: No Alcohol intake: current Alcohol intake frequency: holidays/special occasions only Alcohol type: other Patient Tobacco Use Status: Former Tobacco user e-Cigarette/Vaping Use: Never Used Second Hand Smoke Exposure: No Substance Use Type: Marijuana service: No Current occupational status: unemployed Cognitive needs: No Hearing needs: No Vision needs: No Questionnaire Thrive Questionnaire Date Thrive assessed: 08/16/22 MARKOS-7 AMB Questionnaire MARKOS-7 Date MARKOS - 7 assessed: 08/16/22 Source: Developed by Drs. Maciel Cobos, Tammy Forrester, Jan Wilson and colleagues, with an educational xavier from [employer]. Review of Systems Const All systems reviewed & are unremarkable except as noted in HPI and below Eyes Reports no additional complaints, Denies change in vision and Denies other visual disturbances Card Denies chest pain at rest, Denies chest pain with activity, Denies edema, Denies irregular heart rhythm, Denies claudication, Denies dyspnea, Denies dyspnea on exertion, Denies orthopnea, Denies paroxysmal nocturnal dyspnea and Denies slow heart rate Resp Denies cough, Denies dyspnea and Denies dyspnea on exertion GI Denies abdominal pain, Denies change in bowel habits, Denies excessive flatus, Denies nausea and Denies vomiting Denies urinary hesitancy, Denies urinary incontinence and Denies urinary urgency Musc Denies abnormal gait, Reports back pain, Denies atrophy, Denies deformity, Reports arthralgias, Denies limited range of motion and Reports muscle cramps Skin/Breast Denies bleeding lesions, Denies changing lesions and Denies rash Neuro Denies abnormal gait and Denies lack of coordination Physical exam (Primary Care) Vital Signs: Last Vital Signs BP 126/82 12/19/22 08:02 BMI result Body Mass Index 26.3 Tobacco/Smoking Status: Tobacco use Status Tobacco use date assessed 08/16/22 12/19/22 08:07 Patient Tobacco Use Status Former Tobacco user 12/19/22 08:48 e-Cigarette/Vaping Use Never Used 12/19/22 08:48 Thrive Assessment: Date of Thrive Assessment Date Thrive assessed 08/16/22 12/19/22 08:07 Eyes General: appearance normal, both eyes and all related structures Eyelids: Yes eyelids normal Conjunctivae: conjunctivae normal Neck Neck: Yes normal visual inspection and Yes supple Resp Effort & Inspection: normal respiratory effort Auscultation: clear to auscultation bilaterally Cardio Jugular venous distension: no JVD Rate: regular rate Rhythm: regular rhythm Heart sounds: S1 normal heart sound present and S2 normal heart sound present Extrem General: Yes full ROM Assessment and Plan Assessment & Plan (1) Pure hypercholesterolemia: Code(s): E78.00 - Pure hypercholesterolemia, unspecified Plan: Continue statins (2) Right hip pain: Code(s): M25.551 - Pain in right hip Plan: X-ray ordered. (3) Cramps, extremity: Code(s): R25.2 - Cramp and spasm Plan: Continue muscle relaxer as needed. Orders: Orders XR hip RT min 2V Today M25.551 - Pain in right hip Comprehensive [place]. Panel Fast 4 Months M25.551 - Pain in right hip Lipid Panel 4 Months E78.5 - Hyperlipidemia, unspecified Magnesium 4 Months R25.2 - Cramp and spasm Coding Level of Care Code Est Pt Level 3 (31289) Diagnoses Pure hypercholesterolemia E78.00 Right hip pain M25.551 Cramps, extremity R25.2 Time Spent (min) 19
== END 2022-12-19 08:57 | disposition home or self-care (01) ==
PROVIDERS: Visit Provider Internal Medicine
DX: E78.00 Pure hypercholesterolemia, unspecified (principal); M25.551 Pain in right hip; R25.2 Cramp and spasm
CPT/HCPCS: 99213

== ENCOUNTER 2023-09-11 10:40 | Outpatient (REF) | payer OTHER, SELFPAY ==
[2023-09-11 11:35] LABS: Alanine Aminotransferase 184 U/L (0-40); Albumin Level 4.6 g/dL (3.5-5.0); Alkaline Phosphatase 85 U/L (39-117); Anion Gap 15 (12-20); Aspartate Amino Transferase 149 U/L (5-37); Bilirubin Total 0.7 mg/dL (0.0-1.0); Blood Urea Nitrogen 17 mg/dL (9-16); Calcium 10.2 mg/dL (8.4-10.2); Carbon Dioxide 27 mmol/L (22-29); Chloride 105 mmol/L (96-108); Cholesterol 240 mg/dL (<200); Estimated Glomerular Filt Rate > 60; Glucose Fasting 124 mg/dL (60-99); HDL Cholesterol 106 mg/dL (>40); LDL Cholesterol Calculated 121 mg/dL (<100); Magnesium 2.2 mg/dL (1.6-2.6); Potassium 4.6 mmol/L (3.3-5.1); Sodium 142 mmol/L (135-145); Total Protein 7.6 g/dL (6.5-8.0); Triglycerides 68 mg/dL (<150)
== END 2023-09-11 10:41 | disposition home or self-care (01) ==
LOC: HO.LAB 10:40
PROVIDERS: PCP Internal Medicine; Visit Provider Internal Medicine
DX: M25.551 Pain in right hip (principal); E78.5 Hyperlipidemia, unspecified; R25.2 Cramp and spasm
CPT/HCPCS: 36415; 80053; 80061; 83735

== ENCOUNTER 2023-09-11 15:45 | Outpatient (AMB) | payer OTHER, SELFPAY ==
[2023-09-11 16:01] VITALS: BP 140/90; BMI 25.8
--- NOTE | 2023-09-11 16:01 | A.OFFPC_ITS ---
Vital Signs 09/11/23 16:01 Height 5 ft 9 in Weight 175 lb BMI 25.8 BP 140/90 H Blood Pressure Location Lt brachial Position Sitting Intake Visit Reasons: Physical exam- NEEDS PHQ9 Intake Note: Patient here for a physical exam, c/o left side back pain, arm heaviness, leg cramps Rn Oncology Required: No Accompanied by: Self / Same As Patient Allergies tramadol Allergy (Intermediate, Verified 09/11/23 16:22) muscle cramps Medication List - Last Reconciled 09/11/23 by Chloe Henry MD atorvastatin 20 mg PO BEDTIME 90 days cyclobenzaprine 10 mg PO BEDTIME PRN 90 days ibuprofen 600 mg PO TID PRN 30 days trazodone 50 mg PO BEDTIME PRN 90 days Tobacco use date assessed: 09/11/23 Dental Screening Dental Screen Date: 09/11/23 Did you have a dental visit in the last 12 months?: No Did you have a dental problem in the last 6 months where you did not have access to dental care?: No Was dental information given to patient?: Patient has dentist HPI HPI Comments History of Present Illness Details This is a 63-year-old male with history of colon cancer that comes for his physical exam. Last colonoscopy was August 2022 showing tubular adenoma. Complains of diffuse joint pain. Has left costovertebral angle tenderness and ultrasound of the kidneys will be ordered. No chest pain or shortness of breath. Elevated cholesterol but he admits not being compliant with statins. Has transaminitis that will be repeated in a month. [facility] Medical History (Updated 09/11/23 @ 16:44 by Chloe Henry MD) Transaminitis History of colon cancer Colon cancer Numbness and tingling in left hand History of gibbs Mass of cecum Chest pain Neck pain Impaired glucose tolerance Back pain Surgical History History of colectomy Hx of hand surgery History of esophagogastroduodenoscopy (EGD) H/O colonoscopy History of varicose vein ligation and stripping History of bunionectomy History of excision of mass History of right inguinal hernia repair Family History Maternal Grandmother History of diabetes mellitus History of hypertension Mother Medical history unknown Father Medical history unknown Son No problems noted. Son No problems noted. Son No problems noted. Daughter No problems noted. Social History Household Members: Family Housing: House Are you a primary manager intensive care to a significant other at home: No Do you presently have visiting nurse or other home services: No Alcohol intake: current Alcohol intake frequency: holidays/special occasions only Alcohol type: other Patient Tobacco Use Status: Former Tobacco user e-Cigarette/Vaping Use: Never Used Second Hand Smoke Exposure: No Substance Use Type: Marijuana service: No Current occupational status: unemployed Cognitive needs: No Hearing needs: No Vision needs: No Questionnaire PHQ-9 Over the last 2 weeks, how often have you been bothered by any of the following problems? 1. Little interest or pleasure in doing things: not at all 2. Feeling down, depressed, or hopeless: not at all 3. Trouble falling or staying asleep, or sleeping too much: not at all 4. Feeling tired or having little energy: not at all 5. Poor appetite or overeating: not at all 6. Feeling bad about yourself - or that you are a failure or have let yourself or your family down: not at all 7. Trouble concentrating on things, such as reading the newspaper or watching television: not at all 8. Moving or speaking so slowly that other people could have noticed. Or the opposite - being so fidgety or restless that you have been moving around a lot more than usual: not at all 9. Thoughts that you would be better off or of hurting yourself in some way: not at all Total score: 0 Depression Screening Interpretation: Negative Depression Screening Done: Yes 10790 - PHQ-9 Billing: Yes Source: Developed by Drs. Maciel Cobos, Tammy Forrester, Jan Wilson and colleagues, with an educational xavier from [employer]. Thrive Questionnaire Date Thrive assessed: 09/11/23 I am a: Patient What is your living situation today?: I have a steady place to live Within the past 12 months, did the food you bought not last and you didn't have the money to get more?: Never true Within the past 12 months, did you worry whether your food would run out before you got money to buy more?: Never true Do you have trouble paying for medicines?: No Do you have trouble getting transportation to medical appointments?: No Do you have trouble paying your heating and electricity bill?: No Do you have trouble taking care of your child, family member or friend?: No Do you have trouble with day-to-day activities such as bathing, preparing meals, shopping, managing finances, etc.?: No Are you currently unemployed and looking for a job?: No Are you interested in more education?: No Please select the resources that you would like help with: None Currently or been in a relationship where the following occur: no concerns reported THRIVE Score: 0 AUDIT C Alcohol Use Questionnaire (AUDIT-C) 1. How often do you have a drink containing alcohol?: 2-4 times a month 2. How many drinks containing alcohol do you have on a typical day when you are drinking?: 1 or 2 3. How often do you have six or more drinks on one occasion?: Never Total Score: 2 MARKOS-7 AMB Questionnaire MARKOS-7 Date MARKOS - 7 assessed: 09/11/23 Feeling nervous, anxious, or on edge: 1 = Several days Not being able to stop or control worryin = Not at all Worrying too much about different things: 0 = Not at all Trouble relaxin = Not at all Being so restless that it is hard to sit still: 0 = Not at all Becoming easily annoyed or irritable: 0 = Not at all Feeling afraid as if something awful might happen: 0 = Not at all Total MARKOS-7 score (0-4 normal; 5-9 mild; 10-14 moderate; 15-21 severe): 1 Source: Developed by Drs. Maciel Cobos, Tammy Forrester, Jan Wilson and colleagues, with an educational xavier from [employer]. MARKOS-7 Assessment Billing MARKOS-7 Assessment Tool: MARKOS-7 Assessment 96578 Review of Systems Const All systems reviewed & are unremarkable except as noted in HPI and below Eyes Reports no additional complaints, Denies change in vision and Denies other visual disturbances Card Denies chest pain at rest, Denies chest pain with activity, Denies edema, Denies irregular heart rhythm, Denies claudication, Denies dyspnea, Denies dyspnea on exertion, Denies orthopnea, Denies paroxysmal nocturnal dyspnea and Denies slow heart rate Resp Denies cough, Denies dyspnea and Denies dyspnea on exertion GI Denies abdominal pain, Denies change in bowel habits, Denies excessive flatus, Denies nausea and Denies vomiting Denies urinary incontinence Physical exam (Primary Care) Vital Signs: Last Vital Signs BP 140/90 H 09/11/23 16:01 BMI result Body Mass Index 25.8 Tobacco/Smoking Status: Tobacco use Status Tobacco use date assessed 09/11/23 09/11/23 16:10 Patient Tobacco Use Status Former Tobacco user 09/11/23 16:10 e-Cigarette/Vaping Use Never Used 09/11/23 16:10 PHQ-9: PHQ-9 Score PHQ-9: Total score 0 09/11/23 16:45 Depression Screening Interpretation: Negative Thrive Assessment: Date of Thrive Assessment Date Thrive assessed 09/11/23 09/11/23 16:10 Currently or been in a relationship where the following occur: no concerns reported Const Orientation/consciousness: patient oriented x3 HENFL Head: Yes normal to inspection, Yes normocephalic and Yes atraumatic Ears: external ears normal Eyes General: appearance normal, both eyes and all related structures Eyelids: Yes eyelids normal Conjunctivae: conjunctivae normal Neck Neck: Yes normal visual inspection and Yes supple Resp Effort & Inspection: normal respiratory effort Auscultation: clear to auscultation bilaterally Cardio Jugular venous distension: no JVD Rate: regular rate Rhythm: regular rhythm Heart sounds: S1 normal heart sound present and S2 normal heart sound present GI Inspection: Yes normal to inspection Palpation (GI): Soft to palpation and nontender Auscultation: normal bowel sounds Skin General skin exam: no rashes or lesions noted Neuro General: patient oriented x3 and no focal motor deficits Extrem General: Yes full ROM Psych Appearance: grossly normal Assessment and Plan Assessment & Plan (1) Physical exam: Code(s): Z00.00 - Encounter for general adult medical examination without abnormal findings Plan: Repeat in a year. (2) Colon cancer: Code(s): C18.9 - Malignant neoplasm of colon, unspecified Plan: Follow-up with Gastroenterology. Orders: Orders Comprehensive [place]. Panel Fast Today R74.01 - Elevation of levels of liver transaminase levels US renal BI Today N20.0 - Calculus of kidney PT Evaluation and Treatment Today M25.511 - Pain in right shoulder, M25.512 - Pain in left shoulder Medications: Refilled atorvastatin 20 mg PO BEDTIME 90 tabs 0RF 90 days E78.00 - Pure hypercholesterolemia, unspecified Coding Level of Care Code Est Pt Prev Care 40-64y(06951) Diagnoses Physical exam Z00.00 Colon cancer C18.9 Additional Codes MARKOS-7 Assessment Billing - MARKOS-7 Assessment Tool: MARKOS-7 Assessment [id number] ([id number]) Time Spent (min) 33
== END 2023-09-11 16:41 | disposition home or self-care (01) ==
PROVIDERS: PCP Internal Medicine; Visit Provider Internal Medicine
DX: Z00.00 Encounter for general adult medical examination without abnormal findings (principal); C18.9 Malignant neoplasm of colon, unspecified
CPT/HCPCS: 99396

== ENCOUNTER 2023-09-20 09:47 | Outpatient (REF) | payer OTHER, SELFPAY ==
--- NOTE | ~2023-09-20 | US_ITS ---
EXAMINATION: US RETROPERITONEAL LIMITED (RENAL ONLY) CLINICAL INFORMATION: Calculus of kidney. COMPARISON: CT abdomen and pelvis 08/17/2022. Ultrasound abdomen limited with elastography 09/09/2020. X-ray abdomen KUB 05/07/2015. TECHNIQUE: Real-time imaging of the kidneys. Limited visualization due to bowel gas. FINDINGS: RIGHT KIDNEY: 10.0 x 5.5 x 7.0 cm (SAG x AP x TRV). No hydronephrosis. No renal calculi. Renal cortical thickness is normal. Limited visualization. . LEFT KIDNEY: 9.9 x 5.9 x 4.9 cm (SAG x AP x TRV). No hydronephrosis. No renal calculi. Renal cortical thickness is normal. Limited visualization. . US/US renal BI IMPRESSION: No hydronephrosis. No renal calculi.
== END 2023-09-20 09:48 | disposition home or self-care (01) ==
LOC: HO.US 09:47
PROVIDERS: PCP Internal Medicine; Visit Provider Internal Medicine
DX: N20.0 Calculus of kidney (principal)
CPT/HCPCS: 76775

== ENCOUNTER 2023-10-17 07:26 | Outpatient (REF) | payer OTHER, SELFPAY ==
--- NOTE | ~2023-10-17 | CT_ITS ---
EXAMINATION: CT ABDOMEN AND PELVIS WITH CONTRAST CLINICAL INFORMATION: Colon cancer. Surveillance. COMPARISON: Previous CT of the abdomen and pelvis July 2022 abdominal ultrasound June 2022 and renal ultrasound August 2023 TECHNIQUE: Multidetector volumetric images were obtained from the superior aspect of the liver through the pubic symphysis following administration 85 mL of Omnipaque 350 intravenous contrast. Sagittal and coronal reformatted images were obtained on the technologist's workstation. Oral contrast: Yes This CT examination was performed using dose optimization techniques as appropriate, variously including the following: *Automated exposure control *Adjustment of mA and/or kV according to patient size (this includes techniques or standardized protocols for targeted exams where dose is matched to indication/reason for exam; i.e. extremities or head) *Use of iterative reconstruction technique DLP: 328 mGy-cm FINDINGS: LUNG BASES: The visualized lung bases are unremarkable. LIVER, GALLBLADDER, AND BILIARY TREE: The liver is normal in size, shape, and attenuation. No focal hepatic lesion or biliary ductal dilatation is present. The gallbladder is unremarkable with no evidence of radiopaque gallstones, gallbladder wall thickening, or obvious pericholecystic inflammatory changes. PANCREAS: Unremarkable. SPLEEN: Unremarkable. ADRENAL GLANDS: Unremarkable. KIDNEYS AND URETERS: The kidneys are normal in size, shape, and attenuation. No hydronephrosis, hydroureter, or calculi seen. No perinephric stranding. BLADDER: Not optimally distended. Difficult to exclude mild diffuse bladder wall thickening. GASTROINTESTINAL TRACT: Postsurgical changes following right hemicolectomy. Diverticulosis of the colon. There is wall thickening of the proximal left colon. There is stranding of the adjacent fat and thickening of the left lateral: Normal fashion. Small and large bowel otherwise unremarkable. ABDOMINAL WALL: Small umbilical hernia containing small bowel. No evidence of obstruction. LYMPH NODES: Normal. VASCULAR: Unremarkable. PELVIC VISCERA: Unremarkable. OSSEOUS STRUCTURES: Degenerative changes of the spine. CT/CT abdomen pelvis w IV con IMPRESSION: Postsurgical changes following right hemicolectomy. Diverticulosis. Mild wall thickening of the proximal left colon, stranding of the fat and thickening of the adjacent lateral conal fascia. Diverticulitis, colitis and neoplasm should be considered. If there is clinical suspicion of colitis or diverticulitis, short-term imaging follow-up following treatment would be recommended. Otherwise correlation with colonoscopy would be recommended at this time. Fatty liver. Fleischner guidelines were followed.
[2023-10-17] MEDS: iohexoL 350 MG/ML 100 ML INFUS..BTL 85 ML IV (09:08)
== END 2023-10-17 07:27 | disposition home or self-care (01) ==
LOC: HO.CT 07:26
PROVIDERS: PCP Internal Medicine; Visit Provider Internal Medicine
DX: C18.9 Malignant neoplasm of colon, unspecified (principal)
CPT/HCPCS: 74177; Q9967

== ENCOUNTER 2024-02-06 07:42 | Outpatient (REF) | payer OTHER, SELFPAY ==
[2024-02-06 09:04] LABS: Alanine Aminotransferase 91 U/L (0-40); Albumin Level 4.4 g/dL (3.5-5.0); Alkaline Phosphatase 85 U/L (39-117); Anion Gap 14 (12-20); Aspartate Amino Transferase 57 U/L (5-37); Bilirubin Total 0.8 mg/dL (0.0-1.0); Blood Urea Nitrogen 14 mg/dL (9-16); Calcium 9.4 mg/dL (8.4-10.2); Carbon Dioxide 26 mmol/L (22-29); Chloride 104 mmol/L (96-108); Estimated Glomerular Filt Rate > 60; Glucose Fasting 121 mg/dL (60-99); Potassium 4.3 mmol/L (3.3-5.1); Sodium 140 mmol/L (135-145); Total Protein 6.9 g/dL (6.5-8.0)
== END 2024-02-06 07:43 | disposition home or self-care (01) ==
LOC: HO.LAB 07:42
PROVIDERS: PCP Internal Medicine; Visit Provider Internal Medicine
DX: M25.551 Pain in right hip (principal); M79.642 Pain in left hand; K42.9 Umbilical hernia without obstruction or gangrene; E78.00 Pure hypercholesterolemia, unspecified; Z23 Encounter for immunization; Z28.21 Immunization not carried out because of patient refusal
CPT/HCPCS: 36415; 80053; 83036; 90471; 90715; 99212

== ENCOUNTER 2024-02-06 08:07 | Outpatient (AMB) | payer OTHER, SELFPAY ==
[2024-02-06 08:09] VITALS: BP 128/84; BMI 25.5
--- NOTE | 2024-02-06 08:09 | MHC.PC.OV ---
Vital Signs 02/06/24 08:09 Height 5 ft 9 in Weight 173 lb BMI 25.5 BP 128/84 Blood Pressure Location Lt brachial Position Sitting Intake Visit Reasons: bp lipids Intake Note: Patient here for a follow up Bp, Lipids Clinical Rn Manager Required: No Accompanied by: Self / Same As Patient Allergies tramadol Allergy (Intermediate, Verified 02/06/24 08:24) muscle cramps Medication List - Last Reconciled 02/06/24 by Chloe Henry MD atorvastatin 20 mg PO BEDTIME 90 days cyclobenzaprine 10 mg PO BEDTIME PRN 90 days ibuprofen 600 mg PO TID PRN 30 days trazodone 50 mg PO BEDTIME PRN 90 days Tobacco use date assessed: 09/11/23 Dental Screening Dental Screen Date: 02/06/24 Did you have a dental visit in the last 12 months?: Yes Did you have a dental problem in the last 6 months where you did not have access to dental care?: No Was dental information given to patient?: Patient has dentist HPI HPI Comments History of Present Illness Details This is a 63-year-old male with pure hypercholesterolemia that comes today complaining of left hand pain and right hip pain that has been present for few weeks. Has full active range of motion. He also has an umbilical hernia with small bowel content and will be referred to General surgery for that matter. Had impaired glucose tolerance but A1c was normal and he denies any polyuria, polydipsia or unintentional weight loss. [facility] Medical History (Updated 02/06/24 @ 08:55 by Chloe Henry MD) Transaminitis History of colon cancer Colon cancer Numbness and tingling in left hand History of gibbs Mass of cecum Chest pain Neck pain Impaired glucose tolerance Back pain Surgical History History of colectomy Hx of hand surgery History of esophagogastroduodenoscopy (EGD) H/O colonoscopy History of varicose vein ligation and stripping History of bunionectomy History of excision of mass History of right inguinal hernia repair Family History Maternal Grandmother History of diabetes mellitus History of hypertension Mother Medical history unknown Father Medical history unknown Son No problems noted. Son No problems noted. Son No problems noted. Daughter No problems noted. Social History Household Members: Family Housing: House Are you a primary career services coordinator to a significant other at home: No Do you presently have visiting nurse or other home services: No Alcohol intake: current Alcohol intake frequency: holidays/special occasions only Alcohol type: other Patient Tobacco Use Status: Former Tobacco user e-Cigarette/Vaping Use: Never Used Second Hand Smoke Exposure: No Substance Use Type: Marijuana service: No Current occupational status: unemployed Cognitive needs: No Hearing needs: No Vision needs: No Questionnaire Thrive Questionnaire Date Thrive assessed: 09/11/23 Are you currently unemployed and looking for a job?: I choose not to answer this question MARKOS-7 AMB Questionnaire MARKOS-7 Date MARKOS - 7 assessed: 09/11/23 Source: Developed by Drs. Maciel Cobos, Tammy Forrester, Jan Wilson and colleagues, with an educational xavier from [employer]. Review of Systems Const All systems reviewed & are unremarkable except as noted in HPI and below Card Denies chest pain at rest, Denies chest pain with activity, Denies edema, Denies irregular heart rhythm, Denies claudication, Denies dyspnea, Denies dyspnea on exertion, Denies orthopnea, Denies paroxysmal nocturnal dyspnea and Denies slow heart rate Resp Denies cough, Denies dyspnea and Denies dyspnea on exertion GI Denies abdominal pain, Denies change in bowel habits, Denies excessive flatus, Denies nausea and Denies vomiting Physical exam (Primary Care) Vital Signs: Last Vital Signs BP 128/84 02/06/24 08:09 BMI result Body Mass Index 25.5 Tobacco/Smoking Status: Tobacco use Status Tobacco use date assessed 09/11/23 02/06/24 08:15 Patient Tobacco Use Status Former Tobacco user 02/06/24 08:15 e-Cigarette/Vaping Use Never Used 02/06/24 08:15 Thrive Assessment: Date of Thrive Assessment Date Thrive assessed 09/11/23 02/06/24 08:15 Resp Effort & Inspection: normal respiratory effort Auscultation: clear to auscultation bilaterally Cardio Jugular venous distension: no JVD Rate: regular rate Rhythm: regular rhythm Heart sounds: S1 normal heart sound present and S2 normal heart sound present Extrem General: Yes full ROM Office Procedures Flu Questionnaire Does the patient have a severe egg allergy?: No Results AMB Hemoglobin A1c AMB Hemoglobin A1c 5.5 % Last Edit by ELIDIA Giron on 02/06/24 08:49 Immunizations Fluarix Triv [id number] (PF) 45 mcg (15 mcg x 3)/0.5 mL IM syringe Performing Provider: Chloe Henry MD Performing Location: [facility] [place] [facility] Documented (not given) by: ELIDIA Giron on 02/06/24 08:15 Reason Not Given: Patient Refused Boostrix Tdap 2.5 Lf unit-8 mcg-5 Lf/0.5 mL intramuscular syringe Performing Provider: Chloe Henry MD Performing Location: [facility] [place] [facility] Administered by: ELIDIA Giron on 02/06/24 08:44 Dose Route Admin Location Dispensed Lot Number Expiration Date NDC [employer] 0.5 mL IM Left Deltoid 0.5 mL [id number] 01/26/25 [id number] [email or web address] VIS Given Date VIS Provided VIS Publication Date 02/06/24 Single Vaccine 20 Eligibility Eligibility Date Funding Source Not [facility] Eligible 02/06/24 Private Results Reviewed Results Reviewed: Laboratory Last Values Hgb A1c (Clinic) 5.5 % (4.0-6.0) 02/06/24 08:36 Coding Level of Care Code Est Pt Level 4 (88460) Complex EM visit Add On G2211 Diagnoses Right hip pain M25.551 Left hand pain M79.642 Umbilical hernia K42.9 Pure hypercholesterolemia E78.00 Time Spent (min) 22 Assessment & Plan Assessment & Plan (1) Right hip pain: Code(s): M25.551 - Pain in right hip Category: Medical Plan: X-ray ordered. (2) Left hand pain: Code(s): M79.642 - Pain in left hand Category: Medical Plan: X-ray ordered. (3) Umbilical hernia: Code(s): K42.9 - Umbilical hernia without obstruction or gangrene Category: Medical Plan: Referred to surgery. (4) Pure hypercholesterolemia: Code(s): E78.00 - Pure hypercholesterolemia, unspecified Category: Medical Plan: Continue statins. Orders: Orders Influenza [id number] Immunization Today Z23 - Encounter for immunization AMB Hemoglobin A1c Today R73.02 - Impaired glucose tolerance (oral) XR hip RT min 2V Today M25.551 - Pain in right hip TDaP Immunization Today Z23 - Encounter for immunization XR hand LT 2V Today M79.642 - Pain in left hand Referrals General Surgery Referral K42.9 - Umbilical hernia without obstruction or gangrene
== END 2024-02-06 08:51 | disposition home or self-care (01) ==
PROVIDERS: PCP Internal Medicine; Visit Provider Internal Medicine
DX: M25.551 Pain in right hip (principal); M79.642 Pain in left hand; K42.9 Umbilical hernia without obstruction or gangrene; E78.00 Pure hypercholesterolemia, unspecified; Z23 Encounter for immunization; R73.02 Impaired glucose tolerance (oral)

== ENCOUNTER 2024-04-05 08:01 | Outpatient (REF) | payer OTHER, SELFPAY ==
--- NOTE | ~2024-04-05 | US_ITS ---
EXAMINATION: US ABDOMEN COMPLETE CLINICAL INFORMATION: Abnormal LFTs. COMPARISON: CT abdomen and pelvis 10/17/2023. Renal ultrasound 09/20/2023. Ultrasound abdomen limited 06/24/2022. X-ray KUB 05/07/2015. TECHNIQUE: Real-time imaging of the abdominal viscera. FINDINGS: PANCREAS: Not visualized ABDOMINAL AORTA: The proximal, mid, and distal segments are normal in caliber. INFERIOR VENA CAVA: Visualized portions are normal. LIVER: The liver contour is normal. There is diffuse increased liver parenchymal echogenicity, consistent with hepatic steatosis. No focal hepatic lesion. There is no intrahepatic biliary duct dilatation seen. GALLBLADDER: The gallbladder is physiologically distended without evidence of stones, sludge, polyps, wall thickening or pericholecystic fluid. COMMON BILE DUCT: Normal in caliber measuring 0.4 cm in diameter. RIGHT KIDNEY: No hydronephrosis. No renal calculi or focal parenchymal lesions. The kidney measures 9.7 cm in maximum dimension. LEFT KIDNEY: No hydronephrosis. No renal calculi or focal parenchymal lesions. The kidney measures 9.7 cm in maximum dimension. SPLEEN: The spleen measures 10.9 cm in maximum dimension. FREE FLUID: None. US/US abdomen complete IMPRESSION: Hepatic steatosis, otherwise unremarkable abdominal ultrasound. Electronically signed by: Gwendolyn Smiley MD 04/05/2024 10:42 AM [facility]
== END 2024-04-05 08:02 | disposition home or self-care (01) ==
LOC: HO.US 08:01
PROVIDERS: PCP Internal Medicine; Visit Provider Internal Medicine
DX: K75.81 Nonalcoholic steatohepatitis (NASH) (principal)
CPT/HCPCS: 76700

== ENCOUNTER 2024-08-27 08:14 | Outpatient (REF) | payer OTHER, SELFPAY ==
[2024-08-27 08:30] LABS: MANUAL DIFF FLAG NO
[2024-08-27 09:44] LABS: Basophils Absolute Auto 0.1 X10*3/uL (0.0-0.2); Eosinophils Absolute Auto 0.4 X10*3/uL (0.0-0.4); Eosinophils Percent Auto 8.7 % (0-4); Hematocrit 41.1 % (42.0-52.0); Hemoglobin 14.3 g/dl (14.0-18.0); Imm Gran Abs Auto 0.02 X10*3/uL (0.00-0.03); Imm Gran Pct Auto 0.4 % (0.0-0.4); Lymphocytes Absolute Auto 1.3 X10*3/uL (1.2-4.9); Lymphocytes Percent Auto 27.2 % (20-40); Mean Corpuscular HGB Conc 34.8 g/dl (31.0-36.0); Mean Corpuscular Hemoglobin 31.7 pg (27.0-33.0); Mean Corpuscular Volume 91.1 fL (80.0-98.0); Mean Platelet Volume 9.5 fL (9.4-12.4); Monocytes Absolute Auto 0.4 X10*3/uL (0.1-1.2); Monocytes Percent Auto 9.1 % (2-11); Neutrophils Absolute Auto 2.6 x10*3/uL (2.0-8.3); Neutrophils Percent Auto 53.6 % (45-73); Platelet Count 238 X10*3/uL (160-400); Red Blood Count 4.51 X10*6/uL (4.60-5.80); Red Cell Distribution Width 12.7 % (11.0-16.0); White Blood Count 4.9 X10*3/uL (4.8-10.8)
[2024-08-27 10:22] LABS: Alanine Aminotransferase 79 U/L (0-40); Albumin Level 4.5 g/dL (3.5-5.0); Alkaline Phosphatase 77 U/L (39-117); Anion Gap 13 (12-20); Aspartate Amino Transferase 51 U/L (5-37); Bilirubin Total 0.4 mg/dL (0.0-1.0); Blood Urea Nitrogen 12 mg/dL (9-16); Calcium 9.1 mg/dL (8.4-10.2); Carbon Dioxide 26 mmol/L (22-29); Chloride 107 mmol/L (96-108); Cholesterol 187 mg/dL (<200); Estimated Glomerular Filt Rate > 60; Glucose Fasting 105 mg/dL (60-99); HDL Cholesterol 80 mg/dL (>40); LDL Cholesterol Calculated 91 mg/dL (<100); Potassium 4.5 mmol/L (3.3-5.1); Sodium 141 mmol/L (135-145); Total Protein 6.9 g/dL (6.5-8.0); Triglycerides 83 mg/dL (<150)
[2024-08-27 10:29] LABS: Vitamin D 25-OH Total 15.7 ng/mL (>30)
[2024-08-27 10:58] LABS: Folate 8.6 ng/mL (> or = 4.0); Vitamin B12 660 pg/mL (200-900)
== END 2024-08-27 08:15 | disposition home or self-care (01) ==
LOC: HO.LAB 08:14
PROVIDERS: PCP Internal Medicine; Visit Provider Internal Medicine
DX: M54.50 Low back pain, unspecified (principal); M21.612 Bunion of left foot; H53.8 Other visual disturbances; R07.9 Chest pain, unspecified; K42.9 Umbilical hernia without obstruction or gangrene; C18.9 Malignant neoplasm of colon, unspecified; R73.02 Impaired glucose tolerance (oral); I10 Essential (primary) hypertension; R21 Rash and other nonspecific skin eruption; E78.00 Pure hypercholesterolemia, unspecified; E53.8 Deficiency of other specified B group vitamins; E55.9 Vitamin D deficiency, unspecified
CPT/HCPCS: 36415; 80053; 80061; 82306; 82607; 82746; 85025; 96127; 99212

== ENCOUNTER 2024-08-27 08:56 | Outpatient (AMB) | payer OTHER, SELFPAY ==
--- NOTE | 2024-08-27 09:02 | A.OFFPC_ITS ---
Vital Signs 08/27/24 09:05 Height 5 ft 9 in Weight 181 lb BMI 26.7 BP 140/102 H Blood Pressure Location Lt brachial Position Sitting Intake Visit Reasons: glucose Intake Note: Patient here for a follow up Glucose Compensation And Hris Analyst Required: No Accompanied by: Self / Same As Patient Allergies tramadol Allergy (Intermediate, Verified 08/27/24 09:23) muscle cramps Medication List - Last Reconciled 08/27/24 by Chloe Henry MD atorvastatin 20 mg PO BEDTIME 90 days cyanocobalamin (vitamin B-12) (Vitamin B-12) 1,000 mcg PO DAILY cyclobenzaprine 10 mg PO BEDTIME PRN 90 days ibuprofen 600 mg PO TID PRN 30 days trazodone 50 mg PO BEDTIME PRN 90 days Tobacco use date assessed: 08/27/24 Dental Screening Dental Screen Date: 08/27/24 Did you have a dental visit in the last 12 months?: Yes Did you have a dental problem in the last 6 months where you did not have access to dental care?: No Was dental information given to patient?: Patient has dentist HPI HPI Comments History of Present Illness Details The patient is a 64-year-old male presenting with a follow-up for multiple chronic conditions and symptom evaluation. Essential hypertension has been a concern, yet the patient is not currently treated with antihypertensive medication. Acute issues stem from chronic low back pain potentially linked to previous surgery for hernia repairs done about 23 years ago, suspected of complications with mesh. He is also contending with insomnia for which Trazodone is used. A history of type 2 diabetes mellitus was confirmed after initially being diagnosed with prediabetes. Colonoscopic surveillance has been part of his management following tubular adenoma removal in August 2022. Fatty liver disease has been identified, with minimal elevation of liver enzymes but without major abnormalities beyond hepatic steatosis. Reassessment of the liver condition is pending further blood test results currently in process. [facility] Medical History (Updated 08/27/24 @ 10:01 by Chloe Henry MD) Transaminitis History of colon cancer Colon cancer Numbness and tingling in left hand History of gibbs Mass of cecum Chest pain Neck pain Impaired glucose tolerance Back pain Surgical History History of colectomy Hx of hand surgery History of esophagogastroduodenoscopy (EGD) H/O colonoscopy History of varicose vein ligation and stripping History of bunionectomy History of excision of mass History of right inguinal hernia repair Family History Maternal Grandmother History of diabetes mellitus History of hypertension Mother Medical history unknown Father Medical history unknown Son No problems noted. Son No problems noted. Son No problems noted. Daughter No problems noted. Social History Household Members: Family Housing: House Are you a primary career based intervention coordinator to a significant other at home: No Do you presently have visiting nurse or other home services: No Alcohol intake: current Alcohol intake frequency: holidays/special occasions only Alcohol type: other Patient Tobacco Use Status: Former Tobacco user e-Cigarette/Vaping Use: Never Used Second Hand Smoke Exposure: No Substance Use Type: Marijuana service: No Current occupational status: unemployed Cognitive needs: No Hearing needs: No Vision needs: No Questionnaire PHQ-9 Over the last 2 weeks, how often have you been bothered by any of the following problems? 1. Little interest or pleasure in doing things: not at all 2. Feeling down, depressed, or hopeless: not at all 3. Trouble falling or staying asleep, or sleeping too much: not at all 4. Feeling tired or having little energy: not at all 5. Poor appetite or overeating: not at all 6. Feeling bad about yourself - or that you are a failure or have let yourself or your family down: not at all 7. Trouble concentrating on things, such as reading the newspaper or watching television: not at all 8. Moving or speaking so slowly that other people could have noticed. Or the opposite - being so fidgety or restless that you have been moving around a lot more than usual: not at all 9. Thoughts that you would be better off or of hurting yourself in some way: not at all Total score: 0 Depression Screening Interpretation: Negative Depression Screening Done: Yes 45364 - PHQ-9 Billing: Yes Source: Developed by Drs. Maciel Cobos, Tammy Forrester, Jan Wilson and colleagues, with an educational xavier from [employer]. Thrive Questionnaire Date Thrive assessed: 08/27/24 I am a: Patient What is your living situation today?: I have a steady place to live Within the past 12 months, did the food you bought not last and you didn't have the money to get more?: Never true Within the past 12 months, did you worry whether your food would run out before you got money to buy more?: Never true Do you have trouble paying for medicines?: No Do you have trouble getting transportation to medical appointments?: No Do you have trouble paying your heating and electricity bill?: No Do you have trouble taking care of your child, family member or friend?: No Do you have trouble with day-to-day activities such as bathing, preparing meals, shopping, managing finances, etc.?: No Are you currently unemployed and looking for a job?: I choose not to answer this question Are you interested in more education?: No Please select the resources that you would like help with: None Currently or been in a relationship where the following occur: No concerns reported THRIVE Score: 0 AUDIT C Alcohol Use Questionnaire (AUDIT-C) 1. How often do you have a drink containing alcohol?: 2-4 times a month 2. How many drinks containing alcohol do you have on a typical day when you are drinking?: 1 or 2 3. How often do you have six or more drinks on one occasion?: Never Total Score: 2 Score Reviewed/Action Taken: No MARKOS-7 AMB Questionnaire MARKOS-7 Date MARKOS - 7 assessed: 08/27/24 Feeling nervous, anxious, or on edge: 0 = Not at all Not being able to stop or control worryin = Not at all Worrying too much about different things: 0 = Not at all Trouble relaxin = Not at all Being so restless that it is hard to sit still: 0 = Not at all Becoming easily annoyed or irritable: 0 = Not at all Feeling afraid as if something awful might happen: 0 = Not at all Total MARKOS-7 score (0-4 normal; 5-9 mild; 10-14 moderate; 15-21 severe): 0 Source: Developed by Drs. Maciel Cobos, Tammy Forrester, Jan Wilson and colleagues, with an educational xavier from [employer]. MARKOS-7 Assessment Billing MARKOS-7 Assessment Tool: MARKOS-7 Assessment 95385 Review of Systems Const All systems reviewed & are unremarkable except as noted in HPI and below Card Denies chest pain at rest, Denies chest pain with activity, Denies edema, Denies irregular heart rhythm, Denies claudication, Denies dyspnea, Denies dyspnea on exertion, Denies orthopnea, Denies paroxysmal nocturnal dyspnea and Denies slow heart rate Resp Denies cough, Denies dyspnea and Denies dyspnea on exertion GI Denies abdominal pain, Denies change in bowel habits, Denies excessive flatus, Denies nausea and Denies vomiting Denies urinary hesitancy, Denies urinary incontinence and Denies urinary urgency Musc Denies atrophy, Denies deformity and Denies limited range of motion Physical exam (Primary Care) Vital Signs: Last Vital Signs BP 140/102 H 08/27/24 09:05 BMI result Body Mass Index 26.7 Tobacco/Smoking Status: Tobacco use Status Tobacco use date assessed 08/27/24 08/27/24 09:09 Patient Tobacco Use Status Former Tobacco user 08/27/24 09:09 e-Cigarette/Vaping Use Never Used 08/27/24 09:09 PHQ-9: PHQ-9 Score PHQ-9: Total score 0 08/27/24 09:26 Depression Screening Interpretation: Negative Thrive Assessment: Date of Thrive Assessment Date Thrive assessed 08/27/24 08/27/24 09:09 Currently or been in a relationship where the following occur: No concerns reported Resp Effort & Inspection: normal respiratory effort Auscultation: clear to auscultation bilaterally Cardio Jugular venous distension: no JVD Rate: regular rate Rhythm: regular rhythm Heart sounds: S1 normal heart sound present and S2 normal heart sound present Extrem Other: left foot bunion General: Yes full ROM Coding Level of Care Code Est Pt Level 4 (11051) Complex EM visit Add On G2211 Diagnoses Lumbar pain M54.50 Bunion, left foot M21.612 Blurry vision H53.8 Chest pain R07.9 Umbilical hernia K42.9 Colon cancer C18.9 Impaired glucose tolerance R73.02 Essential hypertension I10 Additional Codes MARKOS-7 Assessment Billing - MARKOS-7 Assessment Tool: MARKOS-7 Assessment 58325 ([id number]) PHQ-9 - 31019 - PHQ-9 Billing: Yes ([id number]) Time Spent (min) 23 Assessment & Plan Assessment & Plan (1) Lumbar pain: Code(s): M54.50 - Low back pain, unspecified Category: Medical (2) Bunion, left foot: Code(s): M21.612 - Bunion of left foot Category: Medical (3) Blurry vision: Code(s): H53.8 - Other visual disturbances Category: Medical (4) Chest pain: Code(s): R07.9 - Chest pain, unspecified Category: Medical (5) Umbilical hernia: Code(s): K42.9 - Umbilical hernia without obstruction or gangrene Category: Medical (6) Colon cancer: Code(s): C18.9 - Malignant neoplasm of colon, unspecified Category: Medical (7) Impaired glucose tolerance: Code(s): R73.02 - Impaired glucose tolerance (oral) Category: Medical (8) Essential hypertension: Code(s): I10 - Essential (primary) hypertension Category: Medical Plan Plans are established focusing on managing essential hypertension with a new prescription for an antihypertensive. Chronic low back pain assessment includes a planned x-ray to evaluate potential post-surgical hernia re-occurrence. Arrangements for further colonoscopy due for surveillance of previous adenomatous polyps are confirmed, considering adenoma findings. An EKG will be conducted alongside surgical consultation to evaluate hernia recurrence symptoms. Insomnia will continue to be managed with Trazodone, supporting sleep improvement. The patient was advised of referrals for ophthalmology for vision correction and podiatry for left foot bunion discomfort. Fatty liver disease results pending in the current assessment will inform further treatment direction. Patient was informed and verbally consented to the use of an ambient scribe for clinic note documentation during this visit. I discussed with the patient the importance of initiating treatment for hypertension to prevent cardiovascular complications. We addressed his chronic pains, agreeing on imaging with an x-ray and surgical consultation. The necessity of timely follow-up colonoscopy was emphasized due to adenomas. Evaluation with EKG is planned to monitor cardiac health given recent complaints. Trazodone will continue for insomnia management. Referrals to ophthalmology and podiatry will address specific visual and orthopedic concerns. Anticipatory guidance was provided on managing fatty liver once pending results are reviewed. Orders: Orders ECG 12 lead EKG Today R07.9 - Chest pain, unspecified XR lumbar spine 2-3V Today M54.50 - Low back pain, unspecified Referrals Podiatry Referral M21.612 - Bunion of left foot General Surgery Referral K42.9 - Umbilical hernia without obstruction or gangrene Ophthalmology Referral H53.8 - Other visual disturbances Medications: New losartan 25 mg PO DAILY 90 tabs 0RF 90 days Patient Instructions: - Take new blood pressure medication as prescribed. - Schedule and attend the planned x-ray and EKG appointments. - Follow up with surgical consultation regarding hernia concerns. - Continue Trazodone for insomnia. - Receive referrals for vision and foot evaluations with ophthalmologists and podiatrists. - Await liver test results and follow further guidance once available.
[2024-08-27 09:05] VITALS: BP 140/102; BMI 26.7
== END 2024-08-27 09:37 | disposition home or self-care (01) ==
LOC: HO.HMCH 08:57
PROVIDERS: PCP Internal Medicine; Visit Provider Internal Medicine
DX: M54.50 Low back pain, unspecified (principal); C18.9 Malignant neoplasm of colon, unspecified; M21.612 Bunion of left foot; H53.8 Other visual disturbances; R07.9 Chest pain, unspecified; K42.9 Umbilical hernia without obstruction or gangrene; R73.02 Impaired glucose tolerance (oral); I10 Essential (primary) hypertension

== ENCOUNTER 2024-09-16 06:34 | Outpatient (REF) | payer OTHER, SELFPAY ==
--- NOTE | ~2024-09-16 | XR_ITS ---
CLINICAL HISTORY: M54.50 - Low back pain, unspecified 3 views lumbar spine Comparison: None Findings: Normal vertebral body alignment. No acute fractures or dislocation. There is multilevel degenerative disc disease with disc space narrowing seen particularly at the L2-3, L4-5 and L5-S1 levels. IMPRESSION: There is multilevel degenerative disc disease with disc space narrowing seen particularly at the L2-3, L4-5 and L5-S1 levels. This document has been electronically signed by: Adam Vela MD on 09/16/2024 09:34:37
--- NOTE | 2024-09-16 07:41 | ECG_ITS ---
Test Reason : cp Blood Pressure : */* mmHG Vent. Rate : 54 BPM Atrial Rate : 54 BPM P-R Int : 156 ms QRS Dur : 100 ms QT Int : 404 ms P-R-T Axes : -3 -29 15 degrees QTcB Int : 383 ms Sinus bradycardia Otherwise normal ECG When compared with ECG of 22-Jul-2022 13:29, Premature ventricular complexes are no longer Present Referred By: Chloe Henry Electronically Signed By: Ronak Mirza
[2024-09-16 07:54] LABS: Alanine Aminotransferase 43 U/L (0-40); Albumin Level 4.4 g/dL (3.5-5.0); Alkaline Phosphatase 72 U/L (39-117); Anion Gap 12 (12-20); Aspartate Amino Transferase 34 U/L (5-37); Bilirubin Total 0.5 mg/dL (0.0-1.0); Blood Urea Nitrogen 19 mg/dL (9-16); Calcium 9.3 mg/dL (8.4-10.2); Carbon Dioxide 26 mmol/L (22-29); Chloride 109 mmol/L (96-108); Cholesterol 198 mg/dL (<200); Estimated Glomerular Filt Rate > 60; Glucose Random 104 mg/dL (60-115); HDL Cholesterol 77 mg/dL (>40); LDL Cholesterol Calculated 101 mg/dL (<100); Potassium 4.6 mmol/L (3.3-5.1); Sodium 142 mmol/L (135-145); Total Protein 6.9 g/dL (6.5-8.0); Triglycerides 103 mg/dL (<150)
== END 2024-09-16 06:35 | disposition home or self-care (01) ==
LOC: HO.XRAY 06:34
PROVIDERS: PCP Internal Medicine; Visit Provider Internal Medicine
DX: E78.5 Hyperlipidemia, unspecified (principal); R73.02 Impaired glucose tolerance (oral); M54.50 Low back pain, unspecified; R07.9 Chest pain, unspecified; R00.1 Bradycardia, unspecified
CPT/HCPCS: 36415; 72100; 80053; 80061; 93005

== ENCOUNTER → 2024-09-16 06:48 | Outpatient (BNV) | payer OTHER, SELFPAY | PROVIDERS: PCP Internal Medicine; Visit Provider Radiology Diagnostic Radiology | DX: M51.360 Other intervertebral disc degeneration, lumbar region with discogenic back pain only (principal) | CPT/HCPCS: 72100 ==

== ENCOUNTER → 2024-09-16 07:41 | Outpatient (BNV) | payer OTHER, SELFPAY | PROVIDERS: PCP Internal Medicine; Visit Provider Internal Medicine Cardiovascular Disease | DX: R00.1 Bradycardia, unspecified (principal) | CPT/HCPCS: 93010 ==

== ENCOUNTER 2024-09-17 08:02 | Outpatient (AMB) | payer OTHER, SELFPAY ==
--- NOTE | 2024-09-17 08:29 | MHC.PC.OV ---
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 Required: No Accompanied by: Self / Same As Patient Allergies tramadol Allergy (Intermediate, Verified 09/17/24 09:01) muscle cramps Medication List - Last Reconciled 09/17/24 by Chloe Henry MD atorvastatin 20 mg PO BEDTIME 90 days cholecalciferol (vitamin D3) 50 mcg PO DAILY 90 days cyanocobalamin (vitamin B-12) (Vitamin B-12) 1,000 mcg PO DAILY cyclobenzaprine 10 mg PO BEDTIME PRN 90 days ibuprofen 600 mg PO TID PRN 30 days losartan 25 mg PO DAILY 90 days trazodone 50 mg PO BEDTIME PRN 90 days Tobacco use date assessed: 08/27/24 Dental Screening Dental Screen Date: 08/27/24 HPI HPI Comments History of Present Illness Details The patient is a 64-year-old male presenting for his physical exam with concerns of elevated blood pressure, potential hernia recurrence, neck swelling, and chronic back pain. He has a past medical history of colon cancer treated with colectomy and reports undergoing the last colonoscopy in 2022. His blood pressure today was noted to be high, and he uses losartan 25 mg daily, reporting some blurry vision and pressure associated with this condition. The patient has a history of lumbar radiculopathy causing ongoing back pain and mentions feeling something terri to an inguinal hernia recurrence, as he experiences discomfort on both sides. He reports cervical lymphadenopathy with neck swelling and discomfort during swallowing, prompting consideration for further evaluation. He is receiving treatment for vitamin D deficiency but still reports experiencing fatigue. His hyperlipidemia is managed with atorvastatin taken nightly. Depression is acknowledged, particularly because it relates to stress over his health status. - Colonoscopy last performed in 2022 for colon cancer surveillance - Tdap vaccination status confirmed as up to date - Regular monitoring and management of hyperlipidemia - Vitamin D supplementation advised; current Vitamin D level noted as low - Blood pressure monitoring with ongoing assessment necessitating adjustment of losartan dosage PFSH Medical History Transaminitis History of colon cancer Colon cancer Numbness and tingling in left hand History of gibbs Mass of cecum Chest pain Neck pain Impaired glucose tolerance Back pain Surgical History History of colectomy Hx of hand surgery History of esophagogastroduodenoscopy (EGD) H/O colonoscopy History of varicose vein ligation and stripping History of bunionectomy History of excision of mass History of right inguinal hernia repair Family History Maternal Grandmother History of diabetes mellitus History of hypertension Mother Medical history unknown Father Medical history unknown Son No problems noted. Son No problems noted. Son No problems noted. Daughter No problems noted. Social History Household Members: Family Housing: House Are you a primary pharmacy customer care specialist to a significant other at home: No Do you presently have visiting nurse or other home services: No Alcohol intake: current Alcohol intake frequency: holidays/special occasions only Alcohol type: other Patient Tobacco Use Status: Former Tobacco user e-Cigarette/Vaping Use: Never Used Second Hand Smoke Exposure: No Substance Use Type: Marijuana service: No Current occupational status: unemployed Cognitive needs: No Hearing needs: No Vision needs: No Questionnaire PHQ-9 Over the last 2 weeks, how often have you been bothered by any of the following problems? 1. Little interest or pleasure in doing things: several days 2. Feeling down, depressed, or hopeless: not at all 3. Trouble falling or staying asleep, or sleeping too much: several days 4. Feeling tired or having little energy: nearly every day 5. Poor appetite or overeating: not at all 6. Feeling bad about yourself - or that you are a failure or have let yourself or your family down: not at all 7. Trouble concentrating on things, such as reading the newspaper or watching television: not at all 8. Moving or speaking so slowly that other people could have noticed. Or the opposite - being so fidgety or restless that you have been moving around a lot more than usual: not at all 9. Thoughts that you would be better off or of hurting yourself in some way: not at all Total score: 5 Depression Screening Interpretation: Positive Depression Screening Follow-up: Existing condition and Follow-up Visit Requested Depression Screening Done: Yes 72951 - PHQ-9 Billing: Yes Source: Developed by Drs. Maciel Cobos, Tammy Forrester, Jan Wilson and colleagues, with an educational xavier from [employer]. Thrive Questionnaire Date Thrive assessed: 08/27/24 I am a: Patient What is your living situation today?: I have a steady place to live Within the past 12 months, did the food you bought not last and you didn't have the money to get more?: Never true Within the past 12 months, did you worry whether your food would run out before you got money to buy more?: Never true Do you have trouble paying for medicines?: No Do you have trouble getting transportation to medical appointments?: No Do you have trouble paying your heating and electricity bill?: No Do you have trouble taking care of your child, family member or friend?: No Do you have trouble with day-to-day activities such as bathing, preparing meals, shopping, managing finances, etc.?: No Are you currently unemployed and looking for a job?: I choose not to answer this question Are you interested in more education?: I choose not to answer this question Please select the resources that you would like help with: None Currently or been in a relationship where the following occur: No concerns reported THRIVE Score: 0 AUDIT C Alcohol Use Questionnaire (AUDIT-C) 1. How often do you have a drink containing alcohol?: 2-4 times a month 2. How many drinks containing alcohol do you have on a typical day when you are drinking?: 1 or 2 3. How often do you have six or more drinks on one occasion?: Never Total Score: 2 MARKOS-7 AMB Questionnaire MARKOS-7 Date MARKOS - 7 assessed: 08/27/24 Feeling nervous, anxious, or on edge: 0 = Not at all Not being able to stop or control worryin = Not at all Worrying too much about different things: 0 = Not at all Trouble relaxin = Several days Being so restless that it is hard to sit still: 0 = Not at all Becoming easily annoyed or irritable: 0 = Not at all Feeling afraid as if something awful might happen: 0 = Not at all Total MARKOS-7 score (0-4 normal; 5-9 mild; 10-14 moderate; 15-21 severe): 1 Source: Developed by Drs. Maciel Cobos, Tammy Forrester, Jan Wilson and colleagues, with an educational xavier from [employer]. MARKOS-7 Assessment Billing MARKOS-7 Assessment Tool: MARKOS-7 Assessment 60616 Review of Systems Const All systems reviewed & are unremarkable except as noted in HPI and below Card Denies chest pain at rest, Denies chest pain with activity, Denies edema, Denies irregular heart rhythm, Denies claudication, Denies dyspnea, Denies dyspnea on exertion, Denies orthopnea, Denies paroxysmal nocturnal dyspnea and Denies slow heart rate Resp Denies cough, Denies dyspnea and Denies dyspnea on exertion GI Denies abdominal pain, Denies change in bowel habits, Denies excessive flatus, Denies nausea and Denies vomiting Musc Denies abnormal gait, Denies atrophy, Denies deformity and Denies limited range of motion Neuro Denies abnormal gait, Denies behavioral changes and Denies lack of coordination Psych Denies behavioral changes Physical exam (Primary Care) Vital Signs: Last Vital Signs BP 140/90 H 09/17/24 08:31 BMI result Body Mass Index 27.0 Tobacco/Smoking Status: Tobacco use Status Tobacco use date assessed 08/27/24 09/17/24 08:35 Patient Tobacco Use Status Former Tobacco user 09/17/24 08:35 e-Cigarette/Vaping Use Never Used 09/17/24 08:35 PHQ-9: PHQ-9 Score PHQ-9: Total score 5 09/17/24 09:04 Depression Screening Interpretation: Positive Depression Screening Follow-up: Existing condition and Follow-up Visit Requested Thrive Assessment: Date of Thrive Assessment Date Thrive assessed 08/27/24 09/17/24 08:35 Currently or been in a relationship where the following occur: No concerns reported HENMT Head: Yes normal to inspection, Yes normocephalic and Yes atraumatic Ears: external ears normal Eyes General: appearance normal, both eyes and all related structures Eyelids: Yes eyelids normal Conjunctivae: conjunctivae normal Neck Neck: Yes normal visual inspection and Yes supple Resp Effort & Inspection: normal respiratory effort Auscultation: clear to auscultation bilaterally Cardio Jugular venous distension: no JVD Rate: regular rate Rhythm: regular rhythm Heart sounds: S1 normal heart sound present and S2 normal heart sound present GI Inspection: Yes normal to inspection Palpation (GI): Soft to palpation and nontender Auscultation: normal bowel sounds Skin General skin exam: no rashes or lesions noted Neuro General: no focal motor deficits Extrem General: Yes full ROM Psych Appearance: grossly normal Coding Level of Care Code Est Pt Level 3 (22160) Est Pt Prev Care 40-64y(07788) Diagnoses Physical exam Z00.00 Mild recurrent major depression F33.0 Cervical lymphadenopathy R59.0 Lumbar radiculopathy M54.16 Additional Codes MARKOS-7 Assessment Billing - MARKOS-7 Assessment Tool: MARKOS-7 Assessment 32309 ([id number]) PHQ-9 - 76602 - PHQ-9 Billing: Yes ([id number]) Time Spent (min) 35 Assessment & Plan Assessment & Plan (1) Physical exam: Code(s): Z00.00 - Encounter for general adult medical examination without abnormal findings Category: Medical (2) Mild recurrent major depression: Code(s): F33.0 - Major depressive disorder, recurrent, mild Category: Medical (3) Cervical lymphadenopathy: Code(s): R59.0 - Localized enlarged lymph nodes Category: Medical (4) Lumbar radiculopathy: Code(s): M54.16 - Radiculopathy, lumbar region Category: Medical Plan The management focuses on addressing elevated blood pressure by increasing losartan dosage to 50 mg daily, thereby anticipating improved blood pressure control and mitigation of associated symptoms like blurred vision. Referral to orthopedic services for lumbar radiculopathy is initiated for specialized management. Cervical lymphadenopathy will be evaluated via ultrasonography to understand the cause of neck swelling and swallowing discomfort. For the suspected inguinal hernia recurrence, possible imaging such as a CT scan of the abdomen/pelvis is being considered, linked to past surgical repair. Maintaining ongoing atorvastatin therapy manages hyperlipidemia. Continuous vitamin D supplementation is recommended, addressing persistent tiredness likely owed to deficiency. Monitoring and evaluation concerning health-related depression are acknowledged as important for future health interventions. Patient was informed and verbally consented to the use of an ambient scribe for clinic note documentation during this visit. During this visit, discussions with the patient covered management plans for blood pressure, including a change in losartan dosage to address elevated levels and associated symptoms. The patient received instruction on lifestyle adjustments, specifically in relation to diet and consistent medication adherence. The potential recurrence of an inguinal hernia and cervical lymphadenopathy was elaborated on, with referrals and diagnostics planned to ascertain diagnosis and management. Furthermore, dialog around vitamin D deficiency highlighted continuation of supplements to relieve fatigue. The patient was counseled on managing hyperlipidemia and stress linked to depression, ensuring comprehensive care remains top priority. Orders: Orders US soft tiss head and/or neck Today R59.0 - Localized enlarged lymph nodes Referrals Orthopedics Referral M54.16 - Radiculopathy, lumbar region Medications: New losartan 50 mg PO DAILY 90 tabs 1RF 90 days Discontinued losartan Discontinued Reason: Patient Completed Course 25 mg PO DAILY 90 days 90 tabs 0RF Patient Instructions: - Increase losartan to 50 mg daily as discussed - Follow up with orthopedic services for back pain management - Maintain atorvastatin 20 mg at bedtime for cholesterol - Continue vitamin D supplementation as advised - Schedule an ultrasound for neck evaluation - Monitor for any new or worsening symptoms, and return for assessment as needed
[2024-09-17 08:31] VITALS: BP 140/90; BMI 27.0
== END 2024-09-17 09:17 | disposition home or self-care (01) ==
LOC: HO.HMCH 08:03
PROVIDERS: PCP Internal Medicine; Visit Provider Internal Medicine
DX: Z00.00 Encounter for general adult medical examination without abnormal findings (principal); R59.0 Localized enlarged lymph nodes; F33.0 Major depressive disorder, recurrent, mild; M54.16 Radiculopathy, lumbar region

== ENCOUNTER → 2024-09-17 08:02 | Outpatient (BNVA) | payer OTHER, SELFPAY | PROVIDERS: PCP Internal Medicine; Visit Provider Internal Medicine | DX: Z00.00 Encounter for general adult medical examination without abnormal findings (principal); E55.9 Vitamin D deficiency, unspecified; F33.0 Major depressive disorder, recurrent, mild; R59.0 Localized enlarged lymph nodes; M54.16 Radiculopathy, lumbar region | CPT/HCPCS: 96127; 99212; 99396 ==

== ENCOUNTER 2024-10-09 09:18 | Outpatient (REF) | payer OTHER, SELFPAY ==
--- NOTE | ~2024-10-09 | XR_ITS ---
CLINICAL HISTORY: M79.642 - Pain in left hand 4 view left hand Comparison: None Findings: Mild 1st carpometacarpal osteoarthritis with small adjacent ossicle. Punctate radiopaque density adjacent to the 4th PIP joint may be a foreign body. No acute fracture or dislocation. No erosions. IMPRESSION: Mild 1st carpometacarpal osteoarthritis. Punctate radiopaque density adjacent to the 4th PIP joint may be a foreign body. This document has been electronically signed by: Trey Kingston MD on 10/09/2024 22:24:03
--- NOTE | ~2024-10-09 | XR_ITS ---
CLINICAL HISTORY: M54.2 - Cervicalgia 3 views cervical spine Comparison: None Findings: Straightening of the cervical spine is likely positional. Moderate degenerative disc disease from C4-C5 through C6-C7 with disc space narrowing and endplate osteophyte formation. Mild bilateral facet arthropathy at these levels. Prevertebral soft tissues within normal limits. No acute fracture or listhesis. IMPRESSION: 1. No acute osseous injury. 2. Moderate degenerative disc disease from C4-C5 through C6-C7 with disc space narrowing and endplate osteophyte formation. Mild bilateral facet arthropathy at these levels. This document has been electronically signed by: Trey Kingston MD on 10/09/2024 22:21:33
--- OUTSIDE RECORDS SUMMARY | 2024-10-09 09:59 | XMS_ITS | Clinical Summary ---
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 Name Role Phone Chloe Henry MD Primary Care Provider [phone] Social History Tobacco Use Types Packs/Day Years Used Date Smoking Tobacco: Never Assessed Sex and Gender Information Value Date Recorded Sex Assigned at Not on file Legal Sex Male 9:21 AM EDT Gender Identity Not on file Sexual Orientation Not on file Plan of Treatment Upcoming Encounters Date Type Department Care Team ([facility] st Contact Info) Description 11/28/2024 9:15 AM EDT Office Visit Orthopedic Surgery - [place] [id number] [phone] Dedrick Beltran DPM [address] [address] Health Maintenance Due Date Last Done Comments DTaP,Tdap,and Td Vaccines (1 - Tdap) 1981 Pneumococcal Vaccine: 50+ Ye ars (1 of 1 - PCV) 2012 Zoster Vaccines (1 of 2) 2012 COVID-19 Vaccine ( - 2023-2 5 season) 2023 Cholesterol Screening (Lipid Panel) 09/07/2024 Colorectal Cancer Screening: Colonoscopy 09/07/2024 Depression Screening 09/07/2024 HIV Screening 09/07/2024 Hepatitis C Screening 09/07/2024 Social Influencers of Health Screening 09/07/2024 Influenza Vaccine (Season Ended) 2024 RSV Immunization Adult Patie nts (1 - 1-dose 75+ series) 2037 HIB Vaccines Aged Out No longer eligi ble based on patient's age to complete this topic HPV Vaccines Aged Out No longer eligi ble based on patient's age to complete this topic Hepatitis A Vaccines Aged Out No long er eligible based on patient's age to complete this topic Hepatitis B Vaccines Aged Out No long er eligible based on patient's age to complete this topic IPV Vaccines Aged Out No longer eligi ble based on patient's age to complete this topic MMR Vaccines Aged Out No longer eligi ble based on patient's age to complete this topic Meningococcal ACWY Vaccine Aged Out N o longer eligible based on patient's age to complete this topic Meningococcal B Vaccine Aged Out No l onger eligible based on patient's age to complete this topic Pneumococcal Vaccine: Pediat rics (0 to 5 Years) and At-Risk Patients (6 to 64 Years) Aged Out No longer eligible b ased on patient's age to complete this topic RSV Immunization Patients Un nikki 20 months Aged Out No longer eligible b ased on patient's age to complete this topic Varicella Vaccines Aged Out No longer eligible based on patient's age to complete this topic Insurance [facility] Care Teams Beveling Machine Operator Relationship Specialty Start Date End Date Chloe Henry MD [address] [place] [address] , [address] [facility] D/B/A: [facility] In Internal Medicine ADRY Benz PCP - General Internal Medicine 09/07/24
== END 2024-10-09 09:19 | disposition home or self-care (01) ==
LOC: HO.XRAY 09:18
PROVIDERS: PCP Internal Medicine; Visit Provider Internal Medicine
DX: M54.2 Cervicalgia (principal); M79.642 Pain in left hand
CPT/HCPCS: 72040; 73120

== ENCOUNTER → 2024-10-09 09:22 | Outpatient (BNV) | payer OTHER, SELFPAY | PROVIDERS: PCP Internal Medicine; Visit Provider Radiology Diagnostic Radiology | DX: M50.321 Other cervical disc degeneration at C4-C5 level (principal); M50.323 Other cervical disc degeneration at C6-C7 level; M48.02 Spinal stenosis, cervical region; M25.78 Osteophyte, vertebrae; M25.842 Other specified joint disorders, left hand | CPT/HCPCS: 72040; 73120 ==

== ENCOUNTER 2024-10-21 12:48 | Outpatient (REF) | payer OTHER, SELFPAY ==
--- NOTE | ~2024-10-21 | US_ITS ---
EXAMINATION: US SOFT TISSUE HEAD AND NECK. LIMITED. CLINICAL INFORMATION: Cervical lymphadenopathy. COMPARISON: None available. TECHNIQUE: Real-time ultrasound of the region of concern using grayscale and color Doppler technique with a linear transducer. FINDINGS: Right submandibular gland demonstrated no gross masses or gross calcifications. There are nonspecific prominent less than 1.5 cm lymph nodes with a fatty hilum. US/US soft tiss head and/or neck IMPRESSION: Negative for masses or fluid collections or gross lymphadenopathy.. Electronically signed by: Jonah Douglass MD 10/21/2024 02:44 PM EDT
--- NOTE | ~2024-10-21 | XR_ITS ---
EXAMINATION: XR CHEST CLINICAL INFORMATION: Surveillance for h/o colon cancer COMPARISON: August 08, 2022. Correlated to CT chest dated August 17, 2022 demonstrated less than 2 mm pulmonary nodules. TECHNIQUE: 2 views of the chest were obtained. FINDINGS: No consolidation pleural effusion or pneumothorax. No hyperinflation. Cardiomediastinal silhouette size is normal. Multilevel spondylosis. S-shaped curvature of the thoracolumbar spine. XR/XR chest 2V IMPRESSION: No acute airspace disease. Pulmonary nodules not no acute detected by x-ray. Electronically signed by: Jonah Douglass MD 10/21/2024 02:22 PM EDT
--- OUTSIDE RECORDS SUMMARY | 2024-10-21 14:09 | XMS_ITS | Clinical Summary ---
Author Organization 175 [facility] Address [address] [place] [address] Phone Care Team Providers Care Radio Assembler Name Role Phone Chloe Henry MD Primary Care Provider [phone] Social History Tobacco Use Types Packs/Day Years Used Date Smoking Tobacco: Never Assessed Sex and Gender Information Value Date Recorded Sex Assigned at Not on file Legal Sex Male 9:21 AM EDT Gender Identity Not on file Sexual Orientation Not on file Plan of Treatment Upcoming Encounters Date Type Department Care Team ([facility] st Contact Info) Description 11/28/2024 9:15 AM EDT Office Visit Orthopedic Surgery - [place] [id number] [phone] Dedrick Beltran DPM [address] [address] Health Maintenance Due Date Last Done Comments [...] patient's age to complete this topic Insurance [facility] [employer] Care Teams Radio Assembler Relationship Specialty Start Date End Date Chloe Henry MD [address] [place] [address] , [address] [facility]ician Associ D/B/A: Tuyet Maldonadoatipoonam In Internal Medicine ADRY Benz PCP - General Internal Medicine 09/07/24
== END 2024-10-21 12:49 | disposition home or self-care (01) ==
LOC: HO.US 12:48
PROVIDERS: PCP Internal Medicine; Referring Provider Internal Medicine; Visit Provider Internal Medicine
DX: C18.9 Malignant neoplasm of colon, unspecified (principal); R59.0 Localized enlarged lymph nodes; K42.9 Umbilical hernia without obstruction or gangrene
CPT/HCPCS: 71046; 76536; 99212

== ENCOUNTER → 2024-10-21 12:52 | Outpatient (BNV) | payer OTHER, SELFPAY | PROVIDERS: PCP Internal Medicine; Referring Provider Internal Medicine; Visit Provider Radiology Diagnostic Radiology | DX: R59.0 Localized enlarged lymph nodes (principal); R91.8 Other nonspecific abnormal finding of lung field | CPT/HCPCS: 71046; 76536 ==

== ENCOUNTER 2024-10-21 13:15 | Outpatient (AMB) | payer OTHER, SELFPAY ==
--- NOTE | 2024-10-21 13:20 | A.OFFVIS_ITS ---
Vital Signs 10/21/24 13:29 Height 5 ft 9 in Weight 184 lb BMI 27.2 BP 142/88 H Blood Pressure Location Lt brachial Position Sitting Pulse 76 Intake Visit Reasons: Hernia Intake Note: Patient referred by pcp Dr. Duncan Henry for Umbilical hernia. Hx of Rt inguinal hernia repair in 2000. Patient c/o: bothersomome, bulges out. Instructional Leader Required: No Accompanied by: Self / Same As Patient Allergies tramadol Allergy (Intermediate, Verified 10/21/24 13:27) muscle cramps HPI HPI Hernia: Details: 64-year-old male referred for a hernia. He says that he has had this bulge on his abdominal wall for a long time. He does have a history of having hand assisted laparoscopic resection of the right colon for a T3 N0 adenocarcinoma of the cecum 2020. He denies GI complaints. He follows Dr. Schmidt of Oncology closely. He says he is doing very well overall. [facility] Medical History Transaminitis History of colon cancer Colon cancer Numbness and tingling in left hand History of gibbs Mass of cecum Chest pain Neck pain Impaired glucose tolerance Back pain Surgical History History of colectomy Hx of hand surgery History of esophagogastroduodenoscopy (EGD) H/O colonoscopy History of varicose vein ligation and stripping History of bunionectomy History of excision of mass History of right inguinal hernia repair Family History Maternal Grandmother History of diabetes mellitus History of hypertension Mother Medical history unknown Father Medical history unknown Son No problems noted. Son No problems noted. Son No problems noted. Daughter No problems noted. Social History Household Members: Family Housing: House Are you a primary personal care home administrator to a significant other at home: No Do you presently have visiting nurse or other home services: No Alcohol intake: current Alcohol intake frequency: holidays/special occasions only Alcohol type: other Patient Tobacco Use Status: Former Tobacco user e-Cigarette/Vaping Use: Never Used Second Hand Smoke Exposure: No Substance Use Type: Marijuana service: No Current occupational status: unemployed Cognitive needs: No Hearing needs: No Vision needs: No Review of Systems Const Denies chills and Denies fever(s) Card Denies chest pain, Denies dyspnea and Denies dyspnea on exertion Resp Denies cough, Denies dyspnea and Denies dyspnea on exertion GI Denies hematochezia and Denies change in bowel habits Denies hematuria and Denies difficulty urinating Musc Denies back pain and Denies limited range of motion Neuro Denies focal weakness and Denies convulsions Psych Denies depression and Denies mood swings Physical Exam Vital Signs: Last Vital Signs Pulse 76 10/21/24 13:29 BP 142/88 H 10/21/24 13:29 BMI result Body Mass Index 27.2 Const General: comfortable and no acute distress Orientation/consciousness: patient oriented x3 Neck Neck: Yes no lymphadenopathy Resp Auscultation: clear to auscultation bilaterally Cardio Rhythm: regular rhythm GI Other: Umbilical hernia about 2 cm, reducible, nontender Palpation (GI): Soft to palpation, nontender and no guarding Neuro General: patient oriented x3 Assessment & Plan Assessment & Plan (1) Umbilical hernia: Code(s): K42.9 - Umbilical hernia without obstruction or gangrene Category: Medical Plan: He has an umbilical hernia as described above. He is also scheduled to have a CAT scan of the abdomen in 2 weeks so I am going to wait for these so I can review this and rule out any other hernias. I will see him in the office after his CAT scan and we can plan on doing his umbilical hernia repair. He understands the plan well. He is undergoing surveillance for his history of colon cancer. Coding Level of Care Code New Pt Level 3 (05778) Diagnoses Umbilical hernia K42.9
[2024-10-21 13:29] VITALS: BP 142/88; PULSE 76; BMI 27.2
== END 2024-10-21 14:03 | disposition home or self-care (01) ==
LOC: HO.HGS 13:16
PROVIDERS: PCP Internal Medicine; Visit Provider Surgery
DX: K42.9 Umbilical hernia without obstruction or gangrene (principal)
CPT/HCPCS: 99213

== ENCOUNTER 2024-11-06 11:25 | Outpatient (REF) | payer OTHER, SELFPAY ==
--- NOTE | ~2024-11-06 | CT_ITS ---
EXAMINATION: CT ABDOMEN PELVIS WITH IV CONTRAST HISTORY: Surveillance for history of colon cancer COMPARISON: Comparison is made with the prior examination dated 10/17/2023. TECHNIQUE: CT scan of the abdomen and pelvis was performed following administration of 85 mL Omnipaque 350 using standard departmental protocol. Coronal and sagittal reformatted images were generated and reviewed. Oral contrast material was not administered at the request of the referring physician. This CT exam was performed with one or more of the following dose reduction techniques: automated exposure control, adjustment of the mA and/or kV according to patient size, use of iterative reconstruction technique. DLP: 192 mGy-cm FINDINGS: LOWER CHEST: The visualized lung bases are clear. There is no pleural effusion. CARDIOVASCULATURE: The heart is normal in size. There is no pericardial effusion. LIVER: The liver is normal in size and contour. No liver mass is identified. The hepatic and portal veins are patent. GALLBLADDER / BILE DUCTS: The gallbladder is unremarkable. There is no intra or extrahepatic biliary ductal dilatation. SPLEEN: The spleen is normal in size. No focal splenic lesion is identified. PANCREAS: The pancreas is unremarkable in appearance. ADRENAL GLANDS: Within normal limits. KIDNEYS/RETROPERITONEUM: No renal calculi are identified. There is no hydronephrosis. No renal masses are identified. LYMPH NODES: No abdominal or pelvic lymphadenopathy. VASCULATURE: The abdominal aorta is normal in caliber. MESENTERY/PERITONEUM: No free fluid. No masses. There is no free intraperitoneal gas. STOMACH: The stomach is collapsed, limiting evaluation. SMALL BOWEL: The small bowel is normal in caliber. COLON: The patient is again noted to be status post ascending colectomy. There is a large amount of stool throughout the colon. There is diverticulosis of the descending and sigmoid colon, without evidence of diverticulitis. APPENDIX: The appendix is surgically absent. URINARY BLADDER/PELVIC ORGANS: The urinary bladder is unremarkable. The prostate is mildly enlarged. BONES / SOFT TISSUES: There is a small umbilical hernia containing unobstructed loop of small bowel. There is degenerative disc disease of the spine. CT/CT abdomen pelvis w IV con IMPRESSION: 1. Status post ascending colectomy. No evidence of metastatic disease. 2. Large amount of stool throughout the colon. Diverticulosis of the descending and sigmoid colon, without evidence of diverticulitis. Electronically signed by: Maciel Gutierrez MD 11/06/2024 12:33 PM EDT RP
[2024-11-06] MEDS: iohexoL 350 MG/ML 100 ML INFUS..BTL 85 ML IV (12:23)
--- OUTSIDE RECORDS SUMMARY | 2024-11-06 12:37 | XMS_ITS | Clinical Summary ---
Author Organization 175 [facility] Address 175 [place] [address] Phone Care Team Providers Care Radio Repair Teacher Name Role Phone Chloe Henry MD Primary Care Provider [phone] Social History Tobacco Use Types Packs/Day Years Used Date Smoking Tobacco: Never Assessed Sex and Gender Information Value Date Recorded Sex Assigned at Not on file Legal Sex Male 9:21 AM EDT Gender Identity Not on file Sexual Orientation Not on file Plan of Treatment Upcoming Encounters Date Type Department Care Team ([facility] st Contact Info) Description 11/28/2024 9:15 AM EDT Office Visit Orthopedic Surgery - [place] [address] [phone] Dedrick Beltran DPM [address] [address] Health Maintenance Due Date Last Done Comments [...] 5 Years) and At-Risk Patients (6 to 49 Years) Aged Out No longer eligible b ased on patient's age to complete this topic RSV Immunization Patients Un nikki 20 months Aged Out No longer eligible b ased on patient's age to complete this topic Varicella Vaccines Aged Out No longer eligible based on patient's age to complete this topic Insurance [facility] Care Teams Radio Repair Teacher Relationship Specialty Start Date End Date Chloe Henry MD [address] [place] [address] , [address] [facility] Physician Associ D/B/A: [facility] ADRY Benz PCP - General Internal Medicine 09/07/24
[2024-11-07 09:10] LABS: Creatinine POC 0.9 mg/dL (0.5-1.4); GFR POC > 60
== END 2024-11-06 11:26 | disposition home or self-care (01) ==
LOC: HO.CT 11:25
PROVIDERS: PCP Internal Medicine; Visit Provider Internal Medicine
DX: C18.9 Malignant neoplasm of colon, unspecified (principal)
CPT/HCPCS: 74177; 82565; Q9967

== ENCOUNTER → 2024-11-06 11:27 | Outpatient (BNV) | payer OTHER, SELFPAY | PROVIDERS: PCP Internal Medicine; Visit Provider Radiology Diagnostic Radiology | DX: K57.30 Diverticulosis of large intestine without perforation or abscess without bleeding (principal); K56.41 Fecal impaction | CPT/HCPCS: 74177 ==

== ENCOUNTER 2024-11-15 09:40 | Outpatient (AMB) | payer OTHER, SELFPAY ==
--- NOTE | 2024-11-15 09:44 | MHC.OFFVIS ---
Vital Signs 11/15/24 09:50 Height 5 ft 9 in Weight 175 lb BMI 25.8 BP 179/109 H Blood Pressure Location Lt brachial Position Sitting Pulse 86 Intake Visit Reasons: s/p ct scan 11/06 Intake Note: Patient is seen in office for CT scan results following an umbilical hernia. Pt c/o:continued pain, here for results Leasing Consultant Required: No Accompanied by: Self / Same As Patient Allergies tramadol Allergy (Intermediate, Verified 11/15/24 09:50) muscle cramps Medication List - Last Reconciled 11/15/24 by Celso Bernstein MD atorvastatin 20 mg PO BEDTIME 90 days cholecalciferol (vitamin D3) 50 mcg PO DAILY 90 days cyanocobalamin (vitamin B-12) (Vitamin B-12) 1,000 mcg PO DAILY cyclobenzaprine 10 mg PO BEDTIME PRN 90 days ibuprofen 600 mg PO TID PRN 30 days losartan 50 mg PO DAILY 90 days trazodone 50 mg PO BEDTIME PRN 90 days HPI HPI s/p ct scan 11/06: Details: 64-year-old male here for follow-up for his abdominal hernia. He has felt this lump on his abdominal wall on the area of the umbilicus for ?a while?. He did have a history of hand assisted laparoscopic right colon resection for a T3 N0 adenocarcinoma in 2020 He is overall doing very well with regards to his history of colon cancer. He did not have any chemotherapy. He continues to follow Dr. Schmidt of Oncology. He says that this hernia has been bothering him and he wants to proceed with repair. I had sent him for a CAT scan to define this hernia and is here to discuss this. [facility] Medical History (Updated 11/15/24 @ 10:01 by Celso Bernstein MD) Incisional hernia Transaminitis History of colon cancer Colon cancer Numbness and tingling in left hand History of gibbs Mass of cecum Chest pain Neck pain Impaired glucose tolerance Back pain Surgical History History of colectomy Hx of hand surgery History of esophagogastroduodenoscopy (EGD) H/O colonoscopy History of varicose vein ligation and stripping History of bunionectomy History of excision of mass History of right inguinal hernia repair Family History Maternal Grandmother History of diabetes mellitus History of hypertension Mother Medical history unknown Father Medical history unknown Son No problems noted. Son No problems noted. Son No problems noted. Daughter No problems noted. Social History Household Members: Family Housing: House Are you a primary healthcare financial analyst to a significant other at home: No Do you presently have visiting nurse or other home services: No Alcohol intake: current Alcohol intake frequency: holidays/special occasions only Alcohol type: other Patient Tobacco Use Status: Former Tobacco user e-Cigarette/Vaping Use: Never Used Second Hand Smoke Exposure: No Substance Use Type: Marijuana service: No Current occupational status: unemployed Cognitive needs: No Hearing needs: No Vision needs: No Review of Systems Const Denies chills and Denies fever(s) Card Denies chest pain, Denies dyspnea and Denies dyspnea on exertion Resp Denies cough, Denies dyspnea and Denies dyspnea on exertion GI Denies hematochezia and Denies change in bowel habits Denies hematuria and Denies difficulty urinating Musc Denies back pain and Denies limited range of motion Neuro Denies focal weakness and Denies convulsions Psych Denies depression and Denies mood swings Physical Exam Vital Signs: Last Vital Signs Pulse 86 11/15/24 09:50 BP 179/109 H 11/15/24 09:50 BMI result Body Mass Index 25.8 Const General: comfortable and no acute distress Orientation/consciousness: patient oriented x3 Neck Neck: Yes no lymphadenopathy Resp Auscultation: clear to auscultation bilaterally Cardio Rhythm: regular rhythm GI Other: Fascial defect palpable, about 2 cm in the area of the incision near the umbilicus, reducible Palpation (GI): Soft to palpation, nontender and no guarding Neuro General: patient oriented x3 Assessment & Plan Assessment & Plan (1) Incisional hernia: Code(s): K43.2 - Incisional hernia without obstruction or gangrene Category: Medical Plan: He has a reducible hernia in the area of the umbilicus along the incision likely representing an incisional hernia. The fascial defect appears to be about 2 cm and this has also seen in his CAT scan. This contains bowel loop on his CAT scan I therefore explained to him the technique of repair of this incisional hernia with possible mesh placement. I reviewed the risks including but not limited to bleeding, infections, bowel injury, recurrence, postop pain, as well as the benefits and alternatives. I discussed with him what to expect postoperatively He understands and wants to proceed. He not seem to have any significant medical problems currently. Coding Level of Care Code Est Pt Level 3 (18688) Diagnoses Incisional hernia K43.2
--- OUTSIDE RECORDS SUMMARY | 2024-11-15 09:49 | XMS_ITS | Clinical Summary ---
Author Organization 175 [facility] Address 175 [place] [address] Phone Care Team Providers Care Special Assemblies Supervisor Name Role Phone Chloe Henry MD Primary Care Provider Social History Tobacco Use Types Packs/Day Years Used Date Smoking Tobacco: Never Assessed Sex and Gender Information Value Date Recorded Sex Assigned at Not on file Legal Sex Male 9:21 AM EDT Gender Identity Not on file Sexual Orientation Not on file Plan of Treatment Upcoming Encounters Date Type Department Care Team ([facility] st Contact Info) Description 11/28/2024 9:15 AM EDT Office Visit Orthopedic Surgery - [place] [id number] [phone] Dedrick Beltran DPM [address] [address] Health Maintenance Due Date Last Done Comments [...] Influencers of Health Screening 09/07/2024 Influenza Vaccine (#1) 2024 RSV Immunization Adult Patie nts (1 [...] patient's age to complete this topic Insurance [facility] Care Teams Special Assemblies Supervisor Relationship Specialty Start Date End Date Chloe Henry MD [address] [place] [address] , [address] [facility] Physician Associ D/B/A: [facility] [place], [place] PCP - General Internal Medicine 09/07/24
[2024-11-15 09:50] VITALS: BP 179/109; PULSE 86; BMI 25.8
== END 2024-11-15 09:57 | disposition home or self-care (01) ==
LOC: HO.HGS 09:41
PROVIDERS: PCP Internal Medicine; Visit Provider Surgery
DX: K43.2 Incisional hernia without obstruction or gangrene (principal)
CPT/HCPCS: 99213

== ENCOUNTER → 2024-11-15 09:40 | Outpatient (BNVA) | payer OTHER, SELFPAY | PROVIDERS: PCP Internal Medicine; Visit Provider Surgery | DX: Z71.2 Person consulting for explanation of examination or test findings (principal); K43.2 Incisional hernia without obstruction or gangrene | CPT/HCPCS: 99212 ==

== ENCOUNTER 2024-12-05 08:41 | Outpatient (AMB) | payer OTHER, SELFPAY ==
[2024-12-05 08:47] VITALS: BMI 28.1
--- NOTE | 2024-12-05 08:47 | A.OFFVIS_ITS ---
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 Patient was referred by [facility] 09/17/24. Patient has had x ray of his lumbar spine 07/2020. At today's visit he states he is having pain in his lower back, radiates to his right leg, feels weakness and cramps with prolong standing, walking or sitting.Hx of injection from 2015 with Ron Elliott with good lasting relief. States he has tried P.T years ago with no improvement. Allergies tramadol Allergy (Intermediate, Verified 12/05/24 08:50) muscle cramps Medication List - Last Reconciled 12/05/24 by Riana Gr MD atorvastatin 20 mg PO BEDTIME 90 days cholecalciferol (vitamin D3) 50 mcg PO DAILY 90 days cyanocobalamin (vitamin B-12) (Vitamin B-12) 1,000 mcg PO DAILY cyclobenzaprine 10 mg PO BEDTIME PRN 90 days ibuprofen 600 mg PO TID PRN 30 days losartan 50 mg PO DAILY 90 days trazodone 50 mg PO BEDTIME PRN 90 days HPI Comments Details: Had injections only from Dr. Elliott, [id number]. He recalls that the facet injections than the epidural. Pain is more right sided, goes to hip and posterior thigh, but not lower to foot. He's been swollen on both legs, told by PCP to monitor BP and DM (though not diagnosed diabetes). No recent MRI. Recent lumbar xrays shared with patient, showed disc degeneration between L2-3, L3-4, L4-5, L5-S1. He is active and does home exercises taught by PT previously. [facility] Medical History (Updated 12/05/24 @ 09:07 by Riana Gr MD) Incisional hernia Transaminitis History of colon cancer Colon cancer Numbness and tingling in left hand History of gibbs Mass of cecum Chest pain Neck pain Impaired glucose tolerance Back pain Surgical History History of colectomy Hx of hand surgery History of esophagogastroduodenoscopy (EGD) H/O colonoscopy History of varicose vein ligation and stripping History of bunionectomy History of excision of mass History of right inguinal hernia repair Family History Maternal Grandmother History of diabetes mellitus History of hypertension Mother Medical history unknown Father Medical history unknown Son No problems noted. Son No problems noted. Son No problems noted. Daughter No problems noted. 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 Patient was appropriately conversant and oriented. Good historian. MSK: No specific abnormalities found on inspection of the spine and all extremities. Tender on right lower lumbar facets. No tenderness over SI joint. No tenderness over GT. Lumbar ROM was full. Bilateral hip, knee and ankle ROM WNL. No ligamentous laxity or crepitance. No increased effusion. Straight-leg raising test negative. FABERE test negative. Strength is 5/5 in all muscle groups tested. No increased tone noted. Neurological: Neurologic examination of the upper and lower extremities was nonfocal with intact sensation, muscle stretch reflexes and without focal motor deficits . Hamm?s negative bilaterally. Babinski was down going bilaterally. Clonus was negative. Gait is non-antalgic without loss of balance. Vital Signs: BMI result Body Mass Index 28.1 Results Reviewed Results Reviewed: I independently reviewed the results of the following: X-ray images reviewed, shared with patient, decreased disc spaces seen L2-3, L3- 4, L4-5, L5-S1 Ordering Physician: Chloe Austin MD Date of Service: 09/16/24 Procedure(s): XR lumbar spine 2-3V Accession Number(s): [id number] cc: Chloe Austin MD~ CLINICAL HISTORY: M54.50 - Low back pain, unspecified 3 views lumbar spine Comparison: None Findings: Normal vertebral body alignment. No acute fractures or dislocation. There is multilevel degenerative disc disease with disc space narrowing seen particularly at the L2-3, L4-5 and L5-S1 levels. IMPRESSION: There is multilevel degenerative disc disease with disc space narrowing seen particularly at the L2-3, L4-5 and L5-S1 levels. This document has been electronically signed by: Adam Vela MD on 09/16/2024 09:34:37 I reviewed records from the following: PCP Assessment & Plan Assessment & Plan (1) Lumbar pain: Code(s): M54.50 - Low back pain, unspecified Category: Medical (2) Lumbar radiculopathy: Code(s): M54.16 - Radiculopathy, lumbar region Category: Medical (3) Lumbar facet joint pain: Code(s): M54.59 - Other low back pain Category: Medical Plan Pain could be coming from lumbar facet however x-ray shows significantly decreased disc spaces. I think it is reasonable to obtain further imaging to rule out right-sided nerve compression that could be causing his right-sided pain. Patient had undergone adequate conservative management including PT and home exercises without improvement of condition. It would be reasonable to obtain further imaging such as MRI. An MRI would help rule out any serious condition, guide treatment and assess prognosis for recovery. Assessment and plan discussed with patient, and patient was agreeable. All questions were answered thoroughly. Follow up after MRI. Riana Gr MD, AYLEEN Board Certified, [place] Board [employer] Medicine and Rehabilitation (ABPMR) Board Certified, [place] Board of Electrodiagnostic Medicine (ABEM) Orders: Orders MR lumbar spine wo con Today M54.16 - Radiculopathy, lumbar region, M54.50 - Low back pain, unspecified, M54.59 - Other low back pain Coding Level of Care Code New Pt Level 4 (83739) Diagnoses Lumbar pain M54.50 Lumbar radiculopathy M54.16 Lumbar facet joint pain M54.59
--- OUTSIDE RECORDS SUMMARY | 2024-12-05 08:57 | XMS_ITS | Clinical Summary ---
Author Organization [address] [place] [address] Address [address] [place] [address] Phone Care Team Providers Care Dietist Name Role Phone Chloe Henry MD Primary Care Provider [phone] Social History Tobacco Use Types Packs/Day Years Used Date Smoking Tobacco: Never Assessed Sex and Gender Information Value Date Recorded Sex Assigned at Not on file Legal Sex Male 9:21 AM EDT Gender Identity Not on file Sexual Orientation Not on file Plan of Treatment Upcoming Encounters Date Type Department Care Team ([facility] st Contact Info) Description 01/22/2025 9:00 AM EDT Office Visit Orthopedic Surgery - [place] [address] [phone] Dedrick Beltran DPM [address] [address] Health Maintenance Due Date Last Done Comments DTaP,Tdap,and Td Vaccines (1 - Tdap) 1981 Pneumococcal Vaccine: 50+ Ye ars (1 of 1 - PCV) 2012 Zoster Vaccines (1 of 2) 2012 COVID-19 Vaccine ( - 2023-2 5 season) 2023 Depression Screening 05/01/2024 Cholesterol Screening (Lipid Panel) 09/07/2024 Colorectal Cancer Screening: Colonoscopy 09/07/2024 HIV Screening 09/07/2024 Hepatitis C Screening [...] patient's age to complete this topic Insurance [facility] PL[facility] Care Teams Dietist Relationship Specialty Start Date End Date Chloe Henry MD [address] [place] [address] , [address] [place] [address] Physician Associ D/B/A: [facility] [place], [place] PCP - General Internal Medicine 09/07/24
== END 2024-12-05 09:10 | disposition home or self-care (01) ==
LOC: HO.HOS 08:42
PROVIDERS: PCP Internal Medicine; Visit Provider Physical Medicine & Rehabilitation
DX: M54.50 Low back pain, unspecified (principal); M54.16 Radiculopathy, lumbar region; M54.59 Other low back pain
CPT/HCPCS: 99204

== ENCOUNTER → 2024-12-05 08:41 | Outpatient (BNVA) | payer OTHER, SELFPAY | PROVIDERS: PCP Internal Medicine; Visit Provider Physical Medicine & Rehabilitation | DX: M54.16 Radiculopathy, lumbar region (principal); M54.50 Low back pain, unspecified | CPT/HCPCS: 99202 ==

== ENCOUNTER → 2024-12-23 07:23 | Outpatient (BNV) | payer OTHER, SELFPAY | PROVIDERS: PCP Internal Medicine; Visit Provider Radiology Diagnostic Radiology | DX: M47.817 Spondylosis without myelopathy or radiculopathy, lumbosacral region (principal); M99.63 Osseous and subluxation stenosis of intervertebral foramina of lumbar region | CPT/HCPCS: 72148 ==

== ENCOUNTER 2024-12-23 07:24 | Outpatient (REF) | payer OTHER, SELFPAY ==
--- NOTE | ~2024-12-23 | MR_ITS ---
EXAMINATION: MR LUMBAR SPINE WITHOUT CONTRAST CLINICAL INFORMATION: Low Back pain. COMPARISON: January 19, 2019. TECHNIQUE: MRI of the lumbar spine was obtained using routine sequences without contrast. FINDINGS: Last rib-bearing vertebra labeled T12. No bone marrow STIR signal abnormality. There is multilevel marginal osteophyte formation and disc desiccation decreased intervertebral disc height and subchondral cyst formation pronounced at L5-S1, L4-5 and L2-3 levels. There is a grade 1 retrolisthesis, L1 to, L2-3, L4-5 and L5-S1 levels. Conus medullaris ends at pedicle of L1 with normal signal. T11-12: Right subarticular disc herniation abutting the ventral aspect of the cord without cord signal abnormality. No neuroforamina stenosis. T12-L1: No disc herniation. No neuroforamina stenosis. L1-2: Right subarticular herniated disc about and the neural elements of the cauda equina causing central spinal canal stenosis. Bilateral facet joint hypertrophy. No gross neuroforamina stenosis. L2-3: Broad-based disc bulging. Facet joint and ligamentum flavum hypertrophy. Reduced AP diameter of the thecal sac. CSF effacement of the ventral aspect of the thecal sac. Bilateral neuroforamina stenosis encroaching the exiting nerve roots. L3-4: Broad-based disc bulging. Facet joint and ligamentum flavum hypertrophy. There is CSF effacement of thecal sac. Central spinal canal and bilateral neuroforamina stenosis encroaching likely compressing the neural elements both thecal sac and the exiting nerve roots. L4-5: Broad-based disc bulging. Facet joint and ligamentum flavum hypertrophy. CSF effacement of thecal sac central spinal canal and bilateral neuroforamina stenosis, right greater than the left side compressing the neural elements. L5-S1: Broad-based disc bulging. Prominence of the epidural fat in a circumferential fashion. Central spinal canal stenosis and reduced diameter of the thecal sac. There is bilateral neuroforamina stenosis compressing the exiting nerve roots as well. No prevertebral compartment hematoma, mass or fluid collection. Soft tissue fullness right adrenal gland without nodular lesion. MR/MR lumbar spine wo con IMPRESSION: Right subarticular herniated disc at T11-12 abutting the lower thoracic spinal cord without cord edema and or myelopathy. Right subarticular herniated disc at L1 to causing central spinal canal stenosis and likely encroaching the neural elements of the filum terminalis/thecal sac. Multilevel lumbar spondylosis resulting in central spinal canal and bilateral neuroforamina stenosis from L2-3 to L5-S1 and likely compressing the neural elements. Epidural lipomatosis, L5-S1. Electronically signed by: Jonah Douglass MD 12/23/2024 09:11 AM EDT
--- OUTSIDE RECORDS SUMMARY | 2024-12-23 07:27 | XMS_ITS | Clinical Summary ---
Author Organization [address] [place] [address] Address [address] [place] [address] Phone Care Team Providers Care Security Alarm Technician Name Role Phone Chloe Henry MD Primary Care Provider [phone] Social History Tobacco Use Types Packs/Day Years Used Date Smoking Tobacco: Never Assessed Sex and Gender Information Value Date Recorded Sex Assigned at Not on file Legal Sex Male 9:21 AM EDT Gender Identity Not on file Sexual Orientation Not on file Plan of Treatment Upcoming Encounters Date Type Department Care Team ([facility] st Contact Info) Description 01/22/2025 9:00 AM EDT Office Visit Orthopedic Surgery - [place] [phone] [phone] Dedrick Beltran DPM [address] [address] Health Maintenance Due Date Last Done Comments [...] patient's age to complete this topic Insurance [facility] PLAN Care Teams Security Alarm Technician Relationship Specialty Start Date End Date Chloe Henry MD [address] [place] [address] , [address] [place] [address] Physician Associ D/B/A: [facility] [place], [place] PCP - General Internal Medicine 09/07/24
== END 2024-12-23 07:25 | disposition home or self-care (01) ==
LOC: HO.MRI 07:24
PROVIDERS: PCP Internal Medicine; Visit Provider Physical Medicine & Rehabilitation
DX: M54.59 Other low back pain (principal); M54.16 Radiculopathy, lumbar region
CPT/HCPCS: 72148

== ENCOUNTER 2024-12-26 10:56 | Outpatient (AMB) | payer OTHER, SELFPAY ==
--- NOTE | 2024-12-26 11:13 | A.OFFVIS_ITS ---
Vital Signs 12/26/24 11:16 Height 5 ft 9 in Weight 180 lb BMI 26.6 Intake Visit Reasons: MRI review of Lumbar Spine Intake Note: Chalo is a 64 year old male who presents today as a MRI Review of the Lumbar Spine, 12/23/24. Patient states that he feels very stiff and both legs/hips have radiating numbness and tingling. Allergies tramadol Allergy (Intermediate, Verified 12/26/24 11:16) muscle cramps Medication List - Last Reconciled 12/26/24 by Riana Gr MD atorvastatin 20 mg PO BEDTIME 90 days cholecalciferol (vitamin D3) 50 mcg PO DAILY 90 days cyanocobalamin (vitamin B-12) (Vitamin B-12) 1,000 mcg PO DAILY cyclobenzaprine 10 mg PO BEDTIME PRN 90 days ibuprofen 600 mg PO TID PRN 30 days losartan 50 mg PO DAILY 90 days trazodone 50 mg PO BEDTIME PRN 90 days HPI Comments Details: Had injections only from Dr. Elliott, [id number]. He recalls that the facet injections and epidurals. Offered surgery but deferred back then, then Dr. Elliott retired. Pain is more right sided, goes to hip and posterior thigh, but not lower to foot. He's been swollen on both legs, told by PCP to monitor BP and DM (though not diagnosed diabetes). Recent lumbar xrays shared with patient, showed disc degeneration between L2-3, L3-4, L4-5, L5-S1. He is active and does home exercises taught by PT previously. MRI lumbar spine done, showing moderate size right-sided disc herniation L1-L2. But also multilevel spondylosis from disc bulge and facet arthritis causing foraminal stenosis, right worse than left, and central stenosis moderate at least L4-5 and L3-4. On a regular basis, pain is 8/10. More to right hip bone and inner thigh. Both feet tingling . Claudication symptoms but also worse with prolonged sitting. [facility] Medical History (Updated 12/26/24 @ 11:31 by Riana Gr MD) Incisional hernia Transaminitis History of colon cancer Colon cancer Numbness and tingling in left hand History of gibbs Mass of cecum Chest pain Neck pain Impaired glucose tolerance Back pain Surgical History History of colectomy Hx of hand surgery History of esophagogastroduodenoscopy (EGD) H/O colonoscopy History of varicose vein ligation and stripping History of bunionectomy History of excision of mass History of right inguinal hernia repair Family History Maternal Grandmother History of diabetes mellitus History of hypertension Mother Medical history unknown Father Medical history unknown Son No problems noted. Son No problems noted. Son No problems noted. Daughter No problems noted. 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 Patient was appropriately conversant and oriented. Good historian. MSK: No specific abnormalities found on inspection of the spine and all extremities. Tender on right lower lumbar facets and paraspinals. No tenderness over SI joint. No tenderness over GT. Lumbar ROM was full. Bilateral hip, knee and ankle ROM WNL. No ligamentous laxity or crepitance. No increased effusion. Straight-leg raising test negative. FABERE test negative. Strength is 5/5 in all muscle groups tested. No increased tone noted. Neurological: Neurologic examination of the upper and lower extremities was nonfocal with intact sensation, muscle stretch reflexes and without focal motor deficits . Babinski was down going bilaterally. Clonus was negative. Gait is non-antalgic without loss of balance. Vital Signs: BMI result Body Mass Index 26.6 Results Reviewed Results Reviewed: Ordering Physician: Riana Paulino Date of Service: 12/23/24 Procedure(s): MR lumbar spine wo con Accession Number(s): [id number] cc: Chloe Austin MD; Riana Powell EXAMINATION: MR LUMBAR SPINE WITHOUT CONTRAST CLINICAL INFORMATION: Low Back pain. COMPARISON: January 19, 2019. TECHNIQUE: MRI of the lumbar spine was obtained using routine sequences without contrast. FINDINGS: Last rib-bearing vertebra labeled T12. No bone marrow STIR signal abnormality. There is multilevel marginal osteophyte formation and disc desiccation decreased intervertebral disc height and subchondral cyst formation pronounced at L5-S1, L4-5 and L2-3 levels. There is a grade 1 retrolisthesis, L1 to, L2-3, L4-5 and L5-S1 levels. Conus medullaris ends at pedicle of L1 with normal signal. T11-12: Right subarticular disc herniation abutting the ventral aspect of the cord without cord signal abnormality. No neuroforamina stenosis. T12-L1: No disc herniation. No neuroforamina stenosis. L1-2: Right subarticular herniated disc about and the neural elements of the cauda equina causing central spinal canal stenosis. Bilateral facet joint hypertrophy. No gross neuroforamina stenosis. L2-3: Broad-based disc bulging. Facet joint and ligamentum flavum hypertrophy. Reduced AP diameter of the thecal sac. CSF effacement of the ventral aspect of the thecal sac. Bilateral neuroforamina stenosis encroaching the exiting nerve roots. L3-4: Broad-based disc bulging. Facet joint and ligamentum flavum hypertrophy. There is CSF effacement of thecal sac. Central spinal canal and bilateral neuroforamina stenosis encroaching likely compressing the neural elements both thecal sac and the exiting nerve roots. L4-5: Broad-based disc bulging. Facet joint and ligamentum flavum hypertrophy. CSF effacement of thecal sac central spinal canal and bilateral neuroforamina stenosis, right greater than the left side compressing the neural elements. L5-S1: Broad-based disc bulging. Prominence of the epidural fat in a circumferential fashion. Central spinal canal stenosis and reduced diameter of the thecal sac. There is bilateral neuroforamina stenosis compressing the exiting nerve roots as well. No prevertebral compartment hematoma, mass or fluid collection. Soft tissue fullness right adrenal gland without nodular lesion. MR/MR lumbar spine wo con IMPRESSION: Right subarticular herniated disc at T11-12 abutting the lower thoracic spinal cord without cord edema and or myelopathy. Right subarticular herniated disc at L1 to causing central spinal canal stenosis and likely encroaching the neural elements of the filum terminalis/thecal sac. Multilevel lumbar spondylosis resulting in central spinal canal and bilateral neuroforamina stenosis from L2-3 to L5-S1 and likely compressing the neural elements. Epidural lipomatosis, L5-S1. Electronically signed by: Jonah Douglass MD 12/23/2024 09:11 AM EDT Assessment & Plan Assessment & Plan (1) Lumbar disc herniation with radiculopathy: Code(s): M51.16 - Intervertebral disc disorders with radiculopathy, lumbar region Category: Medical (2) Lumbar stenosis with neurogenic claudication: Code(s): M48.062 - Spinal stenosis, lumbar region with neurogenic claudication Category: Medical Plan Reviewed MRI films with patient. Lumbar disc herniation right-sided L1-L2, with multilevel spondylosis from disc bulge and facet arthritis, causing moderate spinal stenosis L3-4 and L4-5. Chronic lower back pain, previously under care of Dr. Elliott. No neurologic deficits today despite MRI. Continues to have more right-sided back pain/leg pain. We discussed and agreed on sending him to neuro spine to see if he has any surgical options at this point. If none, we may refer him for injections. Assessment and plan discussed with patient, and patient was agreeable. All questions were answered thoroughly. Riana Gr MD, AYLEEN Board Certified, [place] Board [employer] and Rehabilitation (ABPMR) Board Certified, [place] Board of Electrodiagnostic Medicine (ABEM) Orders: Referrals Neurosurgery Referral M48.062 - Spinal stenosis, lumbar region with neurogenic claudication, M51.16 - Intervertebral disc disorders with radiculopathy, lumbar region Coding Level of Care Code Est Pt Level 4 (23347) Diagnoses Lumbar disc herniation with radiculopathy M51.16 Lumbar stenosis with neurogenic claudication M48.062
[2024-12-26 11:16] VITALS: BMI 26.6
--- OUTSIDE RECORDS SUMMARY | 2024-12-26 12:21 | XMS_ITS | Clinical Summary ---
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 Name Role Phone Chloe Henry MD Primary Care Provider [phone] Social History Tobacco Use Types Packs/Day Years Used Date Smoking Tobacco: Never Assessed Sex and Gender Information Value Date Recorded Sex Assigned at Not on file Legal Sex Male 9:21 AM EDT Gender Identity Not on file Sexual Orientation Not on file Plan of Treatment Upcoming Encounters Date Type Department Care Team ([facility] st Contact Info) Description 01/22/2025 9:00 AM EDT Office Visit Orthopedic Surgery [facility] [address] [facility] [address] [place] [address] Dedrick Beltran, SIMON [address] [place] [address] Health Maintenance Due Date Last Done Comments [...] patient's age to complete this topic Insurance [facility] Care Teams Weight Loss Centre Manager Relationship Specialty Start Date End Date Chloe Henry MD [address] [place] [address] , [address] [facility] Physician Associ D/B/A: [facility] [place] PCP - General Internal Medicine 09/07/24
== END 2024-12-26 12:12 | disposition home or self-care (01) ==
LOC: HO.HOS 10:56
PROVIDERS: PCP Internal Medicine; Visit Provider Physical Medicine & Rehabilitation
DX: M51.16 Intervertebral disc disorders with radiculopathy, lumbar region (principal); M48.062 Spinal stenosis, lumbar region with neurogenic claudication
CPT/HCPCS: 99214

== ENCOUNTER → 2024-12-26 10:56 | Outpatient (BNVA) | payer OTHER, SELFPAY | PROVIDERS: PCP Internal Medicine; Visit Provider Physical Medicine & Rehabilitation | DX: Z71.2 Person consulting for explanation of examination or test findings (principal); M48.062 Spinal stenosis, lumbar region with neurogenic claudication; M51.16 Intervertebral disc disorders with radiculopathy, lumbar region | CPT/HCPCS: 99212 ==

== ENCOUNTER 2025-01-23 08:28 | Outpatient (AMB) | payer OTHER, SELFPAY ==
--- NOTE | 2025-01-23 08:30 | MHC.OFFVIS ---
Vital Signs 01/23/25 08:36 Height 5 ft 9 in Weight 180 lb BMI 26.6 Intake Visit Reasons: OV-Lumbar radiculopathy f/up & from neuro spine Intake Note: Chalo is a 64 year old male who presents today as a follow up for his Lumbar radiculopathy. At last visit on 12/26/24 we referred him to Neuro spine and was booked for 01/13/25. At today's visit he states that he did not attend due to not getting a phone call but in the workload messages it states that their office spoke with the patient. Patient reports that his lower back pain is still radiating into the hips and that his back is still feeling very stiff . Allergies tramadol Allergy (Intermediate, Verified 01/23/25 08:36) muscle cramps Medication List - Last Reconciled 01/23/25 by Riana Gr MD atorvastatin 20 mg PO BEDTIME 90 days cholecalciferol (vitamin D3) 50 mcg PO DAILY 90 days cyanocobalamin (vitamin B-12) (Vitamin B-12) 1,000 mcg PO DAILY cyclobenzaprine 10 mg PO BEDTIME PRN 90 days ibuprofen 600 mg PO TID PRN 30 days losartan 50 mg PO DAILY 90 days trazodone 50 mg PO BEDTIME PRN 90 days HPI Comments Details: Had injections only from Dr. Elliott, [id number]. He recalls that the facet injections and epidurals. Offered surgery but deferred back then, then Dr. Elliott retired. Pain is more right sided, goes to hip and posterior thigh, but not lower to foot. Recent lumbar xrays shared with patient, showed disc degeneration between L2-3, L3-4, L4-5, L5-S1. He is active and does home exercises taught by PT previously. MRI lumbar spine done, showing moderate size right-sided disc herniation L1-L2. But also multilevel spondylosis from disc bulge and facet arthritis causing foraminal stenosis, right worse than left, and central stenosis moderate at least L4-5 and L3-4. On a regular basis, pain is 8/10. More to right hip bone and inner thigh. Both feet tingling . Claudication symptoms but also worse with prolonged sitting. As mentioned, he failed to show to Neurospine appointment last 01/13. Patient says he did not get a call. He says today that he thought he was coming in for injections. [facility] Medical History (Updated 12/26/24 @ 11:31 by Riana Gr MD) Incisional hernia Transaminitis History of colon cancer Colon cancer Numbness and tingling in left hand History of gibbs Mass of cecum Chest pain Neck pain Impaired glucose tolerance Back pain Surgical History History of colectomy Hx of hand surgery History of esophagogastroduodenoscopy (EGD) H/O colonoscopy History of varicose vein ligation and stripping History of bunionectomy History of excision of mass History of right inguinal hernia repair Family History Maternal Grandmother History of diabetes mellitus History of hypertension Mother Medical history unknown Father Medical history unknown Son No problems noted. Son No problems noted. Son No problems noted. Daughter No problems noted. 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 Cognitive needs: No Hearing needs: No Vision needs: No Physical Exam Vital Signs: BMI result Body Mass Index 26.6 Assessment & Plan Assessment & Plan (1) Lumbar disc herniation with radiculopathy: Code(s): M51.16 - Intervertebral disc disorders with radiculopathy, lumbar region Category: Medical (2) Lumbar stenosis with neurogenic claudication: Code(s): M48.062 - Spinal stenosis, lumbar region with neurogenic claudication Category: Medical Plan As previously discussed, MRI showed lumbar disc herniation right-sided L1-L2, with multilevel spondylosis from disc bulge and facet arthritis, causing moderate spinal stenosis L3-4 and L4-5. Chronic lower back pain, previously under care of Dr. Elliott. No neurologic deficits despite MRI. He unfortunately missed his appointment with Neurospine. We will try to get him back to their schedule. Assessment and plan discussed with patient, and patient was agreeable. All questions were answered thoroughly. Riana Gr MD, AYLEEN Board Certified, [place] [employer] and Rehabilitation (ABPMR) Board Certified, [place] Board [employer] Electrodiagnostic Medicine (ABEM) Coding Level of Care Code Est Pt Level 3 (73830) Diagnoses Lumbar disc herniation with radiculopathy M51.16 Lumbar stenosis with neurogenic claudication M48.062
[2025-01-23 08:36] VITALS: BMI 26.6
--- OUTSIDE RECORDS SUMMARY | 2025-01-23 09:01 | XMS_ITS | Clinical Summary ---
Author Organization [address] [place] [address] Address [address] [place] [address] Phone Care Team Providers Care [employer] [place] Frame Builder Name Role Phone Chloe Henry MD Primary Care Provider [phone] Social History Tobacco Use Types Packs/Day Years Used Date Smoking Tobacco: Never Assessed Sex and Gender Information Value Date Recorded Sex Assigned at Not on file Legal Sex Male 9:21 AM EDT Gender Identity Not on file Sexual Orientation Not on file Plan of Treatment Upcoming Encounters Date Type Department Care Team ([facility] st Contact Info) Description 02/19/2025 1:45 PM EDT Office Visit Orthopedic Surgery - [place] [id number] [id number] Dedrick Beltran DPM [address] [address] Health Maintenance Due Date Last Done Comments DTaP,Tdap,and Td Vaccines (1 - Tdap) 1981 Pneumococcal Vaccine: 50+ Ye ars (1 of 1 - PCV) 2012 Zoster Vaccines (1 of 2) 2012 Depression Screening 05/01/2024 Cholesterol Screening (Lipid Panel) 09/07/2024 Colorectal Cancer Screening: Colonoscopy 09/07/2024 HIV Screening 09/07/2024 Hepatitis C Screening 09/07/2024 Social Influencers of Health Screening 09/07/2024 COVID-19 Vaccine ( - 2023-2 5 season) 2024 Influenza Vaccine (#1) 2024 RSV Immunization Adult [...] patient's age to complete this topic Insurance [employer] Care Teams [employer] [place] Frame Builder Relationship Specialty Start Date End Date Chloe Hnery MD [address] [place] [address] , [address] [place] [address] Physician Associ D/B/A: [facility] [place], [place] PCP - General Internal Medicine 09/07/24
== END 2025-01-23 09:40 | disposition home or self-care (01) ==
LOC: HO.HOS 08:28
PROVIDERS: PCP Internal Medicine; Visit Provider Physical Medicine & Rehabilitation
DX: M51.16 Intervertebral disc disorders with radiculopathy, lumbar region (principal); M48.062 Spinal stenosis, lumbar region with neurogenic claudication
CPT/HCPCS: 99213

== ENCOUNTER → 2025-01-23 08:28 | Outpatient (BNVA) | payer OTHER, SELFPAY | PROVIDERS: PCP Internal Medicine; Visit Provider Physical Medicine & Rehabilitation | DX: M51.16 Intervertebral disc disorders with radiculopathy, lumbar region (principal); M48.062 Spinal stenosis, lumbar region with neurogenic claudication | CPT/HCPCS: 99212 ==